=== PATIENT | female | born 1955 | race Caucasian/White ===

== ENCOUNTER 2017-01-31 13:18 | Inpatient (IN) | payer OTHER, MEDICAID ==
[2017-01-31] MEDS ORDERED: DUONEB 0.5 MG/3 MG NEB ONE (13:41)
[2017-01-31] MEDS ORDERED: SOLU-MEDROL 125 MG VIAL IVP ONE (13:41)
[2017-01-31] MEDS ORDERED: LEVAQUIN PREMIX IV 500 MG 500 MG/100 ML BAG IV ONE ×2 (13:44→14:24)
--- NOTE | 2017-01-31 13:49 | DR.GENAD ---
HPI - PCP Primary Care Physician: MARVIN STEPHENSON - Complaint/Symptoms Chief Complaint Doctors Comments: Patient states she has had a cough with wheezing for the past three weeks with SOB bt denies fever, chills, nausea or vomiting. States she has been coughing up thick yellow-white sputum. States she has been using the Combivent inhalers as needed. States she has home oxygen and usually use four liters but recently she has needed six liters to keep her oxygen up. She is a diabetic and states she is a patient of Dr. Young and she talke with his assistant to the vice president today and they told her she needed to come to the emergency for possible admission. She denies tobacco or alcohol usage. Chief Complaint:: PT STATES " I HAVE BEEN SOB, AND I DON'T HAVE AN 02 TANK TO GET TO THE DR. AND I HAVE BEEN FIGHTING PNUEMONIA, OR THE FLU". Self Treatment fo Chief Complaint: PT WEARS HOME 02 AT 6-7 LITERS - Nurses notes reviewed Nurses Notes Review: Yes - Source History Provided: Patient - Mode of Arrival Mode of Arrival: Stretcher - Timing Onset of Chief Complaint: 01/13/17 Came on: Suddenly - Duration Duration: Intermittent How lon Duration: Days - Location Location: SOB and problems breathin - Severity Severity: Moderate - Modifying Factors Worsens:: movement Improves:: nothing PMH - PMH Past Medical History: Yes Past Medical History: Asthma, COPD, Diabetes, Hyperthyroidism Past Surgical History: Yes Surgical History: Other - Family History History of Family Medical Conditions: No - Social History Does any household member use tobacco: Yes Do you use any recreational Drugs:: No Lives With: Family Lives Where: Home - infectious screening In the last 2 months have you had wt loss of >10#?: NO Have you had fever, night sweats or hemotysis?: No Have you traveled outside the country in the last 6 months?: No Isolation: Standard ROS - Review of Systems Constitutional: No Symptoms Reported, Weakness, Loss of Appetite Eyes: No Symptoms Reported. negative: See HPI, Eye Pain, Blurred Vision, Tearing, Discharge, Photophobia, Diplopia, Other ENTM: No Symptoms Reported, Nose Discharge, Nose Congestion Respiratoy: No Symptoms Reported, Productive Cough, Short of Breath, Wheezing Cardiovascular: No Symptoms Reported. negative: See HPI, Chest Pain, Edema, Palpitations, Syncope, Cyanosis, Skin Mottling, Other Gastrointestinal/Abdominal: No Symptoms Reported. negative: See HPI, Abdominal Pain, Constipation, Diarrhea, Nausea, Vomiting, Food Intolerance, Other Genitourinary: No Symptoms Reported Neurological: No Symptoms Reported Musculoskeletal: No Symptoms Reported Integumentary: No Symptoms Reported Hematologic/Lymphatic: No Symptoms Reported Endocrine: No Symptoms Reported Psychiatric: No Symptoms Reported PE - Vital Signs Vitals: Temperature 97.0 F Pulse Rate 132 Respiratory Rate 20 Blood Pressure [Right Arm] 83/43 Blood Pressure 144/100 O2 Sat by Pulse Oximetry 88 - General Limitations: No Limitations General Appearance: Alert, In Distress (moderate) - Head Head Exam: Normal Inspection, Atraumatic, Normocephalic - Eyes Eye exam: Normal Appearance, PERRL, EOMI. negative: Scleral Icterus, Conjunctival Injection, Nystagmus, Miosis, Mydrasis, Periorbital Swelling, Periorbital Tenderness, Other - ENT ENT Exam: Normal Exam, Normal Oropharynx, Normal External Ear Exam, Mucous Membranes Moist, TM's Normal Bilaterally External Ear Exam: Normal External Inspection TM/Canal Exam: Bilateral Normal Nose Exam: Normal Nose Exam Mouth Exam: Normal Inspection Throat Exam: Normal Inspection. negative: Tonsillar Erythema, Tonsillomegaly, Tonsillar Exudate, R Peritonsillar Mass, L Peritonsillar Mass, Muffled Voice, Other - Neck Neck Exam: Normal Inspection, Full ROM, Trachea Midline - Chest Chest Inspection: Normal Inspection, Symmetric Chest Wall Rise - Respiratory Respiratory Exam: Normal Lung Sounds Bilat, Prolonged Expiratory Phase Respiratory Exam: Bilateral Wheezing, Bilateral Decreased Breath Sounds, Left Rales - Cardiovascular Cardiovascular Exam: Regular Rate, Normal Rhythm, Normal Heart Sounds, Systolic Murmur - Abdominal Exam Abdominal Exam: Normal Inspection, Normal Bowel Sounds, Soft. negative: Distention, Tenderness, Guarding, Rebound, Rigidity, Dimnished Bowel Sounds, Hyperactive Bowel Sounds, Hypoactive Bowel Sounds, Organomegaly, Trauma, Incision, Ascites, Mass, Bruit, Pulsatile Mass, Hernia, Other Abdominal Tenderness: negative: RUQ, RLQ, LUQ, LLQ, Epigastrium, Suprapubic, Diffuse, Mild, Moderate, Severe, Other - Extremities Extremities Exam: Normal Inspection, Full ROM, Normal Capillary Refill. negative: Tenderness, Edema, Joint Swelling, Calf Tenderness, Other - Back Back Exam: Normal Inspection, Full ROM, Tenderness. negative: (R) CVA Tenderness, (L) CVA Tenderness, Muscle Spasm, Paraspinal Tenderness, Vertebral Tenderness, Rashes, (R) Sciatic Notch Tenderness, (L) Sciatic Notch Tendern, (R ) Straight Leg Raise, (L) Straight Leg Raise, Other - Neurologic Neurological Exam: Alert, Oriented X3, CN II-XII Intact, Reflexes Normal. negative: Normal Gait (gait not tested) - Psychiatric Psychiatric Exam: Normal Affect, Normal Mood. negative: Depressed, Agitated, Anxious, Flat Affect, Manic, Homicidal Ideation, Suicidal Ideation, Other - Skin Skin Exam: Warm, Dry, Intact, Normal Color. negative: Rash, Cyanosis, Diaphoresis, Erythema, Pallor, Mottled, Other Course - Reevaluation 1st: Improved - Consultation Called: 16:23 Call Returned: 16:23 (Dr. Springer to admit) - Education/Counseling Education/Counseling: Patient, Family Educated On: Treatment, Diagnosis, Prognosis, Needs for Follow Up ROR - Labs Reviewed Laboratory Results Reviewed?: Yes (all labs and x-ray results reviewed and discussed with patient) Result Diagrams: 01/31/17 13:55 01/31/17 13:55 Laboratory: WBC 8.0 X10^3/uL (3.6-10.0) 01/31/17 13:55 RBC 4.13 X10^6/uL (3.5-5.4) 01/31/17 13:55 Hgb 12.0 g/dL (12.0-16.0) 01/31/17 13:55 Hct 36.8 % (36.0-47.0) 01/31/17 13:55 MCV 88.9 fL (80.0-100.0) 01/31/17 13:55 MCH 29.0 pg (27.0-34.0) 01/31/17 13:55 MCHC 32.6 g/dL (33.0-35.0) L 01/31/17 13:55 RDW 13.0 % (11.6-16.5) 01/31/17 13:55 Plt Count 355 X10^3/uL (150.0-450.0) 01/31/17 13:55 MPV 7.0 fL (7.4-11.0) L 01/31/17 13:55 Neut % 83.2 % (42.0-75.0) H 01/31/17 13:55 Lymph % 8.0 % (21.0-51.0) L 01/31/17 13:55 [place] % 7.5 % (0.0-13.0) 01/31/17 13:55 Eos % 0.8 % (0.9-2.9) L 01/31/17 13:55 Baso % 0.5 % (0.2-1.0) 01/31/17 13:55 Neut # 6.6 x10^3/uL (2.2-4.8) H 01/31/17 13:55 Lymph # 0.6 X10^3/uL (1.3-2.9) L 01/31/17 13:55 [place] # 0.6 x10^3/uL (0.3-0.8) 01/31/17 13:55 Eos # 0.1 x10^3/uL (0.0-0.2) 01/31/17 13:55 Baso # 0.0 X10^3/uL (0.0-0.1) 01/31/17 13:55 Absolute Nucleated RBC 0.0 /100WBC 01/31/17 13:55 INR Target Range - 01/31/17 13:55 INR 1.00 (0.8-1.3) 01/31/17 13:55 PTT 22.8 SECONDS (22.9-36.5) L 01/31/17 13:55 PTT Comment - 01/31/17 13:55 Sample Site rrad 01/31/17 13:41 ABG pH 7.380 (7.35-7.45) 01/31/17 13:41 ABG pCO2 99.0 mmHg (35.0-45.0) H* 01/31/17 13:41 ABG pO2 150.0 mmHg (80.0-100.0) H 01/31/17 13:41 ABG HCO3 58.6 mmol/L (22-26) H* 01/31/17 13:41 ABG O2 Saturation 99.0 % (90-100) 01/31/17 13:41 ABG Base Excess 27.5 mmol/L (-2.0-2.0) H 01/31/17 13:41 [place] Test pos 01/31/17 13:41 A-a Gradient -24.0 mmHg 01/31/17 13:41 FiO2 35 01/31/17 13:41 Blood Gas Comments kirk well 01/31/17 13:41 Sodium 140 mmol/L (136-145) 01/31/17 13:55 Corrected Sodium 145 mmol/L (136-145) 01/31/17 13:55 Potassium 4.2 mmol/L (3.5-5.1) 01/31/17 13:55 Chloride 94 mmol/L (98-107) L 01/31/17 13:55 Carbon Dioxide > 45.0 mmol/L (21-32) H* 01/31/17 13:55 BUN 24 mg/dL (7-18) H 01/31/17 13:55 Creatinine 1.15 mg/dL (0.55-1.02) H 01/31/17 13:55 Est GFR (MDRD) Af Amer > 60 (>60) 01/31/17 13:55 Est GFR (MDRD) Non-Af 51 (>60) L 01/31/17 13:55 Glucose 300 mg/dL (65-99) H 01/31/17 13:55 Calcium 9.3 mg/dL (8.5-10.1) 01/31/17 13:55 Corrected Calcium 10.7 mg/dL (8.5-10.1) H 01/31/17 13:55 Magnesium 2.0 mg/dL (1.7-2.9) 01/31/17 13:55 Total Bilirubin 0.30 mg/dL (0.2-1.0) 01/31/17 13:55 AST 15 Units/L (15-37) 01/31/17 13:55 ALT 18 Units/L (12-78) 01/31/17 13:55 Alkaline Phosphatase 86 Units/L (46-116) 01/31/17 13:55 Creatine Kinase 41 Units/L (26-192) 01/31/17 13:55 CK-MB (CK-2) 1.2 ng/mL (0-4.0) 01/31/17 13:55 CK/CKMB % Calc 2.9 % (<4) 01/31/17 13:55 Troponin I 0.03 ng/mL (0-1.5) 01/31/17 13:55 Total Protein 7.5 g/dL (6.4-8.2) 01/31/17 13:55 Albumin 2.3 g/dL (3.4-5.0) L 01/31/17 13:55 Globulin 5.2 g/dL (2.5-4.5) H 01/31/17 13:55 Albumin/Globulin Ratio 0.4 Ratio (1.1-2.1) L 01/31/17 13:55 - XRAY XRAY Interpreted by: Radiologist (CXR: Heart normal size for evidence of bacterial pneumonia. Possible bronchitis) - Diagnosis Discharge Problem: Respiratory distress, Hypercapnemia, Bronchitis COPD (chronic obstructive pulmonary disease) Qualifiers: COPD type: COPD with acute exacerbation Qualified Code(s): J44.1 - Chronic obstructive pulmonary disease with (acute) exacerbation Diabetes mellitus Qualifiers: Diabetes mellitus type: type 1 - Discharge Plan Disposition: ADMITTED INPATIENT Condition: Stable - Follow ups/Referrals Follow ups/Referrals: Dinora Anderson [Primary Care Provider] - 3 days - Instructions
[2017-01-31] MEDS ORDERED: DUONEB 0.5 MG/3 MG ONE ×2 (13:52→13:56)
[2017-01-31] MEDS ORDERED: SOLU-MEDROL 125 MG VIAL ONE (13:53)
[2017-01-31] MEDS: NS 1000 ML 1,000 ML IV SCH (13:57)
[2017-01-31 14:07] LABS: BASOPHILS % (AUTO) 0.5 % (0.2-1.0); EOSINOPHILS # (AUTO) 0.1 x10^3/uL (0.0-0.2); EOSINOPHILS % (AUTO) 0.8 % (0.9-2.9); HEMATOCRIT 36.8 % (36.0-47.0); LYMPHOCYTES # (AUTO) 0.6 X10^3/uL (1.3-2.9); MEAN CORPUSCULAR HGB CONC 32.6 g/dL (33.0-35.0); MEAN CORPUSCULAR VOLUME 88.9 fL (80.0-100.0); MONOCYTES # (AUTO) 0.6 x10^3/uL (0.3-0.8); MONOCYTES % (AUTO) 7.5 % (0.0-13.0); NEUTROPHILS # (AUTO) 6.6 x10^3/uL (2.2-4.8); NEUTROPHILS % (AUTO) 83.2 % (42.0-75.0); PLATELET COUNT 355 X10^3/uL (150.0-450.0); RED BLOOD COUNT 4.13 X10^6/uL (3.5-5.4)
[2017-01-31 14:27] LABS: BLOOD UREA NITROGEN 24 mg/dL (7-18); CALCIUM 9.3 mg/dL (8.5-10.1); CHLORIDE 94 mmol/L (98-107); COR NA(FOR HYPERGLY) 145 mmol/L (136-145); CREATININE 1.15 mg/dL (0.55-1.02); GLUCOSE 300 mg/dL (65-99); SODIUM 140 mmol/L (136-145); TROPONIN I 0.03 ng/mL (0-1.5); eGFR BLACK RACES > 60 (>60); eGFR NON BLACK RACES 51 (>60)
[2017-01-31 14:31] LABS: ALANINE AMINOTRANSFERASE 18 Units/L (12-78); ALBUMIN 2.3 g/dL (3.4-5.0); ALKALINE PHOSPHATASE 86 Units/L (46-116); ASPARTATE AMINO TRANSFERASE 15 Units/L (15-37); CKMB % 2.9 % (<4); COR CA(FOR HYPOALB) 10.7 mg/dL (8.5-10.1); CREATINE KINASE 41 Units/L (26-192); CREATINE KINASE MB 1.2 ng/mL (0-4.0); TOTAL PROTEIN 7.5 g/dL (6.4-8.2)
[2017-01-31 14:43] LABS: CARBON DIOXIDE > 45.0 mmol/L (21-32)
[2017-01-31 15:13] LABS: ABG ALLEN TEST pos; FRACTIONATED INSPIRED OXYGEN 35
--- NOTE | 2017-01-31 15:13 | RAD ---
HISTORY: Shortness of breath Study: AP portable chest obtained 2:33 p.m. Comparison: Findings: The trachea is midline . There is no widening or shift of mediastinum. The cardiac silhouette appear s within normal limits. The costophrenic angles are sharp and both diaphragms are adequately maintai han. The lungs are adequately aerated. Osseous structures are within normal limits for the patient's age There is no evidence of active inflammatory disease.. Prominent central pulmonary arteries are noted bilaterally which may be secondary to pulmonary hypertension. Peribronchial cuffing centrally and both lower lobes consistent with bronchitis. IMPRESSION: 1. Heart normal size no evidence of bacterial pneumonia.. Possible bronchitis. Reported By:
[2017-01-31] MEDS: DUONEB 0.5 MG/3 MG NEB SCH (21:33)
[2017-01-31] MEDS: HUMULIN R SC PRN (21:58)
[2017-01-31] MEDS: ROBITUSSIN DM PO PRN (22:00)
[2017-01-31] MEDS ORDERED: STERILE WATER IRRIGATION IR ONE (22:05)
[2017-01-31] MEDS: UNIPHYL TAB 400 MG PO SCH (23:53)
[2017-01-31] MEDS: NEURONTIN CAP 100 MG PO SCH (23:53)
[2017-01-31] MEDS: AMBIEN PO SCH (23:53)
[2017-01-31] MEDS: TOPROL XL PO SCH (23:53)
[2017-01-31] MEDS: XANAX PO SCH (23:53)
[2017-01-31] MEDS: LIPITOR TAB 10 MG PO SCH (23:53)
[2017-01-31] MEDS: PERCOCET TAB 5/325 MG PO PRN (23:54)
[2017-02-01] MEDS ORDERED: NYSTATIN POWDER ONE (00:51)
[2017-02-01] MEDS: DUONEB 0.5 MG/3 MG NEB SCH ×7 (01:00→21:33)
[2017-02-01 01:57] VITALS: BMI 29.0
[2017-02-01] MEDS: NS 1000 ML 1,000 ML IV SCH ×2 (04:54→17:44)
[2017-02-01 05:07] LABS: ABG BASE EXCESS 27.6 mmol/L (-2.0-2.0)
[2017-02-01 05:09] LABS: ABG HCO3 58.2 mmol/L (22-26)
[2017-02-01 05:10] LABS: ABG ALLEN TEST POSITIVE
[2017-02-01] MEDS: HUMULIN R SC PRN ×5 (06:00→21:18)
[2017-02-01 06:12] LABS: BLOOD UREA NITROGEN 29 mg/dL (7-18); CALCIUM 9.3 mg/dL (8.5-10.1); CHLORIDE 96 mmol/L (98-107); COR NA(FOR HYPERGLY) 143 mmol/L (136-145); CREATININE 1.16 mg/dL (0.55-1.02); GLUCOSE 234 mg/dL (65-99); SODIUM 140 mmol/L (136-145); eGFR BLACK RACES > 60 (>60); eGFR NON BLACK RACES 50 (>60)
[2017-02-01 06:16] LABS: BASOPHILS % (AUTO) 0.3 % (0.2-1.0); HEMATOCRIT 35.6 % (36.0-47.0); HEMOGLOBIN 11.6 g/dL (12.0-16.0); LYMPHOCYTES # (AUTO) 0.5 X10^3/uL (1.3-2.9); MEAN CORPUSCULAR HEMOGLOBIN 28.9 pg (27.0-34.0); MEAN CORPUSCULAR HGB CONC 32.6 g/dL (33.0-35.0); MEAN CORPUSCULAR VOLUME 88.8 fL (80.0-100.0); MEAN PLATELET VOLUME 7.1 fL (7.4-11.0); MONOCYTES # (AUTO) 0.2 x10^3/uL (0.3-0.8); MONOCYTES % (AUTO) 5.2 % (0.0-13.0); NEUTROPHILS % (AUTO) 84.5 % (42.0-75.0); PLATELET COUNT 341 X10^3/uL (150.0-450.0); RED BLOOD COUNT 4.01 X10^6/uL (3.5-5.4); RED CELL DISTRIBUTION WIDTH 13.2 % (11.6-16.5); WHITE BLOOD COUNT 4.7 X10^3/uL (3.6-10.0)
[2017-02-01] MEDS: PERCOCET TAB 5/325 MG PO PRN ×3 (06:26→23:00)
[2017-02-01 06:33] LABS: CARBON DIOXIDE > 45.0 mmol/L (21-32)
[2017-02-01 08:46] LABS: BILIRUBIN,URINE NEGATIVE (NEGATIVE); BLOOD/HEMOGLOBIN,URINE 3+ (NEGATIVE); GLUCOSE, URINE 2+ (NEGATIVE); KETONES,URINE NEGATIVE (NEGATIVE); LEUKOCYTE ESTERASE ,URINE 2+ (NEGATIVE); NITRITES,URINE POSITIVE (NEGATIVE); PROTEIN,URINE 4+ (NEGATIVE); UROBILINOGEN,URINE NORMAL (NORMAL)
[2017-02-01 08:47] LABS: APPEARANCE,URINE CLOUDY (CLEAR); COLOR,URINE YELLOW (YELLOW)
[2017-02-01 08:48] LABS: AMORPHOUS SEDIMENT,UR TRACE /HPF (NEGATIVE); BACTERIA,URINE 3+ /HPF (NEGATIVE); RBC,URINE 0-3 /HPF (NEGATIVE); SQUAMOUS EPITHELIAL CELL,UR MODERATE /HPF (NEGATIVE)
[2017-02-01 08:49] LABS: HYALINE CASTS, URINE RARE /LPF (NEGATIVE)
[2017-02-01] MEDS: SINGULAIR TAB 10 MG PO SCH (09:00)
[2017-02-01] MEDS: PREVACID PO SCH (09:00)
[2017-02-01] MEDS: TOPROL XL PO SCH ×2 (09:00→20:56)
[2017-02-01] MEDS: ASPIRIN EC 81 MG PO SCH (09:00)
[2017-02-01] MEDS: LEVAQUIN PREMIX IV 500 MG 500 MG/100 ML BAG IV SCH (09:01)
[2017-02-01] MEDS: XANAX PO SCH ×2 (09:15→09:19)
[2017-02-01] MEDS: SOLU-MEDROL 40 MG VIAL IVP SCH ×3 (09:15→17:43)
[2017-02-01] MEDS: NYSTATIN POWDER TOP SCH ×2 (09:16→20:58)
[2017-02-01] MEDS: PATIENT'S HOME MEDICATION PO SCH ×2 (09:24→13:47)
[2017-02-01] MEDS: CALAN SR 240 MG PO SCH (09:24)
[2017-02-01] MEDS: LANTUS SC SCH (09:31)
[2017-02-01] MEDS: ATIVAN TAB 0.5 MG PO PRN (15:22)
[2017-02-01] MEDS: FORTAZ or TAZICEF INJ IV SCH ×2 (15:26→21:07)
[2017-02-01] MEDS: UNIPHYL TAB 400 MG PO SCH (20:54)
[2017-02-01] MEDS: ROBITUSSIN DM PO PRN (20:54)
[2017-02-01] MEDS: LIPITOR TAB 10 MG PO SCH (20:55)
[2017-02-01] MEDS: AMBIEN PO SCH (20:55)
[2017-02-01] MEDS: NEURONTIN CAP 100 MG PO SCH (20:57)
[2017-02-01] MEDS ORDERED: NS 50 ML IV 50 ML IV ONE (21:12)
[2017-02-02] MEDS: SOLU-MEDROL 40 MG VIAL IVP SCH (00:14)
[2017-02-02] MEDS ORDERED: FORTAZ or TAZICEF INJ ONE (01:16)
[2017-02-02] MEDS: DUONEB 0.5 MG/3 MG NEB SCH ×5 (01:18→20:41)
[2017-02-02] MEDS: ATIVAN TAB 0.5 MG PO PRN ×4 (01:28→22:29)
[2017-02-02] MEDS: NS 1000 ML 1,000 ML IV SCH ×3 (02:30→21:09)
[2017-02-02 05:10] LABS: BASOPHILS % (AUTO) 0.4 % (0.2-1.0); HEMATOCRIT 36.7 % (36.0-47.0); HEMOGLOBIN 11.9 g/dL (12.0-16.0); LYMPHOCYTES # (AUTO) 0.5 X10^3/uL (1.3-2.9); LYMPHOCYTES % (AUTO) 6.5 % (21.0-51.0); MEAN CORPUSCULAR HEMOGLOBIN 28.5 pg (27.0-34.0); MEAN CORPUSCULAR HGB CONC 32.5 g/dL (33.0-35.0); MEAN CORPUSCULAR VOLUME 87.7 fL (80.0-100.0); MEAN PLATELET VOLUME 7.3 fL (7.4-11.0); MONOCYTES # (AUTO) 0.5 x10^3/uL (0.3-0.8); MONOCYTES % (AUTO) 6.2 % (0.0-13.0); NEUTROPHILS # (AUTO) 6.8 x10^3/uL (2.2-4.8); NEUTROPHILS % (AUTO) 86.9 % (42.0-75.0); PLATELET COUNT 425 X10^3/uL (150.0-450.0); RED BLOOD COUNT 4.18 X10^6/uL (3.5-5.4); RED CELL DISTRIBUTION WIDTH 13.2 % (11.6-16.5); WHITE BLOOD COUNT 7.8 X10^3/uL (3.6-10.0)
[2017-02-02 05:32] LABS: ALBUMIN 2.4 g/dL (3.4-5.0); CALCIUM 9.1 mg/dL (8.5-10.1); COR CA(FOR HYPOALB) 10.4 mg/dL (8.5-10.1); CREATININE 1.25 mg/dL (0.55-1.02); TOTAL PROTEIN 7.5 g/dL (6.4-8.2)
[2017-02-02 05:36] LABS: CARBON DIOXIDE 44.6 mmol/L (21-32)
[2017-02-02] MEDS: FORTAZ or TAZICEF INJ 2 GM in NS 50 ML IV + SPIKE MINIBAG* 50 ML IV SCH ×2 (05:40→13:49)
[2017-02-02] MEDS ORDERED: SOLU-MEDROL 40 MG VIAL IVP SCH (06:27)
--- NOTE | 2017-02-02 07:24 | RAD ---
HISTORY: Respiratory distress Study: Chest one view Comparison: January 31, 2017 Findings: The heart is within normal limits in size. The whitley are normal. The lungs are free of acute alveolar infiltrates. No pleural effusions are identified. There is mild peribronchial thickening consistent with bronchitis. The bony thorax is unremarkable. IMPRESSION: Peribronchial thickening consistent with bronchitis Reported By:
[2017-02-02] MEDS: PERCOCET TAB 5/325 MG PO PRN ×3 (07:30→21:28)
[2017-02-02] MEDS: LEVAQUIN PREMIX IV 500 MG 500 MG/100 ML BAG IV SCH (09:16)
[2017-02-02] MEDS: CALAN SR 240 MG PO SCH (09:16)
[2017-02-02] MEDS: ASPIRIN EC 81 MG PO SCH (09:16)
[2017-02-02] MEDS: TOPROL XL PO SCH ×2 (09:16→21:05)
[2017-02-02] MEDS: PREVACID PO SCH (09:16)
[2017-02-02] MEDS: SINGULAIR TAB 10 MG PO SCH (09:17)
[2017-02-02] MEDS: NYSTATIN POWDER TOP SCH ×2 (09:17→21:08)
[2017-02-02] MEDS: PATIENT'S HOME MEDICATION PO SCH ×2 (09:18→14:44)
[2017-02-02] MEDS: LANTUS SC SCH (09:24)
[2017-02-02] MEDS ORDERED: HUMULIN R SC PRN (09:30)
[2017-02-02] MEDS: LOVENOX INJ 30 MG SYR SC SCH ×2 (10:37→21:07)
[2017-02-02] MEDS: HUMULIN R SC PRN ×3 (11:54→21:29)
[2017-02-02 12:00] LABS: ABG BASE EXCESS 22.4 mmol/L (-2.0-2.0)
[2017-02-02 12:01] LABS: ABG ALLEN TEST POS; ABG HCO3 51.1 mmol/L (22-26); FRACTIONATED INSPIRED OXYGEN 35
[2017-02-02 12:06] LABS: ABG BASE EXCESS 27.5 mmol/L (-2.0-2.0)
[2017-02-02 12:09] LABS: ABG HCO3 58.6 mmol/L (22-26)
--- NOTE | 2017-02-02 13:11 | DR.H&P ---
H&P - History & Physical for Day of: H&P Date: 01/31/17 - Chief Complaint Chief Complaint: SHORTNESS OF BREATH - Allergies Allergies/Adverse Reactions: Allergies Allergy/AdvReac Type Severity Reaction Status Date / Time Ceftriaxone [From Rocephin] Allergy Intermediate Verified 08/17/13 10:12 Dexamethasone [From Decadron] Allergy Intermediate Verified 08/17/13 10:12 Penicillins Allergy Intermediate Verified 08/17/13 09:44 Sulfa Drugs Allergy Intermediate Verified 08/17/13 10:12 Sulfamethoxazole Allergy Intermediate Verified 08/17/13 10:12 w/Trimethoprim [From Bactrim] - History of Present Illness History of Present Illness: THIS IS A 61 YEAR OLD FEMALE, WHO IS FOLLOWED BY [facility]. PATIENT PRESENTS TO THE EMERGENCY ROOM WITH COMPLAINTS OF INCREASING SHORTNESS OF BREATH. PATIENT REPORTS SHE HAS HAD A COUGH WITH WHEEZING FOR THE PAST THREE WEEKS WITH SHORTNESS OF BREATH. SHE DENIES FEVER, CHILL, NAUSEA, OR VOMITING. SHE REPORTS COUGH IS PRODUCTIVE. SHE IS NOTED WITH A PRODUCTIVE COUGH WITH THICK, YELLOW SPUTUM. PATIENT REPORTS A HISTORY OF COPD AND HAS HOME OXYGEN AND STATES SHE USUALLY IS ON 4 LPM BUT RECENTLY HAS HAD TO INCREASE TO 6LPM TO KEEP HER OXYGEN UP. SHE ALSO STATES SHE DOESN'T HAVE A PORTABLE OXYGEN TANK TO GET TO THE DOCTOR'S OFFICE. SHE REPORTS USING COMBIVENT INHALERS AT HOME DIRECTED. SHORTNESS OF BREATH WORSENS WITH MOVEMENT AND SHE IS NOTED WITH RESPIRATORY DISTRESS ON ARRIVAL. PATIENT WAS PLACED ON VENTI-MASK AND O2 SATURATION WAS 88%. LABS OBTAINED. CBC WNL. CMP WNL EXCEPT: CHL 94, CARBON DIOXIDE >45.0, BUN/CREAT 24/1.15, GFR 51, GLUCOSE 300 , ALBUMIN 2.3. ABG ABNORMALS: PCO2 99.0, PO2 150.0, HCO3 58.6, FIO2 35. URINALYSIS ABNORMALS: CLOUDY APPEARANCE, PROTEIN 4+, GLUCOSE 2+, OCCULT BLOOD 3+ , LEUKOCYTE ESTERASE 2+, WBC 10-20, BACTERIA 3+; CULTURE PENDING. SPUTUM AND BLOOD CULTURES OBTAINED AND ARE PENDING. CHEST XRAY REPORTS PERIBRONCHIAL CUFFING CENTRALLY AND BOTH LOWER LOBES. EKG: ATRIAL FIBRILLATION, RATE 132. WE WILL ADMIT PATIENT FOR FURTHER TREATMENT AND EVALUATION. WE WILL START IV LEVAQUIN, SOLUMEDROL, DUONEBS, SUPPLEMENTAL OXYGEN, AND ROBITUSSIN. WE WILL CONTINUE TO MONITOR AND FOLLOW UP IN AM WITH LABS. - Past Medical History Past Medical History: Asthma, COPD, Diabetes, Hyperthyroidism Additional Medical History: Sleep Apnea, Hypercapnea, Gastrointestinal Bleed, Constipation, Back Pain, Diabetic Neuropathy, Previous Blood Transfusion - Past Surgical History Surgical History: Other Additional Surgical History: Tubaligation - Family History Family Medical History: denies: Diabetes Mellitus, Cancer, [place], Coronary Artery Disease, Heart Failure, Sudden Cardiac , Hypertension - Social History Does patient currently use any type of tobacco product: No Have you used tobacco products in the last 12 months: No Type of Tobacco Use: None Does any household member use tobacco: Yes Alcohol Use: None Drug Use: None - Medications Home Medications: Alprazolam [XANAX 0.25 MG *] 0.25 mg PO BID 08/17/13 Gabapentin [NEURONTIN CAP 100 MG *] 100 mg PO HS 08/17/13 Insulin Glargine (Lantus) [LANTUS INSULIN 10 ML VIAL *] 80 units SC DAILY Lansoprazole [PREVACID 30 MG *] 30 mg PO DAILY 08/17/13 Theophylline [Theophylline ER 100 mg] 400 mg PO HS 08/17/13 Verapamil HCl [Verapamil HCl ER] 240 mg PO DAILY 08/17/13 Aspirin [Aspirin Adult Low Dose] 1 tab PO DAILY 01/31/17 Atorvastatin Calcium [LIPITOR Tab 10 mg *] 1 tab PO HS 01/31/17 Chlorpromazine HCl 1 tab PO BID 01/31/17 Dextromethorphan-Guaifenesin [ROBITUSSIN DM SYRUP *] 10 ml PO PRN PRN Lactulose Syrup [CHRONULAC SYRUP *] 10 mg PO DAILY PRN 01/31/17 Metoprolol Succinate Ext Rel [TOPROL XL 25 MG *] 1 tab PO BID 01/31/17 Montelukast Sodium [SINGULAIR TAB 10 MG *] 1 tab PO DAILY 01/31/17 Oxycodone W/ Acetaminophen [Endocet 10-325 mg] 1 tab PO Q6H PRN 01/31/17 Zolpidem Tartrate [AMBIEN 10 MG *] 1 tab PO HS 01/31/17 - Review of Systems Constitutional: Weakness, Malaise Eyes: No Symptoms Reported. denies: Pain, Vision Change, Conjunctivae Inflammation, Eyelid Inflammation, Redness ENT: No Symptoms Reported. denies: Ear Pain, Ear Discharge, Nose Pain, Nose Discharge, Nose Congestion, Mouth Pain, Mouth Swelling, Throat Pain, Throat Swelling Respiratory: Cough, Shortness of Breath, SOB with Excertion, Sputum, Wheezing. denies: Hemoptysis, Pleuritic Pain Cardiovascular: No Symptoms Reported. denies: Chest Pain, Palpitations, Orthopnea, Paroxysmal Noc. Dyspnea, Edema, Light Headedness Gastrointestinal: No Symptoms Reported. denies: Nausea, Vomiting, Abdominal Pain, Diarrhea, Constipation, Melena, Hematochezia Genitourinary: Frequency. denies: Dysuria, Incontinence, Hematuria, Retention Musculoskeletal: No Symptoms Reported. denies: Shoulder Pain, Back Pain, Hand Pain, Leg Pain, Foot Pain, Neck Pain Skin: No Symptoms Reported. denies: Rash, Lesions, Jaundice, Bruising, Wound, Ecchymosis Neurological: No Symptoms Reported. denies: Weakness, Numbness, Incoordination , Change in Speech, Confusion, Seizures - Physical Exam Vital Signs: Temperature 98.1 F Pulse Rate [Left Brachial] 74 Pulse Rate [Right Brachial] 103 Pulse Rate 102 Respiratory Rate 18 Blood Pressure [Left Arm] 135/71 Blood Pressure [Right Arm] 167/91 O2 Sat by Pulse Oximetry 96 Oriented: Normal, Time, Person, Place Eyes: Normal. negative: Blurred Vision, Diplopia, Discharge, Pain, Redness, Photophobia Ear: Normal. negative: Swelling, Ecchymosis, Hemotypanum, Abrasion, Laceration Nose: Discharge. negative: Injected, Blood Throat: Red, Dry. negative: Tonsillar Hypertrophy, Exudate Respiratory: Rhonchi Throughout, Wheezes Throughout Cardiovascular: Irregular (Irreg, irreg). negative: Murmur, Edema : Hematuria, Frequency, Discharge. negative: Bleeding, Auscultation: Bowel Sounds: Normal. negative: Bruit Palpation: Normal. negative: Spleen Enlarged, Liver Enlarged, Mass Pulsatile Tenderness: Normal. negative: Rebound, Guarding, Rigidity Skin: Normal. negative: Diaphoresis, Wound, Bruising, Ecchymosis Musculoskeletal: Instability Psychiatric: Normal Mood Description: Anxious Affect: Anxious Speech Pattern: Clear, Appropriate - Assessment/Plan (1) COPD (chronic obstructive pulmonary disease) Qualifiers: COPD type: COPD with acute exacerbation Chronic bronchitis type: C Emphysema type: E Qualified Code(s): J44.1 - Chronic obstructive pulmonary disease with (acute) exacerbation Status: Acute Plan: ADMIT PATIENT, START IV LEVAQUIN, IV SOLUMEDROL, DUONEBS, SUPPLEMENTAL OXYGEN, ROBITUSSIN, MONITOR LABS AND CHEST XRAY. (2) Respiratory distress Status: Acute Plan: ABOVE. (3) Hypercapnemia Status: Acute Plan: ABOVE. (4) Bronchitis Status: Acute Plan: ABOVE. (5) Diabetes mellitus Qualifiers: Diabetes mellitus type: type 1 Diabetes mellitus complication status: D Diabetes mellitus complication detail: D Diabetic retinopathy severity: D Proliferative retinopathy type: P Diabetes mellitus macular edema: D Diabetes mellitus senior care insulin use: D Laterality: L Chronic kidney disease stage: C Status: Acute
--- NOTE | 2017-02-02 13:40 | PCM.PROG ---
Progress Note - Progress Note for Day of Date: 02/02/17 - Subjective Subjective: PATIENT IS SHORT OF BREATH UPON ROUNDS. SHE CONTINUES ON BIPAP. WE OBTAINED AND ABG THIS MORNING AND IT IS SHOWING IMPROVEMENT WITH BIPAP. ABG ABNORMALS: PCO2 77.0, HCO3 51.1, FIO2 35.0. DAUGHTER AT BEDSIDE. PATIENT VOICES CONTINUED ANXIETY WITH TREMBLING. WE DISCUSS SIDE EFFECTS OF SOLUMEDROL AND DUONEBS FOR TREATMENT OF COPD EXACERBATION, SHE VOICES UNDERSTANDING. PATIENT IS IMMOBILE AT THIS TIME EXCEPT FOR BATHROOM USE DUE TO SEVERE SHORNTESS OF BREATH. ON AUSCULTATION, LUNGS ARE NOTED WITH BILATERAL WHEEZING AND RHONCHI. COUGH IS MOIST, NON-PRODUCTIVE. CBC WNLE EXCEPT: H/H 11.6/35.6. CMP WNL EXCEPT: CHL 95, CARBON DIOXIDE 44.6, BUN/CREAT 33/1.25, GFR 46, GLUCOSE 188, ALBUMIN 2.4. AWAITING BLOOD, URINE, SPUTUM CULTURES. CHEST XRAY CONTINUES TO REORTS PERIBRONCHIAL THICKENING. WE WILL START LOVENOX BID, INCREASE SOLUMEDROL TO 80MG Q8H, INCREASE DUONEBS TO 2 NEBS QID, INCREASE ATIVAN TO QID, INCREASE PERCOCET TO QID. WE WILL CONTINUE TO MONITOR AND FOLLOW UP IN AM WITH LABS, CHEST XRAY, AND ABG. - Past Medical Family Social History Past Med/Fam/Surg Hx: No changes since H&P Allergies: Allergies Ceftriaxone [From Rocephin] Allergy (Intermediate, Verified 08/17/13 10:12) Dexamethasone [From Decadron] Allergy (Intermediate, Verified 08/17/13 10:12) Penicillins Allergy (Intermediate, Verified 08/17/13 09:44) Sulfa Drugs Allergy (Intermediate, Verified 08/17/13 10:12) Sulfamethoxazole w/Trimethoprim [From Bactrim] Allergy (Intermediate, Verified 08/17/13 10:12) - Review of Systems ROS: No change since H&P - Vital Signs and I&O's Vital Signs: Temperature 98.4 F Pulse Rate [Left Brachial] 107 Pulse Rate [Right Brachial] 103 Pulse Rate 102 Respiratory Rate 26 Blood Pressure [Left Arm] 147/71 Blood Pressure [Right Arm] 167/91 O2 Sat by Pulse Oximetry 96 Intake and Output: Intake & Output 04/08/02/01/17 02/02/17 02/03/17 11:59 11:59 11:59 11:59 Intake Total 1830 1590 Balance 1830 1590 - Physical Exam Oriented: Normal, Time, Person, Place Eyes: Normal. negative: Blurred Vision, Diplopia, Discharge, Pain, Redness, Photophobia Ear: Normal. negative: Swelling, Ecchymosis, Hemotypanum, Abrasion, Laceration Nose: Discharge. negative: Injected, Blood Throat: Red, Dry. negative: Tonsillar Hypertrophy, Exudate Respiratory: Generalized, Wheezes, Rhonchi Cardiovascular: Irregular (Irreg, irreg). negative: Murmur, Edema : Hematuria, Frequency, Discharge. negative: Bleeding, Auscultation: Bowel Sounds: Normal. negative: Bruit Palpation: Normal. negative: Spleen Enlarged, Liver Enlarged, Mass Pulsatile Tenderness: Normal. negative: Rebound, Guarding, Rigidity Skin: Normal. negative: Diaphoresis, Wound, Bruising, Ecchymosis Musculoskeletal: Instability Psychiatric: Normal Mood Description: Calm, Appropriate Affect: Normal Speech Pattern: Clear, Appropriate - Laboratory and Diagnostics Result Diagrams: 02/02/17 04:40 02/02/17 04:40 Labs: 02/01/17 05:35 Urine,Clean Catch Urine Culture - Preliminary Laboratory WBC 7.8 X10^3/uL (3.6-10.0) 02/02/17 04:40 RBC 4.18 X10^6/uL (3.5-5.4) 02/02/17 04:40 Hgb 11.9 g/dL (12.0-16.0) L 02/02/17 04:40 Hct 36.7 % (36.0-47.0) 02/02/17 04:40 MCV 87.7 fL (80.0-100.0) 02/02/17 04:40 MCH 28.5 pg (27.0-34.0) 02/02/17 04:40 MCHC 32.5 g/dL (33.0-35.0) L 02/02/17 04:40 RDW 13.2 % (11.6-16.5) 02/02/17 04:40 Plt Count 425 X10^3/uL (150.0-450.0) 02/02/17 04:40 MPV 7.3 fL (7.4-11.0) L 02/02/17 04:40 Neut % 86.9 % (42.0-75.0) H 02/02/17 04:40 Lymph % 6.5 % (21.0-51.0) L 02/02/17 04:40 [place] % 6.2 % (0.0-13.0) 02/02/17 04:40 Eos % 0.0 % (0.9-2.9) L 02/02/17 04:40 Baso % 0.4 % (0.2-1.0) 02/02/17 04:40 Neut # 6.8 x10^3/uL (2.2-4.8) H 02/02/17 04:40 Lymph # 0.5 X10^3/uL (1.3-2.9) L 02/02/17 04:40 [place] # 0.5 x10^3/uL (0.3-0.8) 02/02/17 04:40 Eos # 0.0 x10^3/uL (0.0-0.2) 02/02/17 04:40 Baso # 0.0 X10^3/uL (0.0-0.1) 02/02/17 04:40 Absolute Nucleated RBC 0.1 /100WBC 02/02/17 04:40 INR Target Range - 01/31/17 13:55 INR 1.00 (0.8-1.3) 01/31/17 13:55 PTT 22.8 SECONDS (22.9-36.5) L 01/31/17 13:55 PTT Comment - 01/31/17 13:55 Sample Site Left radial 02/02/17 09:52 ABG pH 7.430 (7.35-7.45) 02/02/17 09:52 ABG pCO2 77.0 mmHg (35.0-45.0) H* 02/02/17 09:52 ABG pO2 87.0 mmHg (80.0-100.0) 02/02/17 09:52 ABG HCO3 51.1 mmol/L (22-26) H* 02/02/17 09:52 ABG O2 Saturation 97.0 % (90-100) 02/02/17 09:52 ABG Base Excess 22.4 mmol/L (-2.0-2.0) H 02/02/17 09:52 [place] Test Pos 02/02/17 09:52 A-a Gradient 66.0 mmHg 02/02/17 09:52 FiO2 35 02/02/17 09:52 Blood Gas Comments Julio well hm 02/02/17 09:52 Sodium 139 mmol/L (136-145) 02/02/17 04:40 Corrected Sodium 141 mmol/L (136-145) 02/02/17 04:40 Potassium 4.8 mmol/L (3.5-5.1) 02/02/17 04:40 Chloride 95 mmol/L (98-107) L 02/02/17 04:40 Carbon Dioxide 44.6 mmol/L (21-32) H* 02/02/17 04:40 BUN 33 mg/dL (7-18) H 02/02/17 04:40 Creatinine 1.25 mg/dL (0.55-1.02) H 02/02/17 04:40 Est GFR (MDRD) Af Amer 56 (>60) L 02/02/17 04:40 Est GFR (MDRD) Non-Af 46 (>60) L 02/02/17 04:40 Glucose 188 mg/dL (65-99) H 02/02/17 04:40 Calcium 9.1 mg/dL (8.5-10.1) 02/02/17 04:40 Corrected Calcium 10.4 mg/dL (8.5-10.1) H 02/02/17 04:40 Magnesium 2.0 mg/dL (1.7-2.9) 01/31/17 13:55 Total Bilirubin 0.30 mg/dL (0.2-1.0) 02/02/17 04:40 AST 28 Units/L (15-37) 02/02/17 04:40 ALT 25 Units/L (12-78) 02/02/17 04:40 Alkaline Phosphatase 71 Units/L (46-116) 02/02/17 04:40 Creatine Kinase 41 Units/L (26-192) 01/31/17 13:55 CK-MB (CK-2) 1.2 ng/mL (0-4.0) 01/31/17 13:55 CK/CKMB % Calc 2.9 % (<4) 01/31/17 13:55 Troponin I 0.03 ng/mL (0-1.5) 01/31/17 13:55 Total Protein 7.5 g/dL (6.4-8.2) 02/02/17 04:40 Albumin 2.4 g/dL (3.4-5.0) L 02/02/17 04:40 Globulin 5.1 g/dL (2.5-4.5) H 02/02/17 04:40 Albumin/Globulin Ratio 0.5 Ratio (1.1-2.1) L 02/02/17 04:40 Specimen Type Clean catch urine 02/01/17 05:35 Urine Color Yellow (YELLOW) 02/01/17 05:35 Urine Appearance Cloudy (CLEAR) 02/01/17 05:35 Urine pH 6.0 (5.0 - 8.0) 02/01/17 05:35 Ur Specific [place] 1.010 (1.000-1.030) 02/01/17 05:35 Urine Protein 4+ (NEGATIVE) 02/01/17 05:35 Urine Glucose (UA) 2+ (NEGATIVE) 02/01/17 05:35 Urine Ketones Negative (NEGATIVE) 02/01/17 05:35 Urine Occult Blood 3+ (NEGATIVE) 02/01/17 05:35 Urine Nitrite Positive (NEGATIVE) 02/01/17 05:35 Urine Bilirubin Negative (NEGATIVE) 02/01/17 05:35 Urine Urobilinogen Normal (NORMAL) 02/01/17 05:35 Ur Leukocyte Esterase 2+ (NEGATIVE) 02/01/17 05:35 Urine RBC 0-3 /HPF (NEGATIVE) 02/01/17 05:35 Urine WBC 10-20 /HPF (NEGATIVE) 02/01/17 05:35 Ur Squamous Epith Cells Moderate /HPF (NEGATIVE) 02/01/17 05:35 Amorphous Sediment Trace /HPF (NEGATIVE) 02/01/17 05:35 Urine Bacteria 3+ /HPF (NEGATIVE) 02/01/17 05:35 Hyaline Casts Rare /LPF (NEGATIVE) 02/01/17 05:35 Ur Culture Indicated? Yes/culture set up 02/01/17 05:35 - Plan (1) COPD (chronic obstructive pulmonary disease) Status: Acute Qualifiers: COPD type: COPD with acute exacerbation Chronic bronchitis type: C Emphysema type: E Qualified Code(s): J44.1 - Chronic obstructive pulmonary disease with (acute) exacerbation Plan: INCREASE SOLUMEDROL TO 80MG IV Q8H, INCREASE DUONEBS TO 2NEBS QID, CONTINUE BIPAP, IV LEVAQUIN, SUPPLEMENTAL OXYGEN, ROBITUSSIN, MONITOR LABS AND CHEST XRAY. (2) Respiratory distress Status: Acute Plan: ABOVE. (3) Hypercapnemia Status: Acute Plan: ABOVE. (4) Bronchitis Status: Acute Plan: ABOVE. (5) Anxiety Status: Acute Plan: INCREASE ATIVAN TO QID, MONITOR. (6) Generalized pain Status: Acute Plan: INCREASE PERCOCET TO QID, MONITOR. (7) Diabetes mellitus Status: Acute Qualifiers: Diabetes mellitus type: type 2 Diabetes mellitus complication status: with hyperglycemia Diabetes mellitus complication detail: D Diabetic retinopathy severity: D Proliferative retinopathy type: P Diabetes mellitus macular edema: D Diabetes mellitus terminal operator insulin use: with correction use Laterality: L Chronic kidney disease stage: C Qualified Code(s): E11.65 - Type 2 diabetes mellitus with hyperglycemia; Z79.4 - intermediate teacher (current) use of insulin
[2017-02-02] MEDS: SOLU-MEDROL 125 MG VIAL IVP SCH ×2 (13:49→21:07)
[2017-02-02] MEDS: FORTAZ or TAZICEF INJ 2 GM in NS 50 ML IV 50 ML IV SCH ×3 (14:34→22:30)
[2017-02-02] MEDS: LIPITOR TAB 10 MG PO SCH (21:05)
[2017-02-02] MEDS: UNIPHYL TAB 400 MG PO SCH (21:05)
[2017-02-02] MEDS: NEURONTIN CAP 100 MG PO SCH (21:05)
[2017-02-02] MEDS: AMBIEN PO SCH (21:09)
[2017-02-02] MEDS: SNACK - Diabetic Appropriate PO SCH (21:10)
[2017-02-02] MEDS: ROBITUSSIN DM PO PRN (21:28)
[2017-02-03] MEDS: PHENERGAN INJ 25 MG IV PRN (02:09)
[2017-02-03] MEDS: PERCOCET TAB 5/325 MG PO PRN ×4 (05:23→21:56)
[2017-02-03] MEDS: SOLU-MEDROL 125 MG VIAL IVP SCH ×3 (05:24→21:58)
[2017-02-03 05:31] LABS: BASOPHILS % (AUTO) 0.3 % (0.2-1.0); HEMATOCRIT 32.6 % (36.0-47.0); HEMOGLOBIN 10.7 g/dL (12.0-16.0); LYMPHOCYTES # (AUTO) 0.3 X10^3/uL (1.3-2.9); LYMPHOCYTES % (AUTO) 6.3 % (21.0-51.0); MEAN CORPUSCULAR HGB CONC 32.7 g/dL (33.0-35.0); MEAN CORPUSCULAR VOLUME 88.9 fL (80.0-100.0); MEAN PLATELET VOLUME 7.1 fL (7.4-11.0); MONOCYTES # (AUTO) 0.3 x10^3/uL (0.3-0.8); MONOCYTES % (AUTO) 5.8 % (0.0-13.0); NEUTROPHILS # (AUTO) 4.4 x10^3/uL (2.2-4.8); NEUTROPHILS % (AUTO) 87.6 % (42.0-75.0); PLATELET COUNT 310 X10^3/uL (150.0-450.0); RED BLOOD COUNT 3.67 X10^6/uL (3.5-5.4); RED CELL DISTRIBUTION WIDTH 13.2 % (11.6-16.5)
[2017-02-03 05:43] LABS: ALANINE AMINOTRANSFERASE 27 Units/L (12-78); ALBUMIN 2.1 g/dL (3.4-5.0); ALKALINE PHOSPHATASE 57 Units/L (46-116); ASPARTATE AMINO TRANSFERASE 28 Units/L (15-37); BLOOD UREA NITROGEN 32 mg/dL (7-18); CALCIUM 8.5 mg/dL (8.5-10.1); CHLORIDE 100 mmol/L (98-107); COR NA(FOR HYPERGLY) 145 mmol/L (136-145); CREATININE 1.15 mg/dL (0.55-1.02); GLUCOSE 245 mg/dL (65-99); SODIUM 142 mmol/L (136-145); TOTAL PROTEIN 6.2 g/dL (6.4-8.2); eGFR BLACK RACES > 60 (>60); eGFR NON BLACK RACES 51 (>60)
[2017-02-03] MEDS: HUMULIN R SC PRN ×4 (05:43→22:24)
[2017-02-03] MEDS: ROBITUSSIN DM PO PRN ×3 (05:44→21:57)
[2017-02-03 05:51] LABS: CARBON DIOXIDE 42.7 mmol/L (21-32)
[2017-02-03 05:54] LABS: ABG ALLEN TEST POS; ABG HCO3 51.4 mmol/L (22-26)
[2017-02-03] MEDS: FORTAZ or TAZICEF INJ 2 GM in NS 50 ML IV 50 ML IV SCH ×3 (06:02→22:05)
[2017-02-03] MEDS: ATIVAN TAB 0.5 MG PO PRN ×4 (06:02→21:55)
[2017-02-03] MEDS: LANTUS SC SCH (08:39)
[2017-02-03] MEDS: LOVENOX INJ 30 MG SYR SC SCH ×2 (08:41→21:57)
[2017-02-03] MEDS: TOPROL XL PO SCH ×2 (08:42→21:55)
[2017-02-03] MEDS: LEVAQUIN PREMIX IV 500 MG 500 MG/100 ML BAG IV SCH ×2 (08:42→09:15)
[2017-02-03] MEDS: ALBUMIN HUMAN 25%- 100ML 100 ML IV SCH (08:42)
[2017-02-03] MEDS: PREVACID PO SCH (08:43)
[2017-02-03] MEDS: CALAN SR 240 MG PO SCH (08:43)
[2017-02-03] MEDS: SINGULAIR TAB 10 MG PO SCH (08:43)
[2017-02-03] MEDS: ASPIRIN EC 81 MG PO SCH (08:43)
[2017-02-03] MEDS: NYSTATIN POWDER TOP SCH ×2 (08:47→22:02)
[2017-02-03] MEDS: PATIENT'S HOME MEDICATION PO SCH ×2 (08:47→14:13)
--- NOTE | 2017-02-03 09:02 | RAD ---
HISTORY: respiratory distress Study: Portable AP chest Comparison: 02/02/2017 Findings: The heart is normal. The pulmonary vessels are normal. The lungs are hypoinflated . The lung apices are not visualized due to the positioning . There is a moderate rounded opacity projecting along the right lung base which may represent overlying breast attenuation artifact. No effusion is seen. IMPRESSION: Limited study due to the positioning with the lung apices not visualized and a rounded opacity proje cting along the right lung base laterally which is suspicious for breast attenuation artifact otherw ise, unremarkable. Recommend a followup PA and lateral chest. Reported By:
[2017-02-03] MEDS: ZANAFLEX PO SCH (09:38)
[2017-02-03] MEDS: MAGIC MOUTHWASH MT SCH ×4 (09:38→21:59)
[2017-02-03] MEDS: DUONEB 0.5 MG/3 MG NEB SCH ×4 (09:42→20:05)
--- NOTE | 2017-02-03 13:59 | PCM.PROG ---
Progress Note - Progress Note for Day of Date: 02/03/17 - Subjective Subjective: PATIENT CONTINUES WITH SEVERE SHORTNESS OF BREATH WITH EXERTION. SHE STATES WHEN SHE SITS UP SHE IS SHORT OF BREATH. SHE IS UNABLE TO LIE FLAT IN BED DUE TO SHORTNESS OF BREATH. SHE CONTINUES ON BIPAP. DAUGHTER AT BEDSIDE. WE OBTAINED AND ABG AGAIN THIS MORNING AND IT CONTINUES TO SHOW IMPROVEMENT WITH BIPAP. PATIENT IS REPORTING LEG CRAMPS. PATIENT CONTINUES TO BE IMMOBILE AT THIS TIME EXCEPT FOR BATHROOM USE. SHE STATES SHE HAD SEEN A FUR FINISHER TAILOR YEARS AGO AND HE HAD STATED SHE HAD 20% LUNG FUNCTION DUE TO SEVERE COPD. ON AUSCULTATION, LUNGS CONTINUE WITH BILATERAL WHEEZING AND RHONCHI. COUGH IS MOIST, PRODUCTIVE. CBC WNLE EXCEPT: H/H 10.7/32.6. CMP WNL EXCEPT: CARBON DIOXIDE 42.7, BUN/CREAT 32/1.15, GFR 51, GLUCOSE 245, TOT PROTEIN 6.2, ALBUMIN 2.1. FINAL URINE CULTURE REPORTS ECOLI, WHICH IS SENSITIVE TO FORTAZ. FINAL SPUTUM CULTURE REPORTS STRETOCOCCUS PNEUMONIAE, WHICH IS SENSITIVE TO LEVAQUIN. PRELIMINARY BLOOD CULTURES ARE NEGATIVE. WE WILL START ALBUMIN IV, OBTAIN AN ECHO, START MAGIC MOUTHWASH, HEPLOCK IV FLUIDS , CONTINUE IV ANTIBIOTICS AND DUONEBS, CONTINUE TO MONITOR, AND FOLLOW UP IN AM WITH LABS, CHEST XRAY, AND ABG. - Past Medical Family Social History Past Med/Fam/Surg Hx: No changes since H&P Allergies: Allergies Ceftriaxone [From Rocephin] Allergy (Intermediate, Verified 08/17/13 10:12) Dexamethasone [From Decadron] Allergy (Intermediate, Verified 08/17/13 10:12) Penicillins Allergy (Intermediate, Verified 08/17/13 09:44) Sulfa Drugs Allergy (Intermediate, Verified 08/17/13 10:12) Sulfamethoxazole w/Trimethoprim [From Bactrim] Allergy (Intermediate, Verified 08/17/13 10:12) - Review of Systems ROS: No change since H&P - Vital Signs and I&O's Vital Signs: Temperature 98.4 F Pulse Rate [Left Brachial] 84 Pulse Rate [Right Brachial] 90 Pulse Rate 106 Respiratory Rate 24 Blood Pressure [Left Arm] 123/66 O2 Sat by Pulse Oximetry 96 Intake and Output: Intake & Output 04/0902/02/17 02/03/17 02/04/17 11:59 11:59 11:59 11:59 Intake Total 1320 Balance 1320 - Physical Exam Oriented: Normal, Time, Person, Place Eyes: Normal. negative: Blurred Vision, Diplopia, Discharge, Pain, Redness, Photophobia Ear: Normal. negative: Swelling, Ecchymosis, Hemotypanum, Abrasion, Laceration Nose: Discharge. negative: Injected, Blood Throat: Red, Dry. negative: Tonsillar Hypertrophy, Exudate Respiratory: Generalized, Wheezes, Rhonchi Cardiovascular: Irregular (Irreg, irreg). negative: Murmur, Edema : Hematuria, Frequency, Discharge. negative: Bleeding, Auscultation: Bowel Sounds: Normal. negative: Bruit Palpation: Normal. negative: Spleen Enlarged, Liver Enlarged, Mass Pulsatile Tenderness: Normal. negative: Rebound, Guarding, Rigidity Skin: Normal. negative: Diaphoresis, Wound, Bruising, Ecchymosis Musculoskeletal: Instability Psychiatric: Normal Mood Description: Calm, Appropriate Affect: Normal Speech Pattern: Clear, Appropriate - Laboratory and Diagnostics Result Diagrams: 02/03/17 04:25 02/03/17 04:25 Labs: Laboratory WBC 5.0 X10^3/uL (3.6-10.0) 02/03/17 04:25 RBC 3.67 X10^6/uL (3.5-5.4) 02/03/17 04:25 Hgb 10.7 g/dL (12.0-16.0) L 02/03/17 04:25 Hct 32.6 % (36.0-47.0) L 02/03/17 04:25 MCV 88.9 fL (80.0-100.0) 02/03/17 04:25 MCH 29.0 pg (27.0-34.0) 02/03/17 04:25 MCHC 32.7 g/dL (33.0-35.0) L 02/03/17 04:25 RDW 13.2 % (11.6-16.5) 02/03/17 04:25 Plt Count 310 X10^3/uL (150.0-450.0) 02/03/17 04:25 MPV 7.1 fL (7.4-11.0) L 02/03/17 04:25 Neut % 87.6 % (42.0-75.0) H 02/03/17 04:25 Lymph % 6.3 % (21.0-51.0) L 02/03/17 04:25 [place] % 5.8 % (0.0-13.0) 02/03/17 04:25 Eos % 0.0 % (0.9-2.9) L 02/03/17 04:25 Baso % 0.3 % (0.2-1.0) 02/03/17 04:25 Neut # 4.4 x10^3/uL (2.2-4.8) 02/03/17 04:25 Lymph # 0.3 X10^3/uL (1.3-2.9) L 02/03/17 04:25 [place] # 0.3 x10^3/uL (0.3-0.8) 02/03/17 04:25 Eos # 0.0 x10^3/uL (0.0-0.2) 02/03/17 04:25 Baso # 0.0 X10^3/uL (0.0-0.1) 02/03/17 04:25 Absolute Nucleated RBC 0.2 /100WBC 02/03/17 04:25 INR Target Range - 01/31/17 13:55 INR 1.00 (0.8-1.3) 01/31/17 13:55 PTT 22.8 SECONDS (22.9-36.5) L 01/31/17 13:55 PTT Comment - 01/31/17 13:55 Sample Site [place] 02/03/17 05:47 ABG pH 7.450 (7.35-7.45) 02/03/17 05:47 ABG pCO2 74.0 mmHg (35.0-45.0) H* 02/03/17 05:47 ABG pO2 96.0 mmHg (80.0-100.0) 02/03/17 05:47 ABG HCO3 51.4 mmol/L (22-26) H* 02/03/17 05:47 ABG O2 Saturation 98.0 % (90-100) 02/03/17 05:47 ABG Base Excess 23.0 mmol/L (-2.0-2.0) H 02/03/17 05:47 [place] Test Pos 02/03/17 05:47 A-a Gradient 61.0 mmHg 02/03/17 05:47 FiO2 35.000 02/03/17 05:47 Blood Gas Comments Julio abg well 02/03/17 05:47 Sodium 142 mmol/L (136-145) 02/03/17 04:25 Corrected Sodium 145 mmol/L (136-145) 02/03/17 04:25 Potassium 4.5 mmol/L (3.5-5.1) 02/03/17 04:25 Chloride 100 mmol/L (98-107) 02/03/17 04:25 Carbon Dioxide 42.7 mmol/L (21-32) H* 02/03/17 04:25 BUN 32 mg/dL (7-18) H 02/03/17 04:25 Creatinine 1.15 mg/dL (0.55-1.02) H 02/03/17 04:25 Est GFR (MDRD) Af Amer > 60 (>60) 02/03/17 04:25 Est GFR (MDRD) Non-Af 51 (>60) L 02/03/17 04:25 Glucose 245 mg/dL (65-99) H 02/03/17 04:25 Calcium 8.5 mg/dL (8.5-10.1) 02/03/17 04:25 Corrected Calcium 10.0 mg/dL (8.5-10.1) 02/03/17 04:25 Magnesium 2.0 mg/dL (1.7-2.9) 01/31/17 13:55 Total Bilirubin 0.30 mg/dL (0.2-1.0) 02/03/17 04:25 AST 28 Units/L (15-37) 02/03/17 04:25 ALT 27 Units/L (12-78) 02/03/17 04:25 Alkaline Phosphatase 57 Units/L (46-116) 02/03/17 04:25 Creatine Kinase 41 Units/L (26-192) 01/31/17 13:55 CK-MB (CK-2) 1.2 ng/mL (0-4.0) 01/31/17 13:55 CK/CKMB % Calc 2.9 % (<4) 01/31/17 13:55 Troponin I 0.03 ng/mL (0-1.5) 01/31/17 13:55 Total Protein 6.2 g/dL (6.4-8.2) L 02/03/17 04:25 Albumin 2.1 g/dL (3.4-5.0) L 02/03/17 04:25 Globulin 4.1 g/dL (2.5-4.5) 02/03/17 04:25 Albumin/Globulin Ratio 0.5 Ratio (1.1-2.1) L 02/03/17 04:25 Specimen Type Clean catch urine 02/01/17 05:35 Urine Color Yellow (YELLOW) 02/01/17 05:35 Urine Appearance Cloudy (CLEAR) 02/01/17 05:35 Urine pH 6.0 (5.0 - 8.0) 02/01/17 05:35 Ur Specific [place] 1.010 (1.000-1.030) 02/01/17 05:35 Urine Protein 4+ (NEGATIVE) 02/01/17 05:35 Urine Glucose (UA) 2+ (NEGATIVE) 02/01/17 05:35 Urine Ketones Negative (NEGATIVE) 02/01/17 05:35 Urine Occult Blood 3+ (NEGATIVE) 02/01/17 05:35 Urine Nitrite Positive (NEGATIVE) 02/01/17 05:35 Urine Bilirubin Negative (NEGATIVE) 02/01/17 05:35 Urine Urobilinogen Normal (NORMAL) 02/01/17 05:35 Ur Leukocyte Esterase 2+ (NEGATIVE) 02/01/17 05:35 Urine RBC 0-3 /HPF (NEGATIVE) 02/01/17 05:35 Urine WBC 10-20 /HPF (NEGATIVE) 02/01/17 05:35 Ur Squamous Epith Cells Moderate /HPF (NEGATIVE) 02/01/17 05:35 Amorphous Sediment Trace /HPF (NEGATIVE) 02/01/17 05:35 Urine Bacteria 3+ /HPF (NEGATIVE) 02/01/17 05:35 Hyaline Casts Rare /LPF (NEGATIVE) 02/01/17 05:35 Ur Culture Indicated? Yes/culture set up 02/01/17 05:35 - Plan (1) COPD (chronic obstructive pulmonary disease) Status: Acute Qualifiers: COPD type: COPD with acute exacerbation Chronic bronchitis type: C Emphysema type: E Qualified Code(s): J44.1 - Chronic obstructive pulmonary disease with (acute) exacerbation Plan: CONTINUE SOLUMEDROL, DUONEBS, BIPAP, IV LEVAQUIN, FORTAZ, SUPPLEMENTAL OXYGEN, ROBITUSSIN, MONITOR LABS AND CHEST XRAY. (2) Hypoalbuminemia Status: Acute Plan: START ALBUMIN IV, MONITOR LABS. (3) Streptococcus pneumoniae infection Status: Acute Plan: CONTINUE IV LEVAQUIN, MONITOR CHEST XRAY. (4) E-coli UTI Status: Acute Plan: CONTINUE FORTAZ, MONITOR. (5) Respiratory distress Status: Acute Plan: ABOVE. (6) Hypercapnemia Status: Acute Plan: ABOVE. (7) Bronchitis Status: Acute Plan: ABOVE. (8) Anxiety Status: Acute Plan: CONTINUE ATIVAN, MONITOR. (9) Generalized pain Status: Acute Plan: CONTINUE PERCOCET, MONITOR. (10) Diabetes mellitus Status: Acute Qualifiers: Diabetes mellitus type: type 2 Diabetes mellitus complication status: with hyperglycemia Diabetes mellitus complication detail: D Diabetic retinopathy severity: D Proliferative retinopathy type: P Diabetes mellitus macular edema: D Diabetes mellitus long term care phlebotomist insulin use: with long term care phlebotomist use Laterality: L Chronic kidney disease stage: C Qualified Code(s): E11.65 - Type 2 diabetes mellitus with hyperglycemia; Z79.4 - [facility] (current) use of insulin
[2017-02-03] MEDS: LIPITOR TAB 10 MG PO SCH (21:56)
[2017-02-03] MEDS: NEURONTIN CAP 100 MG PO SCH (21:56)
[2017-02-03] MEDS: UNIPHYL TAB 400 MG PO SCH (21:57)
[2017-02-03] MEDS: AMBIEN PO SCH (21:57)
[2017-02-03] MEDS: SNACK - Diabetic Appropriate PO SCH (21:59)
[2017-02-04] MEDS: ZANAFLEX PO SCH ×4 (01:52→21:43)
[2017-02-04 05:20] LABS: BASOPHILS % (AUTO) 0.1 % (0.2-1.0); HEMATOCRIT 31.6 % (36.0-47.0); HEMOGLOBIN 10.5 g/dL (12.0-16.0); LYMPHOCYTES # (AUTO) 0.4 X10^3/uL (1.3-2.9); LYMPHOCYTES % (AUTO) 8.5 % (21.0-51.0); MEAN CORPUSCULAR HEMOGLOBIN 29.1 pg (27.0-34.0); MEAN CORPUSCULAR HGB CONC 33.1 g/dL (33.0-35.0); MEAN CORPUSCULAR VOLUME 87.9 fL (80.0-100.0); MEAN PLATELET VOLUME 7.2 fL (7.4-11.0); MONOCYTES # (AUTO) 0.4 x10^3/uL (0.3-0.8); MONOCYTES % (AUTO) 8.8 % (0.0-13.0); NEUTROPHILS % (AUTO) 82.6 % (42.0-75.0); PLATELET COUNT 283 X10^3/uL (150.0-450.0); RED CELL DISTRIBUTION WIDTH 13.2 % (11.6-16.5); WHITE BLOOD COUNT 4.9 X10^3/uL (3.6-10.0)
[2017-02-04] MEDS: PHENERGAN INJ 25 MG IV PRN ×2 (05:28→21:44)
[2017-02-04] MEDS: SOLU-MEDROL 125 MG VIAL IVP SCH ×3 (05:28→21:38)
[2017-02-04] MEDS: PERCOCET TAB 5/325 MG PO PRN ×3 (05:29→19:59)
[2017-02-04 05:36] LABS: ALANINE AMINOTRANSFERASE 28 Units/L (12-78); ALBUMIN 2.5 g/dL (3.4-5.0); ALKALINE PHOSPHATASE 50 Units/L (46-116); ASPARTATE AMINO TRANSFERASE 30 Units/L (15-37); BLOOD UREA NITROGEN 27 mg/dL (7-18); CALCIUM 8.5 mg/dL (8.5-10.1); CHLORIDE 97 mmol/L (98-107); COR CA(FOR HYPOALB) 9.7 mg/dL (8.5-10.1); COR NA(FOR HYPERGLY) 142 mmol/L (136-145); CREATININE 1.09 mg/dL (0.55-1.02); GLUCOSE 182 mg/dL (65-99); SODIUM 140 mmol/L (136-145); TOTAL PROTEIN 6.2 g/dL (6.4-8.2); eGFR BLACK RACES > 60 (>60); eGFR NON BLACK RACES 54 (>60)
[2017-02-04 05:38] LABS: CARBON DIOXIDE 43.2 mmol/L (21-32)
[2017-02-04] MEDS: FORTAZ or TAZICEF INJ 2 GM in NS 50 ML IV 50 ML IV SCH ×3 (06:15→22:00)
--- NOTE | 2017-02-04 06:53 | RAD ---
HISTORY: Respiratory distress Study: Chest two-view Comparison: February 03, 2017 Findings: The heart is within normal limits in size. The [place] are normal. The lungs are hyperinflated but free of acute alveolar infiltrates. No pleural effusions are identified. The bony thorax is unremarkable . IMPRESSION: Lungs hyperinflated but clear Reported By:
[2017-02-04] MEDS: ALBUMIN HUMAN 25%- 100ML 100 ML IV SCH (08:51)
[2017-02-04] MEDS: LANTUS SC SCH (08:53)
[2017-02-04] MEDS: LEVAQUIN PREMIX IV 500 MG 500 MG/100 ML BAG IV SCH (08:53)
[2017-02-04] MEDS: ASPIRIN EC 81 MG PO SCH (09:00)
[2017-02-04] MEDS: CALAN SR 240 MG PO SCH (09:00)
[2017-02-04] MEDS: PREVACID PO SCH (09:00)
[2017-02-04] MEDS: TOPROL XL PO SCH ×2 (09:00→21:39)
[2017-02-04] MEDS: SINGULAIR TAB 10 MG PO SCH (09:00)
[2017-02-04] MEDS: NYSTATIN POWDER TOP SCH ×2 (09:01→21:46)
[2017-02-04] MEDS: MAGIC MOUTHWASH MT SCH ×5 (09:06→21:47)
[2017-02-04] MEDS: PATIENT'S HOME MEDICATION PO SCH ×2 (09:06→13:33)
[2017-02-04] MEDS: LOVENOX INJ 30 MG SYR SC SCH ×2 (09:07→21:44)
[2017-02-04] MEDS: ATIVAN TAB 0.5 MG PO PRN ×2 (09:23→21:38)
[2017-02-04 09:33] LABS: ABG BASE EXCESS 23.7 mmol/L (-2.0-2.0)
[2017-02-04 09:34] LABS: ABG ALLEN TEST POS; ABG HCO3 51.7 mmol/L (22-26)
[2017-02-04] MEDS: DUONEB 0.5 MG/3 MG NEB SCH ×5 (09:49→20:25)
[2017-02-04] MEDS ORDERED: NS 500 ML IV 500 ML IV ONE (14:47)
[2017-02-04 14:48] LABS: BILIRUBIN,URINE NEGATIVE (NEGATIVE); BLOOD/HEMOGLOBIN,URINE 3+ (NEGATIVE); GLUCOSE, URINE NEGATIVE (NEGATIVE); KETONES,URINE NEGATIVE (NEGATIVE); LEUKOCYTE ESTERASE ,URINE NEGATIVE (NEGATIVE); NITRITES,URINE NEGATIVE (NEGATIVE); PROTEIN,URINE 3+ (NEGATIVE); UROBILINOGEN,URINE NORMAL (NORMAL)
[2017-02-04 15:17] LABS: APPEARANCE,URINE HAZY (CLEAR); BACTERIA,URINE TRACE /HPF (NEGATIVE); COLOR,URINE YELLOW (YELLOW); RBC,URINE 0-3 /HPF (NEGATIVE); SQUAMOUS EPITHELIAL CELL,UR FEW /HPF (NEGATIVE)
[2017-02-04 15:18] LABS: GRANULAR CASTS,URINE FEW /LPF (NEGATIVE); YEAST,URINE MODERATE /HPF (NEGATIVE)
[2017-02-04] MEDS: ROBITUSSIN DM PO PRN (19:59)
[2017-02-04] MEDS: AMBIEN PO SCH (21:38)
[2017-02-04] MEDS: UNIPHYL TAB 400 MG PO SCH (21:38)
[2017-02-04] MEDS: LIPITOR TAB 10 MG PO SCH (21:39)
[2017-02-04] MEDS: NEURONTIN CAP 100 MG PO SCH (21:39)
[2017-02-04] MEDS: SNACK - Diabetic Appropriate PO SCH (21:46)
[2017-02-05] MEDS: PERCOCET TAB 5/325 MG PO PRN ×5 (03:25→22:20)
[2017-02-05] MEDS: PHENERGAN INJ 25 MG IV PRN (03:57)
[2017-02-05 05:09] LABS: BASOPHILS % (AUTO) 0.1 % (0.2-1.0); HEMATOCRIT 33.5 % (36.0-47.0); HEMOGLOBIN 10.7 g/dL (12.0-16.0); LYMPHOCYTES # (AUTO) 0.4 X10^3/uL (1.3-2.9); LYMPHOCYTES % (AUTO) 6.4 % (21.0-51.0); MEAN CORPUSCULAR HEMOGLOBIN 28.3 pg (27.0-34.0); MEAN CORPUSCULAR HGB CONC 31.9 g/dL (33.0-35.0); MEAN CORPUSCULAR VOLUME 88.8 fL (80.0-100.0); MEAN PLATELET VOLUME 7.1 fL (7.4-11.0); MONOCYTES # (AUTO) 0.4 x10^3/uL (0.3-0.8); MONOCYTES % (AUTO) 5.7 % (0.0-13.0); NEUTROPHILS # (AUTO) 5.7 x10^3/uL (2.2-4.8); NEUTROPHILS % (AUTO) 87.8 % (42.0-75.0); PLATELET COUNT 300 X10^3/uL (150.0-450.0); RED BLOOD COUNT 3.77 X10^6/uL (3.5-5.4); RED CELL DISTRIBUTION WIDTH 13.3 % (11.6-16.5); WHITE BLOOD COUNT 6.6 X10^3/uL (3.6-10.0)
[2017-02-05 05:28] LABS: ABG BASE EXCESS 24.7 mmol/L (-2.0-2.0)
[2017-02-05 05:30] LABS: ABG ALLEN TEST POS; ABG HCO3 52.2 mmol/L (22-26)
[2017-02-05 05:57] LABS: ALANINE AMINOTRANSFERASE 30 Units/L (12-78); ALBUMIN 2.8 g/dL (3.4-5.0); ALKALINE PHOSPHATASE 43 Units/L (46-116); ASPARTATE AMINO TRANSFERASE 35 Units/L (15-37); BLOOD UREA NITROGEN 23 mg/dL (7-18); CALCIUM 8.7 mg/dL (8.5-10.1); CHLORIDE 100 mmol/L (98-107); COR CA(FOR HYPOALB) 9.7 mg/dL (8.5-10.1); COR NA(FOR HYPERGLY) 143 mmol/L (136-145); CREATININE 0.94 mg/dL (0.55-1.02); GLUCOSE 112 mg/dL (65-99); SODIUM 143 mmol/L (136-145); TOTAL PROTEIN 6.1 g/dL (6.4-8.2); eGFR BLACK RACES > 60 (>60); eGFR NON BLACK RACES > 60 (>60)
[2017-02-05 06:04] LABS: CARBON DIOXIDE 41.1 mmol/L (21-32)
[2017-02-05 06:15] LABS: PLATELET MORPHOLOGY COMMENT NORMAL (NORMAL)
[2017-02-05] MEDS: SOLU-MEDROL 125 MG VIAL IVP SCH ×3 (06:31→22:17)
[2017-02-05] MEDS: FORTAZ or TAZICEF INJ 2 GM in NS 50 ML IV 50 ML IV SCH ×3 (06:32→22:16)
--- NOTE | 2017-02-05 08:08 | RAD ---
HISTORY: Shortness of breath Study: Single view chest Comparison: 02/04/2017 Findings: Single portable view is limited by patient body habitus. The lungs are clear without consolidation, effusion or pneumothorax. The cardiac and mediastinal contours are within normal limits. There are chronic degenerative changes of the bony thorax. There is soft tissue attenuation at the lung bases. IMPRESSION: 1. Negative portable chest radiograph. Reported By:
[2017-02-05] MEDS: DUONEB 0.5 MG/3 MG NEB SCH ×4 (08:58→21:10)
[2017-02-05] MEDS: LOVENOX INJ 30 MG SYR SC SCH ×2 (10:23→22:19)
[2017-02-05] MEDS ORDERED: UNIPHYL TAB 400 MG PO SCH (10:23)
[2017-02-05] MEDS: TOPROL XL PO SCH ×2 (10:25→22:20)
[2017-02-05] MEDS: CALAN SR 240 MG PO SCH (10:25)
[2017-02-05] MEDS: ZANAFLEX PO SCH ×2 (10:25→22:21)
[2017-02-05] MEDS: LEVAQUIN PREMIX IV 500 MG 500 MG/100 ML BAG IV SCH (10:26)
[2017-02-05] MEDS: SINGULAIR TAB 10 MG PO SCH (10:26)
[2017-02-05] MEDS: PREVACID PO SCH (10:26)
[2017-02-05] MEDS: ASPIRIN EC 81 MG PO SCH (10:26)
[2017-02-05] MEDS: ALBUMIN HUMAN 25%- 100ML 100 ML IV SCH (10:27)
[2017-02-05] MEDS: NYSTATIN POWDER TOP SCH ×2 (10:28→22:21)
[2017-02-05] MEDS: MAGIC MOUTHWASH MT SCH ×4 (10:28→22:21)
[2017-02-05] MEDS: PATIENT'S HOME MEDICATION PO SCH ×2 (10:35→16:54)
[2017-02-05] MEDS: LANTUS SC SCH (10:42)
[2017-02-05] MEDS: ATIVAN TAB 0.5 MG PO SCH ×2 (13:46→22:20)
--- NOTE | 2017-02-05 14:21 | PCM.PROG ---
Progress Note - Progress Note for Day of Date: 02/04/17 - Subjective Subjective: PATIENT CONTINUES ON BIPAP THIS MORNING. SHE REPORTS SEVERE SHORTNESS OF BREATH AND FATIGUE WITH EXERTION. SHE CONTINUES TO BE UNABLE TO LIE FLAT IN BED DUE TO SHORTNESS OF BREATH. ECHO WAS ATTEMPTED YESTERDAY; HOWEVER, PATIENT WAS UNABLE TO LIE FLAT FOR TEST. DAUGHTER AT BEDSIDE. ABG ABNORMALS: PH 7.470, PCO2 71.0, HCO3 51.7, FIO2 35.0. PCO2 CONTINUES TO IMPROVE. ON AUSCULTATION, LUNGS CONTINUE WITH BILATERAL WHEEZING AND RHONCHI. COUGH IS MOIST, PRODUCTIVE. CBC WNLE EXCEPT: H/H 10.5/31.6. CMP WNL EXCEPT: CARBON DIOXIDE 43.2, BUN/CREAT 27/1.09, GFR 54, GLUCOSE 182, TOT PROTEIN 6.2, ALBUMIN 2.5. PATIENT CONTINUES ON IV FORTAZ FOR ECOLI UTI AND IV LEVAQUIN FOR POSITIVE SPUTUM CULTURE OF STRETOCOCCUS PNEUMONIAE. WE WILL CONTINUE DUONEBS, SUPPLEMENTAL OXGYEN, IV ANTIBIOTICS, AND FOLLOW UP IN AM WITH LABS, CHEST XRAY, AND ABG. - Past Medical Family Social History Past Med/Fam/Surg Hx: No changes since H&P Allergies: Allergies Ceftriaxone [From Rocephin] Allergy (Intermediate, Verified 08/17/13 10:12) Dexamethasone [From Decadron] Allergy (Intermediate, Verified 08/17/13 10:12) Penicillins Allergy (Intermediate, Verified 08/17/13 09:44) Sulfa Drugs Allergy (Intermediate, Verified 08/17/13 10:12) Sulfamethoxazole w/Trimethoprim [From Bactrim] Allergy (Intermediate, Verified 08/17/13 10:12) - Review of Systems ROS: No change since H&P - Vital Signs and I&O's Vital Signs: Temperature 98.5 F Pulse Rate [Left Brachial] 112 Pulse Rate [Right Brachial] 95 Pulse Rate 99 Respiratory Rate 20 Blood Pressure [Left Calf] 156/87 Blood Pressure [Right Calf] 153/77 Blood Pressure [Left Arm] 158/88 Blood Pressure [Right Arm] 156/70 O2 Sat by Pulse Oximetry 90 Intake and Output: Intake & Output 02/03/17 02/04/17 02/05/17 02/06/17 11:59 11:59 11:59 11:59 Intake Total 1320 1826 1250 Output Total 1400 Balance 1320 1826 -150 - Physical Exam Oriented: Normal, Time, Person, Place Eyes: Normal. negative: Blurred Vision, Diplopia, Discharge, Pain, Redness, Photophobia Ear: Normal. negative: Swelling, Ecchymosis, Hemotypanum, Abrasion, Laceration Nose: Discharge. negative: Injected, Blood Throat: Red, Dry. negative: Tonsillar Hypertrophy, Exudate Respiratory: Generalized, Wheezes, Rhonchi Cardiovascular: Irregular (Irreg, irreg). negative: Murmur, Edema : Hematuria, Frequency, Discharge. negative: Bleeding, Auscultation: Bowel Sounds: Normal. negative: Bruit Palpation: Normal. negative: Spleen Enlarged, Liver Enlarged, Mass Pulsatile Tenderness: Normal. negative: Rebound, Guarding, Rigidity Skin: Normal. negative: Diaphoresis, Wound, Bruising, Ecchymosis Musculoskeletal: Instability Psychiatric: Normal Mood Description: Calm, Appropriate Affect: Normal Speech Pattern: Clear, Appropriate - Laboratory and Diagnostics Result Diagrams: 02/05/17 04:15 02/05/17 04:15 Labs: Laboratory WBC 6.6 X10^3/uL (3.6-10.0) 02/05/17 04:15 RBC 3.77 X10^6/uL (3.5-5.4) 02/05/17 04:15 Hgb 10.7 g/dL (12.0-16.0) L 02/05/17 04:15 Hct 33.5 % (36.0-47.0) L 02/05/17 04:15 MCV 88.8 fL (80.0-100.0) 02/05/17 04:15 MCH 28.3 pg (27.0-34.0) 02/05/17 04:15 MCHC 31.9 g/dL (33.0-35.0) L 02/05/17 04:15 RDW 13.3 % (11.6-16.5) 02/05/17 04:15 Plt Count 300 X10^3/uL (150.0-450.0) 02/05/17 04:15 Plt Count Comment Adequate (ADEQUATE) 02/05/17 04:15 MPV 7.1 fL (7.4-11.0) L 02/05/17 04:15 Neut % 87.8 % (42.0-75.0) H 02/05/17 04:15 Lymph % 6.4 % (21.0-51.0) L 02/05/17 04:15 [place] % 5.7 % (0.0-13.0) 02/05/17 04:15 Eos % 0.0 % (0.9-2.9) L 02/05/17 04:15 Baso % 0.1 % (0.2-1.0) L 02/05/17 04:15 Neut # 5.7 x10^3/uL (2.2-4.8) H 02/05/17 04:15 Lymph # 0.4 X10^3/uL (1.3-2.9) L 02/05/17 04:15 [place] # 0.4 x10^3/uL (0.3-0.8) 02/05/17 04:15 Eos # 0.0 x10^3/uL (0.0-0.2) 02/05/17 04:15 Baso # 0.0 X10^3/uL (0.0-0.1) 02/05/17 04:15 Absolute Nucleated RBC 0.1 /100WBC 02/05/17 04:15 Total Counted 100 02/05/17 04:15 Neutrophils % (Manual) 88 % (39-76) H 02/05/17 04:15 Lymphocytes % (Manual) 9 % (13-43) L 02/05/17 04:15 Monocytes % (Manual) 3 % (4-9) L 02/05/17 04:15 Plt Morphology Comment Normal (NORMAL) 02/05/17 04:15 RBC Morphology Normal (NORMAL) 02/05/17 04:15 INR Target Range - 01/31/17 13:55 INR 1.00 (0.8-1.3) 01/31/17 13:55 PTT 22.8 SECONDS (22.9-36.5) L 01/31/17 13:55 PTT Comment - 01/31/17 13:55 Sample Site Lr 02/05/17 05:23 ABG pH 7.500 (7.35-7.45) H 02/05/17 05:23 ABG pCO2 67.0 mmHg (35.0-45.0) H* 02/05/17 05:23 ABG pO2 75.0 mmHg (80.0-100.0) L 02/05/17 05:23 ABG HCO3 52.2 mmol/L (22-26) H* 02/05/17 05:23 ABG O2 Saturation 96.0 % (90-100) 02/05/17 05:23 ABG Base Excess 24.7 mmol/L (-2.0-2.0) H 02/05/17 05:23 [place] Test Pos 02/05/17 05:23 A-a Gradient 98.0 mmHg 02/05/17 05:23 FiO2 36.000 02/05/17 05:23 Blood Gas Comments Julio well ae 02/05/17 05:23 Sodium 143 mmol/L (136-145) 02/05/17 04:15 Corrected Sodium 143 mmol/L (136-145) 02/05/17 04:15 Potassium 4.0 mmol/L (3.5-5.1) 02/05/17 04:15 Chloride 100 mmol/L (98-107) 02/05/17 04:15 Carbon Dioxide 41.1 mmol/L (21-32) H* 02/05/17 04:15 BUN 23 mg/dL (7-18) H 02/05/17 04:15 Creatinine 0.94 mg/dL (0.55-1.02) 02/05/17 04:15 Est GFR (MDRD) Af Amer > 60 (>60) 02/05/17 04:15 Est GFR (MDRD) Non-Af > 60 (>60) 02/05/17 04:15 Glucose 112 mg/dL (65-99) H 02/05/17 04:15 Calcium 8.7 mg/dL (8.5-10.1) 02/05/17 04:15 Corrected Calcium 9.7 mg/dL (8.5-10.1) 02/05/17 04:15 Magnesium 2.0 mg/dL (1.7-2.9) 01/31/17 13:55 Total Bilirubin 0.40 mg/dL (0.2-1.0) 02/05/17 04:15 AST 35 Units/L (15-37) 02/05/17 04:15 ALT 30 Units/L (12-78) 02/05/17 04:15 Alkaline Phosphatase 43 Units/L (46-116) L 02/05/17 04:15 Creatine Kinase 41 Units/L (26-192) 01/31/17 13:55 CK-MB (CK-2) 1.2 ng/mL (0-4.0) 01/31/17 13:55 CK/CKMB % Calc 2.9 % (<4) 01/31/17 13:55 Troponin I 0.03 ng/mL (0-1.5) 01/31/17 13:55 Total Protein 6.1 g/dL (6.4-8.2) L 02/05/17 04:15 Albumin 2.8 g/dL (3.4-5.0) L 02/05/17 04:15 Globulin 3.3 g/dL (2.5-4.5) 02/05/17 04:15 Albumin/Globulin Ratio 0.8 Ratio (1.1-2.1) L 02/05/17 04:15 Specimen Type Clean catch urine 02/04/17 14:35 Urine Color Yellow (YELLOW) 02/04/17 14:35 Urine Appearance Hazy (CLEAR) 02/04/17 14:35 Urine pH 7.0 (5.0 - 8.0) 02/04/17 14:35 Ur Specific [place] 1.010 (1.000-1.030) 02/04/17 14:35 Urine Protein 3+ (NEGATIVE) 02/04/17 14:35 Urine Glucose (UA) Negative (NEGATIVE) 02/04/17 14:35 Urine Ketones Negative (NEGATIVE) 02/04/17 14:35 Urine Occult Blood 3+ (NEGATIVE) 02/04/17 14:35 Urine Nitrite Negative (NEGATIVE) 02/04/17 14:35 Urine Bilirubin Negative (NEGATIVE) 02/04/17 14:35 Urine Urobilinogen Normal (NORMAL) 02/04/17 14:35 Ur Leukocyte Esterase Negative (NEGATIVE) 02/04/17 14:35 Urine RBC 0-3 /HPF (NEGATIVE) 02/04/17 14:35 Urine WBC 0-3 /HPF (NEGATIVE) 02/04/17 14:35 Ur Squamous Epith Cells Few /HPF (NEGATIVE) 02/04/17 14:35 Amorphous Sediment Trace /HPF (NEGATIVE) 02/01/17 05:35 Urine Bacteria Trace /HPF (NEGATIVE) 02/04/17 14:35 Hyaline Casts Rare /LPF (NEGATIVE) 02/01/17 05:35 Granular Casts Few /LPF (NEGATIVE) 02/04/17 14:35 Urine Yeast Moderate /HPF (NEGATIVE) 02/04/17 14:35 Ur Culture Indicated? No/not indicated 02/04/17 14:35 - Plan (1) COPD (chronic obstructive pulmonary disease) Status: Acute Qualifiers: COPD type: COPD with acute exacerbation Chronic bronchitis type: C Emphysema type: E Qualified Code(s): J44.1 - Chronic obstructive pulmonary disease with (acute) exacerbation Plan: CONTINUE SOLUMEDROL, DUONEBS, BIPAP, IV LEVAQUIN, FORTAZ, SUPPLEMENTAL OXYGEN, ROBITUSSIN, MONITOR LABS AND CHEST XRAY. (2) Hypoalbuminemia Status: Acute Plan: CONTINUE ALBUMIN IV, MONITOR LABS. (3) Streptococcus pneumoniae infection Status: Acute Plan: CONTINUE IV LEVAQUIN, MONITOR CHEST XRAY. (4) E-coli UTI Status: Acute Plan: CONTINUE FORTAZ, MONITOR. (5) Respiratory distress Status: Acute Plan: ABOVE. (6) Hypercapnemia Status: Acute Plan: ABOVE. (7) Anxiety Status: Chronic Plan: CONTINUE ATIVAN, MONITOR. (8) Generalized pain Status: Chronic Plan: CONTINUE PERCOCET, MONITOR. (9) Diabetes mellitus Status: Chronic Qualifiers: Diabetes mellitus type: type 2 Diabetes mellitus complication status: with hyperglycemia Diabetes mellitus complication detail: D Diabetic retinopathy severity: D Proliferative retinopathy type: P Diabetes mellitus macular edema: D Diabetes mellitus detention insulin use: with feed project engineer use Laterality: L Chronic kidney disease stage: C Qualified Code(s): E11.65 - Type 2 diabetes mellitus with hyperglycemia; Z79.4 - MCFP (current) use of insulin
--- NOTE | 2017-02-05 14:31 | PCM.PROG ---
Progress Note - Progress Note for Day of Date: 02/05/17 - Subjective Subjective: PATIENT IS ON NASAL CANNULA THIS MORNING AT 4 LITERS. SHE IS NOTED WITH LABORED RESPIRATIONS WITH ACCESSORY MUSCLE USE. PATIENT REPORTS SHE IS HAVING DIFFICULTY BREATHING WITH NASAL CANNULA. REPSIRATORY IS PAGED TO PLACE PATIENT BACK ON BIPAP. PATIENT IS NOTED WITH SOME ANXIETY. AN ABG WAS OBTAINED THIS MORNING WHILE ON NASAL CANNULA AND IT ABNORMALS ARE: PH 7.500, PCO2 67.0, PO2 75.0, HCO3 52.2, FIO2 36.0. SHE CONTINUES TO BE UNABLE TO LIE FLAT IN BED DUE TO SHORTNESS OF BREATH. DAUGHTER AT BEDSIDE. ON AUSCULTATION, LUNGS CONTINUE WITH WHEEZING NOTED THROUGHOUT. COUGH CONTINUES TO BE MOIST, PRODUCTIVE. CBC WNL EXCEPT: H/H 10.7/33.5. CMP WNL EXCEPT: CARBON DIOXIDE 41.1 , BUN 23, GLUCOSE 112, TOT PROTEIN 6.1, ALBUMIN 2.8. CHEST XRAY IS NORMAL. PATIENT CONTINUES ON IV FORTAZ FOR ECOLI UTI AND IV LEVAQUIN FOR POSITIVE SPUTUM CULTURE OF STRETOCOCCUS PNEUMONIAE. WE WILL CHANGE THEODUR TO DAILY, AND SCHEDULE ATIVAN ATC TID. WE WILL CONTINUE DUONEBS, SUPPLEMENTAL OXGYEN, IV ANTIBIOTICS, AND FOLLOW UP IN AM WITH LABS, CHEST XRAY, AND ABG. - Past Medical Family Social History Past Med/Fam/Surg Hx: No changes since H&P Allergies: Allergies Ceftriaxone [From Rocephin] Allergy (Intermediate, Verified 08/17/13 10:12) Dexamethasone [From Decadron] Allergy (Intermediate, Verified 08/17/13 10:12) Penicillins Allergy (Intermediate, Verified 08/17/13 09:44) Sulfa Drugs Allergy (Intermediate, Verified 08/17/13 10:12) Sulfamethoxazole w/Trimethoprim [From Bactrim] Allergy (Intermediate, Verified 08/17/13 10:12) - Review of Systems ROS: No change since H&P - Vital Signs and I&O's Vital Signs: Temperature 98.5 F Pulse Rate [Left Brachial] 112 Pulse Rate [Right Brachial] 95 Pulse Rate 99 Respiratory Rate 20 Blood Pressure [Left Calf] 156/87 Blood Pressure [Right Calf] 153/77 Blood Pressure [Left Arm] 158/88 Blood Pressure [Right Arm] 156/70 O2 Sat by Pulse Oximetry 90 Intake and Output: Intake & Output 02/03/17 02/04/17 02/05/17 02/06/17 11:59 11:59 11:59 11:59 Intake Total 1320 1826 1250 Output Total 1400 Balance 1320 1826 -150 - Physical Exam Oriented: Normal, Time, Person, Place Eyes: Normal. negative: Blurred Vision, Diplopia, Discharge, Pain, Redness, Photophobia Ear: Normal. negative: Swelling, Ecchymosis, Hemotypanum, Abrasion, Laceration Nose: Discharge. negative: Injected, Blood Throat: Red, Dry. negative: Tonsillar Hypertrophy, Exudate Respiratory: Generalized, Wheezes Cardiovascular: Irregular (Irreg, irreg). negative: Murmur, Edema : Frequency, Discharge. negative: Bleeding, Auscultation: Bowel Sounds: Normal. negative: Bruit Palpation: Normal. negative: Spleen Enlarged, Liver Enlarged, Mass Pulsatile Tenderness: Normal. negative: Rebound, Guarding, Rigidity Skin: Normal. negative: Diaphoresis, Wound, Bruising, Ecchymosis Musculoskeletal: Instability Psychiatric: Anxiety Mood Description: Anxious, Appropriate Affect: Normal Speech Pattern: Clear, Appropriate - Laboratory and Diagnostics Result Diagrams: 02/05/17 04:15 02/05/17 04:15 Labs: Laboratory WBC 6.6 X10^3/uL (3.6-10.0) 02/05/17 04:15 RBC 3.77 X10^6/uL (3.5-5.4) 02/05/17 04:15 Hgb 10.7 g/dL (12.0-16.0) L 02/05/17 04:15 Hct 33.5 % (36.0-47.0) L 02/05/17 04:15 MCV 88.8 fL (80.0-100.0) 02/05/17 04:15 MCH 28.3 pg (27.0-34.0) 02/05/17 04:15 MCHC 31.9 g/dL (33.0-35.0) L 02/05/17 04:15 RDW 13.3 % (11.6-16.5) 02/05/17 04:15 Plt Count 300 X10^3/uL (150.0-450.0) 02/05/17 04:15 Plt Count Comment Adequate (ADEQUATE) 02/05/17 04:15 MPV 7.1 fL (7.4-11.0) L 02/05/17 04:15 Neut % 87.8 % (42.0-75.0) H 02/05/17 04:15 Lymph % 6.4 % (21.0-51.0) L 02/05/17 04:15 [place] % 5.7 % (0.0-13.0) 02/05/17 04:15 Eos % 0.0 % (0.9-2.9) L 02/05/17 04:15 Baso % 0.1 % (0.2-1.0) L 02/05/17 04:15 Neut # 5.7 x10^3/uL (2.2-4.8) H 02/05/17 04:15 Lymph # 0.4 X10^3/uL (1.3-2.9) L 02/05/17 04:15 [place] # 0.4 x10^3/uL (0.3-0.8) 02/05/17 04:15 Eos # 0.0 x10^3/uL (0.0-0.2) 02/05/17 04:15 Baso # 0.0 X10^3/uL (0.0-0.1) 02/05/17 04:15 Absolute Nucleated RBC 0.1 /100WBC 02/05/17 04:15 Total Counted 100 02/05/17 04:15 Neutrophils % (Manual) 88 % (39-76) H 02/05/17 04:15 Lymphocytes % (Manual) 9 % (13-43) L 02/05/17 04:15 Monocytes % (Manual) 3 % (4-9) L 02/05/17 04:15 Plt Morphology Comment Normal (NORMAL) 02/05/17 04:15 RBC Morphology Normal (NORMAL) 02/05/17 04:15 INR Target Range - 01/31/17 13:55 INR 1.00 (0.8-1.3) 01/31/17 13:55 PTT 22.8 SECONDS (22.9-36.5) L 01/31/17 13:55 PTT Comment - 01/31/17 13:55 Sample Site Lr 02/05/17 05:23 ABG pH 7.500 (7.35-7.45) H 02/05/17 05:23 ABG pCO2 67.0 mmHg (35.0-45.0) H* 02/05/17 05:23 ABG pO2 75.0 mmHg (80.0-100.0) L 02/05/17 05:23 ABG HCO3 52.2 mmol/L (22-26) H* 02/05/17 05:23 ABG O2 Saturation 96.0 % (90-100) 02/05/17 05:23 ABG Base Excess 24.7 mmol/L (-2.0-2.0) H 02/05/17 05:23 [place] Test Pos 02/05/17 05:23 A-a Gradient 98.0 mmHg 02/05/17 05:23 FiO2 36.000 02/05/17 05:23 Blood Gas Comments Julio well ae 02/05/17 05:23 Sodium 143 mmol/L (136-145) 02/05/17 04:15 Corrected Sodium 143 mmol/L (136-145) 02/05/17 04:15 Potassium 4.0 mmol/L (3.5-5.1) 02/05/17 04:15 Chloride 100 mmol/L (98-107) 02/05/17 04:15 Carbon Dioxide 41.1 mmol/L (21-32) H* 02/05/17 04:15 BUN 23 mg/dL (7-18) H 02/05/17 04:15 Creatinine 0.94 mg/dL (0.55-1.02) 02/05/17 04:15 Est GFR (MDRD) Af Amer > 60 (>60) 02/05/17 04:15 Est GFR (MDRD) Non-Af > 60 (>60) 02/05/17 04:15 Glucose 112 mg/dL (65-99) H 02/05/17 04:15 Calcium 8.7 mg/dL (8.5-10.1) 02/05/17 04:15 Corrected Calcium 9.7 mg/dL (8.5-10.1) 02/05/17 04:15 Magnesium 2.0 mg/dL (1.7-2.9) 01/31/17 13:55 Total Bilirubin 0.40 mg/dL (0.2-1.0) 02/05/17 04:15 AST 35 Units/L (15-37) 02/05/17 04:15 ALT 30 Units/L (12-78) 02/05/17 04:15 Alkaline Phosphatase 43 Units/L (46-116) L 02/05/17 04:15 Creatine Kinase 41 Units/L (26-192) 01/31/17 13:55 CK-MB (CK-2) 1.2 ng/mL (0-4.0) 01/31/17 13:55 CK/CKMB % Calc 2.9 % (<4) 01/31/17 13:55 Troponin I 0.03 ng/mL (0-1.5) 01/31/17 13:55 Total Protein 6.1 g/dL (6.4-8.2) L 02/05/17 04:15 Albumin 2.8 g/dL (3.4-5.0) L 02/05/17 04:15 Globulin 3.3 g/dL (2.5-4.5) 02/05/17 04:15 Albumin/Globulin Ratio 0.8 Ratio (1.1-2.1) L 02/05/17 04:15 Specimen Type Clean catch urine 02/04/17 14:35 Urine Color Yellow (YELLOW) 02/04/17 14:35 Urine Appearance Hazy (CLEAR) 02/04/17 14:35 Urine pH 7.0 (5.0 - 8.0) 02/04/17 14:35 Ur Specific [place] 1.010 (1.000-1.030) 02/04/17 14:35 Urine Protein 3+ (NEGATIVE) 02/04/17 14:35 Urine Glucose (UA) Negative (NEGATIVE) 02/04/17 14:35 Urine Ketones Negative (NEGATIVE) 02/04/17 14:35 Urine Occult Blood 3+ (NEGATIVE) 02/04/17 14:35 Urine Nitrite Negative (NEGATIVE) 02/04/17 14:35 Urine Bilirubin Negative (NEGATIVE) 02/04/17 14:35 Urine Urobilinogen Normal (NORMAL) 02/04/17 14:35 Ur Leukocyte Esterase Negative (NEGATIVE) 02/04/17 14:35 Urine RBC 0-3 /HPF (NEGATIVE) 02/04/17 14:35 Urine WBC 0-3 /HPF (NEGATIVE) 02/04/17 14:35 Ur Squamous Epith Cells Few /HPF (NEGATIVE) 02/04/17 14:35 Amorphous Sediment Trace /HPF (NEGATIVE) 02/01/17 05:35 Urine Bacteria Trace /HPF (NEGATIVE) 02/04/17 14:35 Hyaline Casts Rare /LPF (NEGATIVE) 02/01/17 05:35 Granular Casts Few /LPF (NEGATIVE) 02/04/17 14:35 Urine Yeast Moderate /HPF (NEGATIVE) 02/04/17 14:35 Ur Culture Indicated? No/not indicated 02/04/17 14:35 - Plan (1) COPD (chronic obstructive pulmonary disease) Status: Acute Qualifiers: COPD type: COPD with acute exacerbation Chronic bronchitis type: C Emphysema type: E Qualified Code(s): J44.1 - Chronic obstructive pulmonary disease with (acute) exacerbation Plan: CONTINUE SOLUMEDROL, DUONEBS, BIPAP, IV LEVAQUIN, FORTAZ, SUPPLEMENTAL OXYGEN, ROBITUSSIN, MONITOR LABS AND CHEST XRAY. (2) Hypoalbuminemia Status: Acute Plan: CONTINUE ALBUMIN IV, MONITOR LABS. (3) Streptococcus pneumoniae infection Status: Acute Plan: CONTINUE IV LEVAQUIN, MONITOR CHEST XRAY. (4) E-coli UTI Status: Acute Plan: CONTINUE FORTAZ, MONITOR. (5) Respiratory distress Status: Acute Plan: ABOVE. (6) Hypercapnemia Status: Acute Plan: ABOVE. (7) Anxiety Status: Chronic Plan: CHANGE ATIVAN TO SCHEDULED ATC TID, MONITOR. (8) Generalized pain Status: Chronic Plan: CONTINUE PERCOCET, MONITOR. (9) Diabetes mellitus Status: Chronic Qualifiers: Diabetes mellitus type: type 2 Diabetes mellitus complication status: with hyperglycemia Diabetes mellitus complication detail: D Diabetic retinopathy severity: D Proliferative retinopathy type: P Diabetes mellitus macular edema: D Diabetes mellitus termite control representative insulin use: with mcc use Laterality: L Chronic kidney disease stage: C Qualified Code(s): E11.65 - Type 2 diabetes mellitus with hyperglycemia; Z79.4 - vermin exterminator (current) use of insulin
[2017-02-05] MEDS: HUMULIN R SC PRN (18:11)
[2017-02-05] MEDS: SNACK - Diabetic Appropriate PO SCH (22:16)
[2017-02-05] MEDS: ROBITUSSIN DM PO PRN (22:19)
[2017-02-05] MEDS: NEURONTIN CAP 100 MG PO SCH (22:20)
[2017-02-05] MEDS: LIPITOR TAB 10 MG PO SCH (22:20)
[2017-02-05] MEDS: AMBIEN PO SCH (22:21)
[2017-02-06] MEDS: ATIVAN TAB 0.5 MG PO SCH ×2 (05:25→13:48)
[2017-02-06] MEDS: SOLU-MEDROL 125 MG VIAL IVP SCH ×2 (05:25→13:47)
[2017-02-06] MEDS: PERCOCET TAB 5/325 MG PO PRN ×3 (05:25→13:48)
[2017-02-06] MEDS: PHENERGAN INJ 25 MG IV PRN (05:26)
[2017-02-06 06:02] LABS: ABG BASE EXCESS 23.3 mmol/L (-2.0-2.0)
[2017-02-06 06:07] LABS: ABG ALLEN TEST POS; ABG HCO3 53.3 mmol/L (22-26)
[2017-02-06 06:18] LABS: BASOPHILS % (AUTO) 0.2 % (0.2-1.0); HEMOGLOBIN 10.1 g/dL (12.0-16.0); LYMPHOCYTES # (AUTO) 0.4 X10^3/uL (1.3-2.9); LYMPHOCYTES % (AUTO) 5.3 % (21.0-51.0); MEAN CORPUSCULAR HEMOGLOBIN 28.8 pg (27.0-34.0); MEAN CORPUSCULAR HGB CONC 32.7 g/dL (33.0-35.0); MEAN CORPUSCULAR VOLUME 88.1 fL (80.0-100.0); MEAN PLATELET VOLUME 7.6 fL (7.4-11.0); MONOCYTES # (AUTO) 0.3 x10^3/uL (0.3-0.8); MONOCYTES % (AUTO) 4.2 % (0.0-13.0); NEUTROPHILS % (AUTO) 90.3 % (42.0-75.0); PLATELET COUNT 258 X10^3/uL (150.0-450.0); RED BLOOD COUNT 3.52 X10^6/uL (3.5-5.4); RED CELL DISTRIBUTION WIDTH 13.4 % (11.6-16.5); WHITE BLOOD COUNT 6.7 X10^3/uL (3.6-10.0)
[2017-02-06] MEDS: FORTAZ or TAZICEF INJ 2 GM in NS 50 ML IV 50 ML IV SCH (06:25)
[2017-02-06 06:50] LABS: ALANINE AMINOTRANSFERASE 30 Units/L (12-78); ALKALINE PHOSPHATASE 42 Units/L (46-116); ASPARTATE AMINO TRANSFERASE 28 Units/L (15-37); BLOOD UREA NITROGEN 25 mg/dL (7-18); CALCIUM 8.8 mg/dL (8.5-10.1); CHLORIDE 99 mmol/L (98-107); COR CA(FOR HYPOALB) 9.6 mg/dL (8.5-10.1); COR NA(FOR HYPERGLY) 144 mmol/L (136-145); CREATININE 0.98 mg/dL (0.55-1.02); GLUCOSE 190 mg/dL (65-99); SODIUM 142 mmol/L (136-145); TOTAL PROTEIN 5.8 g/dL (6.4-8.2); eGFR BLACK RACES > 60 (>60); eGFR NON BLACK RACES > 60 (>60)
[2017-02-06 07:00] LABS: CARBON DIOXIDE 41.3 mmol/L (21-32)
[2017-02-06 07:11] LABS: BAND NEUTROPHILS % 2 % (0-10)
[2017-02-06 07:12] LABS: METAMYELOCYTES % 2; PLATELET MORPHOLOGY COMMENT NORMAL (NORMAL)
--- NOTE | 2017-02-06 08:32 | RAD ---
Examination: Chest x-ray. Clinical history: Respiratory distress. Technique: A single portable AP view of the chest was obtained. Comparison: 02/05/2017. Findings: The lung bases were omitted from the image. The cardiac silhouette appears enlarged. The cardiac silhouette size may be accentuated by the AP pr ojection. The thoracic aorta is calcified. No pneumothorax is noted. There are hazy confluent opacities present in the mid and lower lung zones bilaterally. Findings are not significantly changed when compared with the prior examination and could be due to superimposit ion of soft tissue, pulmonary edema or pneumonia, with possible associated bilateral pleural effusio ns. The bones are diffusely osteopenic. Degenerative changes are noted in the spine and at the shoulders bilaterally. No acute osseous abnormality is noted. Impression: 1. Limited examination. The lung bases were omitted from the image and the patient body habitus make s evaluation technically difficult. 2. The cardiac silhouette appears enlarged. The cardiac silhouette size may be accentuated by the AP projection. 3. There are hazy confluent opacities present in the mid and lower lung zones bilaterally. Findings are not significantly changed when compared with the prior examination and could be due to superimpo sition of soft tissue, pulmonary edema or pneumonia, with possible associated bilateral pleural effu sions. Reported By:
[2017-02-06] MEDS: DUONEB 0.5 MG/3 MG NEB SCH ×2 (08:55→12:15)
[2017-02-06] MEDS: ALBUMIN HUMAN 25%- 100ML 100 ML IV SCH (09:41)
[2017-02-06] MEDS: TOPROL XL PO SCH (09:42)
[2017-02-06] MEDS: CALAN SR 240 MG PO SCH (09:42)
[2017-02-06] MEDS: ASPIRIN EC 81 MG PO SCH (09:42)
[2017-02-06] MEDS: LEVAQUIN PREMIX IV 500 MG 500 MG/100 ML BAG IV SCH (09:42)
[2017-02-06] MEDS: ZANAFLEX PO SCH (09:43)
[2017-02-06] MEDS: PREVACID PO SCH (09:43)
[2017-02-06] MEDS: SINGULAIR TAB 10 MG PO SCH (09:43)
[2017-02-06] MEDS: LOVENOX INJ 30 MG SYR SC SCH (09:44)
[2017-02-06] MEDS: LANTUS SC SCH (09:45)
[2017-02-06] MEDS: MAGIC MOUTHWASH MT SCH ×2 (10:00→14:41)
[2017-02-06] MEDS: PATIENT'S HOME MEDICATION PO SCH ×2 (10:00→14:40)
[2017-02-06] MEDS: ROBITUSSIN DM PO PRN (10:02)
[2017-02-06] MEDS: NYSTATIN POWDER TOP SCH (11:50)
[2017-02-06] MEDS: HUMULIN R SC PRN (13:48)
[2017-02-06 14:45] VITALS: BP 139/65
== END 2017-02-06 15:30 | disposition home health service (06) | DRG 190 ==
LOC: ER 13:18 → MED/SURG 17:07 → OBSVTOIN 02-02 08:00
PROVIDERS: ADMIT Internal Medicine; ATTEND Internal Medicine
DX: J44.0 Chronic obstructive pulmonary disease with (acute) lower respiratory infection (principal); J20.8 Acute bronchitis due to other specified organisms; B95.3 Streptococcus pneumoniae as the cause of diseases classified elsewhere; J44.1 Chronic obstructive pulmonary disease with (acute) exacerbation; E66.2 Morbid (severe) obesity with alveolar hypoventilation; J96.92 Respiratory failure, unspecified with hypercapnia; E11.22 Type 2 diabetes mellitus with diabetic chronic kidney disease; E11.319 Type 2 diabetes mellitus with unspecified diabetic retinopathy without macular edema; N18.9 Chronic kidney disease, unspecified; E88.09 Other disorders of plasma-protein metabolism, not elsewhere classified; N39.0 Urinary tract infection, site not specified; B96.20 Unspecified Escherichia coli [E. coli] as the cause of diseases classified elsewhere; F41.9 Anxiety disorder, unspecified; R52 Pain, unspecified; I48.91 Unspecified atrial fibrillation
CPT/HCPCS: 36415; 36600; 71010; 71020; 80048; 80053; 81001; 82550; 82553; 82803; 83735; 84484; 85025; 85610; 85730; 87040; 87070; 87077; 87086; 87088; 87186; 87205; 93005; 94640; 94660; 94760; 96365; 96367; 96374; 96375; 99284; A4216; A4217; A4222; A4618; P9047; G0378; J0713; J1650; J1815; J1956; J2550; J2920; J2930; J7620

== ENCOUNTER 2018-01-22 15:44 | Emergency (ER) | payer OTHER, MEDICAID ==
[2018-01-22 16:02] VITALS: BP 138/82; BMI 32.4
--- NOTE | 2018-01-22 18:07 | DR.HEADACH ---
HPI - Time Seen Time seen: 17:50 - Primary Care Physician Primary Care Physician: MARVIN - HPI Comment HPI Comment: HISTORY AT BELOW. - Complaint/Symptoms Chief Complaint Doctors Comments: PATIENT HAVE SHINGLES INVOLVING RIGHT SCALP AND EYE MUSCLES. HERE FOR INCRESING HEADACHE. Chief Complaint:: PATIENT WAS DX WITH SHINGLES 3 WEEKS AGO AND THE LAST 3 DAYS SHE HAS BEEN HAVING SEVER HEAD PAIN ON THE RIGHT SIDE THAT IS GETTING WORSE ABOUT 5 TIMES A DAY. Pertinent History: Headache, Rash (DUE TO SHINGLES.) - Reviewed Nurses Notes Reviewed: Yes - Source History Provided: Patient - Mode of Arrival Mode of Arrival: Wheelchair - Timing Onset of Chief Complaint: 01/19/18 - Duration Since Onset: Constant Duration: Days - Location Headache Location: Generalized - Quality Quality: Throbbing - Severity Headache Severity: Moderate - Context Headache Onset Circumstances: Recent Stress (SHINGLES) History of: None Prior Work Up: None - Modifying Factors Improves With: Nothing Worsens: Nothing - Associated Signs and Symptoms Associated Symptoms: None Aura: denies: Visual, Sensory, Motor, Mood PMH - PMH Past Medical History: Yes Past Medical History: Asthma, COPD, Diabetes, Hyperthyroidism Past Surgical History: No Surgical History: Other - Family History History of Family Medical Conditions: No - Social History Does patient currently use any type of tobacco product: No Have you used tobacco products in the last 12 months: No Type of Tobacco Use: None Does any household member use tobacco: No Alcohol Use: None Do you use any recreational Drugs:: No Lives With: Family Lives Where: Home - infectious screening In the last 2 months have you had wt loss of >10#?: NO Have you had fever, night sweats or hemotysis?: No Have you traveled outside the country in the last 6 months?: No Isolation: Standard ROS - Review of Systems Constitutional: No Symptoms Reported. negative: Chills, Fever Eyes: Tearing. negative: Eye Pain, Discharge ENTM: negative: Ear Pain, Nose Discharge, Nose Congestion, Throat Pain Respiratoy: Short of Breath (ON EXERTION). negative: Productive Cough, Wheezing , Hemoptysis Cardiovascular: No Symptoms Reported Gastrointestinal/Abdominal: No Symptoms Reported Genitourinary: No Symptoms Reported Neurological: Other (PAIN FROM SHINGLES RIGHT EYE MUSLES AND SCALP.) Musculoskeletal: Other (RIGHT SCALP PAIN) Integumentary: Rash (RIGHT CALP AND EYE) Hematologic/Lymphatic: No Symptoms Reported Endocrine: No Symptoms Reported All Other Systems: Reviewed and Negative PE - Vital Signs Vitals: Temperature 97.3 F Pulse Rate 94 Respiratory Rate 18 Blood Pressure [Left Calf] 185/88 Blood Pressure [Right Calf] 126/81 Blood Pressure [Left Arm] 139/65 Blood Pressure [Right Arm] 156/70 Blood Pressure 138/82 O2 Sat by Pulse Oximetry 97 - General Limitations: No Limitations General Appearance: Alert - Head Head Exam: Normal Inspection - Eyes Eye exam: PERRL, EOMI, Other (SINGLES RASH RT SCALP AND EYE.) Eyelids: Erythema: Bilateral, Other: Bilateral (SHINGLES RASH.) Pupils: Regular, Round: Bilateral, Reactive: Bilateral Sclera/Conjunctival: Normal Inspection: Bilateral - ENT ENT Exam: Normal External Ear Exam External Ear Exam: Normal External Inspection TM/Canal Exam: Bilateral Normal Mouth Exam: Normal Inspection Teeth Exam: Normal Inspection Throat Exam: Normal Inspection - Neck Neck Exam: Normal Inspection - Chest Chest Inspection: Symmetric Chest Wall Rise - Respiratory Respiratory Exam: Normal Lung Sounds Bilat Respiratory Exam: Bilateral Crackles, Lower Crackles - Cardiovascular Cardiovascular Exam: Regular Rate, Normal Rhythm, Normal Heart Sounds - Abdominal Exam Abdominal Exam: Normal Bowel Sounds, Soft. negative: Tenderness - Extremities Extremities Exam: Normal Inspection - Back Back Exam: Normal Inspection - Neurologic Neurological Exam: Alert, Oriented X3 - Psychiatric Psychiatric Exam: Normal Affect, Normal Mood - Skin Skin Exam: Normal Color MDM - Additional Information Obtained Additional Information Obtained From: Family - Differential Diagnosis Differential Diagnosis: Considerations may include:: Migraine, Muscular contraction, CVA, Intracerebral Hemorrhage, Subarachnoid Hemorhage, Subdural Hemorrhage, Sinusitis, Trigeminal neuralgia, Other (POST SHINGLES [id number]) Course - Treatment Treatment: SEE ORDERS. - Education/Counseling Education/Counseling: Patient, Family, Education Educated On: Diagnosis, Needs for Follow Up ROR - Labs Reviewed Laboratory Results Reviewed?: Yes Laboratory: POC Glucose (mg/dL) 398 mg/dL (65-99) H 01/22/18 19:17 - XRAY XRAY Interpreted by: Radiologist XRAY Findings: REPORT DISCUSS WITH PATIENT AND HER DAUGHTER. - Diagnosis Discharge Problem: Headache Qualifiers: Headache type: other headache syndrome Qualified Code(s): G44.89 - Other headache syndrome Shingles Qualifiers: Herpes zoster complications: with other complications Qualified Code(s): B02.8 - Zoster with other complications - Discharge Plan Disposition: 01 HOME, SELF-CARE Condition: Stable - Follow ups/Referrals Follow ups/Referrals: Miguel Young [Primary Care Provider] - 3 days - Instructions Instructions: Shingles, Neuropathic Pain Additional Instructions: RETURN TO ED IF WORSE. CONTINUE WITH MEDS AT HOME FOR PAIN.
[2018-01-22] MEDS ORDERED: TORADOL 60 MG VIAL IM ONE (18:33)
--- NOTE | 2018-01-22 18:47 | CT ---
CT HEAD WITHOUT CONTRAST CLINICAL HISTORY: 62-year-old female with head pain from shingles. COMPARISON: None. TECHNIQUE: Multiple, non-contrasted axial CT images were obtained from the skull base to the cranial vertex. Coronal and sagittal reformats were performed. FINDINGS: There are no abnormal intra- or extra-axial fluid collections, midline shift, or mass effec t. Nichols-white differentiation is normal. Partially empty sella. Global cortical involutional changes are present that are advanced for the patient's stated age. The ventricular system is mildly enlarged but commensurate with the degree of sulcal prominence. Periventricular and supraventricular white ma tter hypodensity is present that is nonspecific in appearance, but most likely to represent microvasc ular ischemic changes. Atherosclerotic vascular calcification is present within the carotid siphons a nd distal vertebral arteries. The imaged paranasal sinuses, mastoid air cells, and tympanic spaces are clear. IMPRESSION: 1. No definite evidence of an acute intracranial process. If clinical concern persists, consider MRI/ MRA brain. 2. Moderate microvascular white matter ischemic changes, with associated volume loss. Reported By:
[2018-01-22] MEDS ORDERED: TORADOL 60 MG VIAL ONE (18:52)
== END 2018-01-22 19:24 | disposition home or self-care (01) ==
LOC: ER 16:13
DX: G44.89 Other headache syndrome (principal); B02.8 Zoster with other complications
CPT/HCPCS: 70450; 96372; 99282; 99283; J1885

== ENCOUNTER 2020-05-07 11:51 | Observation (INO) ==
[2020-05-07 12:09] VITALS: BMI 35.2
--- NOTE | 2020-05-07 12:12 | DR.EXTPAIN ---
HPI Time seen Time Seen by Provider: 05/07/20 11:59 HPI Comment HPI Comment: Patient is bed confined but can transfer to bedside commode. Yesterday fell while transferring back to bed. Denied pain yesterday but today complains of left knee and left hip pain. COVID-19 Coronavirus risk:travel/contact w/high risk person: No Has patient experienced Coronavirus symptoms: No Nurses notes reviewed Nurses Notes Review: Yes Source History Provided: Patient and Family Member Mode of arrival Mode of Arrival: EMS Timing Onset of Chief Complaint: 05/06/20 Associated signs and symptoms Associated Signs and Symptoms: Abrasion (left knee contusion) PMH PMH Past Medical History: Asthma, COPD, Diabetes and Hyperthyroidism Past Surgical History: No Surgical History: Other Social History Do you use any recreational Drugs:: No ROS Review of Systems Constitutional: No Symptoms Reported Eyes: No Symptoms Reported ENTM: No Symptoms Reported Respiratoy: No Symptoms Reported Cardiovascular: No Symptoms Reported Gastrointestinal/Abdominal: No Symptoms Reported Genitourinary: No Symptoms Reported Neurological: No Symptoms Reported Musculoskeletal: Left, Hip (pain) and Knee (hematoma and pain) Integumentary: Bruises (left knee) Hematologic/Lymphatic: No Symptoms Reported Endocrine: No Symptoms Reported Psychiatric: Depression All Other Systems: Reviewed and Negative PE Vital Signs Vitals: Temperature 98.6 F Pulse Rate 92 Respiratory Rate 16 Blood Pressure [Left Calf] 185/88 Blood Pressure [Right Calf] 126/81 Blood Pressure [Left Arm] 139/65 Blood Pressure [Right Arm] 156/70 Blood Pressure 130/88 O2 Sat by Pulse Oximetry 100 General Limitations: No Limitations General Appearance: Alert and In No Apparent Distress Head Head Exam: Normal Inspection and Atraumatic Eyes Eye exam: Normal Appearance and EOMI ENT ENT Exam: Normal Exam and Normal Oropharynx Neck Neck Exam: Normal Inspection, Full ROM and Trachea Midline Chest Chest Inspection: Normal Inspection Respiratory Respiratory Exam: Normal Lung Sounds Bilat; negative Accessory Muscle Use Respiratory Exam: Bilateral: Clear to Auscultation Cardiovascular Cardiovascular Exam: Regular Rate Abdominal Exam Abdominal Exam: Normal Inspection Extremities Extremities Exam: Normal Inspection and Full ROM Upper Extremities Shoulder Exam: Normal Inspection and Full ROM Arm Exam: Normal Inspection Elbow Exam: Normal Inspection Forearm Exam: Normal Inspection Hand Exam: Normal Inspection Lower Extremities Hip/Pelvis Exam: Other (pelvic rock no pain) Knee Exam: Swelling, Abrasion and Ecchymosis (left knee); negative Normal Inspection Lower Leg Exam: Normal Inspection and Full ROM Ankle Exam: Normal Inspection and Full ROM Foot/Toe Exam: Normal Inspection and Full ROM Neurovascular/Tendon Exam: Normal Capillary Refill Gait Exam: Observed and Normal Back Back Exam: Normal Inspection and Full ROM Neurological Neurological Exam: Alert, Oriented X3 and CN II-XII Intact Psychiatric Psychiatric Exam: Normal Affect and Normal Mood Skin Skin Exam: Normal Color COURSE Treatment Treatment: ABG reveals COPD with Hypoxia ROR Labs Reviewed Result Diagrams: 05/07/20 13:50 05/07/20 13:50 Laboratory: WBC 7.2 X10^3/uL (3.6-10.0) 05/07/20 13:50 RBC 3.15 X10^6/uL (3.5-5.4) L 05/07/20 13:50 Hgb 9.7 g/dL (12.0-16.0) L 05/07/20 13:50 Hct 30.5 % (36.0-47.0) L 05/07/20 13:50 MCV 96.9 fL (80.0-100.0) 05/07/20 13:50 MCH 30.8 pg (27.0-34.0) 05/07/20 13:50 MCHC 31.8 g/dL (33.0-35.0) L 05/07/20 13:50 RDW 13.0 % (11.6-16.5) 05/07/20 13:50 Plt Count 212 X10^3/uL (150.0-450.0) 05/07/20 13:50 MPV 6.5 fL (7.4-11.0) L 05/07/20 13:50 Neut % (Auto) 75.0 % (42.0-75.0) 05/07/20 13:50 Lymph % (Auto) 10.2 % (21.0-51.0) L 05/07/20 13:50 [place] % (Auto) 8.0 % (0.0-13.0) 05/07/20 13:50 Eos % (Auto) 6.1 % (0.9-2.9) H 05/07/20 13:50 Baso % (Auto) 0.7 % (0.2-1.0) 05/07/20 13:50 Neut # (Auto) 5.4 x10^3/uL (2.2-4.8) H 05/07/20 13:50 Lymph # (Auto) 0.7 X10^3/uL (1.3-2.9) L 05/07/20 13:50 [place] # (Auto) 0.6 x10^3/uL (0.3-0.8) 05/07/20 13:50 Eos # (Auto) 0.4 x10^3/uL (0.0-0.2) H 05/07/20 13:50 Baso # (Auto) 0.0 X10^3/uL (0.0-0.1) 05/07/20 13:50 Absolute Nucleated RBC 0.0 /100WBC 05/07/20 13:50 Sample Site Left brachial 05/07/20 14:08 ABG pH 7.290 (7.35-7.45) L 05/07/20 14:08 ABG pCO2 109.0 mmHg (35.0-45.0) H* 05/07/20 14:08 ABG pO2 238.0 mmHg (80.0-100.0) H 05/07/20 14:08 ABG HCO3 52.4 mmol/L (22-26) H* 05/07/20 14:08 ABG O2 Saturation 100.0 % (90-100) 05/07/20 14:08 ABG Base Excess 20.5 mmol/L (-2.0-2.0) H 05/07/20 14:08 [place] Test Na 05/07/20 14:08 A-a Gradient -89.0 mmHg 05/07/20 14:08 FiO2 40.0 05/07/20 14:08 Blood Gas Comments Julio well aw 05/07/20 14:08 Sodium 136 mmol/L (136-145) 05/07/20 13:50 Corrected Sodium 137 mmol/L (136-145) 05/07/20 13:50 Potassium 5.3 mmol/L (3.5-5.1) H 05/07/20 13:50 Chloride 95 mmol/L (98-107) L 05/07/20 13:50 Carbon Dioxide 44.4 mmol/L (21-32) H* 05/07/20 13:50 BUN 25 mg/dL (7-18) H 05/07/20 13:50 Creatinine 1.37 mg/dL (0.55-1.02) H 05/07/20 13:50 Est GFR (MDRD) Af Amer 50 (>60) L 05/07/20 13:50 Est GFR (MDRD) Non-Af 41 (>60) L 05/07/20 13:50 Glucose 149 mg/dL (65-99) H 05/07/20 13:50 Calcium 9.0 mg/dL (8.5-10.1) 05/07/20 13:50 Corrected Calcium 10.0 mg/dL (8.5-10.1) 05/07/20 13:50 Total Bilirubin 0.20 mg/dL (0.2-1.0) 05/07/20 13:50 AST 20 Units/L (15-37) 05/07/20 13:50 ALT 17 Units/L (12-78) 05/07/20 13:50 Alkaline Phosphatase 94 Units/L (46-116) 05/07/20 13:50 Total Protein 6.6 g/dL (6.4-8.2) 05/07/20 13:50 Albumin 2.7 g/dL (3.4-5.0) L 05/07/20 13:50 Globulin 3.9 g/dL (2.5-4.5) 05/07/20 13:50 Albumin/Globulin Ratio 0.7 Ratio (1.1-2.1) L 05/07/20 13:50 XRAY XRAY Interpreted by: Radiologist X-ray Results: Right Hip CT scan femoral Neck fracture Opioid Opioid Risk Tool Total: 0 Total Score Risk Category: Low Risk Copyright: Gilson RICHARDSON predicting aberrant behaviors
--- NOTE | 2020-05-07 13:01 | CT ---
HISTORYFALL, RIGHT HIP/KNEE PAINSTUDYCT PELVIS without IV contrastCOMPARISONNoneTECHNIQUEMultiple axial images of the pelvis were obtained without the administration of IV contrast. Dose reduction techniques including Automated Exposure Control (AEC) and adjustment of mA and kV were utilized.FINDINGSBones are osteopenic. There is a right femoral neck fracture that has minimal angulation. Bones appear osteopenic. Mild arthritic changes are seen in the hips. No widening of the symphysis pubis or SI joints. No other fractures are seen.Normal appendix. Bladder wall appears shaggy which can be seen with cystitis. Appearance could be artifactual from underdistention, though. Sigmoid colonic diverticula are seen without evidence of diverticulitis. Few phleboliths are seen in the pelvis. Likely mild edema in the right gluteus leandro muscle.IMPRESSIONMinimally angulated fracture of the right femoral neck.Electronically signed by: Nito Rivas (May 07, 2020 12:59:38)
--- NOTE | 2020-05-07 13:05 | RAD ---
HISTORYFALL, RIGHT HIP/KNEE PAINSTUDYFour views of the right femurCOMPARISONNoneFINDINGSThere is no obvious fracture or periosteal reaction or lytic or blastic lesion. There is no significant knee joint effusion. There is chondrocalcinosis laterally in the right knee. No significant osteophyte formation is demonstrated.IMPRESSIONNo acute diseaseElectronically signed by: BEVERLEY GILLESPIE (May 07, 2020 13:04:32)
[2020-05-07 14:02] LABS: BASOPHILS % (AUTO) 0.7 % (0.2-1.0); EOSINOPHILS # (AUTO) 0.4 x10^3/uL (0.0-0.2); EOSINOPHILS % (AUTO) 6.1 % (0.9-2.9); HEMATOCRIT 30.5 % (36.0-47.0); HEMOGLOBIN 9.7 g/dL (12.0-16.0); LYMPHOCYTES # (AUTO) 0.7 X10^3/uL (1.3-2.9); LYMPHOCYTES % (AUTO) 10.2 % (21.0-51.0); MEAN CORPUSCULAR HEMOGLOBIN 30.8 pg (27.0-34.0); MEAN CORPUSCULAR HGB CONC 31.8 g/dL (33.0-35.0); MEAN CORPUSCULAR VOLUME 96.9 fL (80.0-100.0); MEAN PLATELET VOLUME 6.5 fL (7.4-11.0); MONOCYTES # (AUTO) 0.6 x10^3/uL (0.3-0.8); NEUTROPHILS # (AUTO) 5.4 x10^3/uL (2.2-4.8); PLATELET COUNT 212 X10^3/uL (150.0-450.0); RED BLOOD COUNT 3.15 X10^6/uL (3.5-5.4); WHITE BLOOD COUNT 7.2 X10^3/uL (3.6-10.0)
[2020-05-07 14:09] LABS: CREATININE 1.37 mg/dL (0.55-1.02)
[2020-05-07 14:14] LABS: ALBUMIN 2.7 g/dL (3.4-5.0); TOTAL PROTEIN 6.6 g/dL (6.4-8.2)
[2020-05-07 14:17] LABS: CARBON DIOXIDE 44.4 mmol/L (21-32)
[2020-05-07 14:17] LABS: ABG BASE EXCESS 20.5 mmol/L (-2.0-2.0)
[2020-05-07 14:18] LABS: ABG HCO3 52.4 mmol/L (22-26)
[2020-05-07] MEDS ORDERED: ZOFRAN INJ 4 MG VIAL IVP PRN (16:28)
[2020-05-07 17:50] LABS: BILIRUBIN,URINE NEGATIVE (NEGATIVE); BLOOD/HEMOGLOBIN,URINE 4+ (NEGATIVE); GLUCOSE, URINE NEGATIVE (NEGATIVE); KETONES,URINE 1+ (NEGATIVE); LEUKOCYTE ESTERASE ,URINE 3+ (NEGATIVE); NITRITES,URINE POSITIVE (NEGATIVE); PROTEIN,URINE 3+ (NEGATIVE); UROBILINOGEN,URINE NORMAL (NORMAL)
[2020-05-07 17:52] LABS: APPEARANCE,URINE TURBID (CLEAR); COLOR,URINE YELLOW (YELLOW)
[2020-05-07 17:57] LABS: BACTERIA,URINE 3+ /HPF (NEGATIVE); SQUAMOUS EPITHELIAL CELL,UR NEGATIVE /HPF (NEGATIVE)
[2020-05-07] MEDS ORDERED: FLEXERIL TAB 10 MG PO PRN (19:59)
[2020-05-07] MEDS ORDERED: XANAX PO PRN (19:59)
[2020-05-07] MEDS ORDERED: OXYCODONE ACETAMINOPHEN PO PRN (19:59)
[2020-05-07] MEDS ORDERED: SNACK - Diabetic Appropriate PO SCH (20:00)
[2020-05-07] MEDS: PROVENTIL NEB TX 0.083% 2.5MG/ 3ML NEB PRN (20:20)
[2020-05-07] MEDS ORDERED: LOVENOX INJ 40 MG SYR SC SCH (21:00)
[2020-05-07] MEDS ORDERED: UNIPHYL TAB 400 MG 24-HR PO SCH (21:00)
[2020-05-07] MEDS ORDERED: LIPITOR TAB 10 MG PO SCH (21:00)
[2020-05-07] MEDS ORDERED: AMBIEN PO SCH (21:00)
[2020-05-07] MEDS: TOPROL XL PO SCH (22:02)
[2020-05-07] MEDS: HumuLIN R SUBCUT PRN (22:03)
[2020-05-07] MEDS: NEURONTIN CAP 100 MG PO SCH (22:03)
[2020-05-07] MEDS: PERCOCET TAB 5/325 MG PO PRN (22:04)
[2020-05-08] MEDS: PERCOCET TAB 5/325 MG PO PRN (03:57)
[2020-05-08] MEDS: NEURONTIN CAP 100 MG PO SCH (05:30)
[2020-05-08 06:04] LABS: BLOOD UREA NITROGEN 26 mg/dL (7-18); CALCIUM 8.9 mg/dL (8.5-10.1); CHLORIDE 97 mmol/L (98-107); CREATININE 1.22 mg/dL (0.55-1.02); SODIUM 136 mmol/L (136-145); eGFR NON BLACK RACES 47 (>60)
[2020-05-08 06:08] LABS: CARBON DIOXIDE 43.5 mmol/L (21-32)
[2020-05-08 06:11] LABS: BASOPHILS # (AUTO) 0.1 X10^3/uL (0.0-0.1); BASOPHILS % (AUTO) 1.4 % (0.2-1.0); EOSINOPHILS # (AUTO) 0.5 x10^3/uL (0.0-0.2); EOSINOPHILS % (AUTO) 6.8 % (0.9-2.9); HEMATOCRIT 27.4 % (36.0-47.0); LYMPHOCYTES # (AUTO) 0.8 X10^3/uL (1.3-2.9); LYMPHOCYTES % (AUTO) 11.4 % (21.0-51.0); MEAN CORPUSCULAR HEMOGLOBIN 31.3 pg (27.0-34.0); MEAN CORPUSCULAR HGB CONC 32.9 g/dL (33.0-35.0); MEAN CORPUSCULAR VOLUME 95.2 fL (80.0-100.0); MEAN PLATELET VOLUME 6.4 fL (7.4-11.0); MONOCYTES # (AUTO) 0.5 x10^3/uL (0.3-0.8); MONOCYTES % (AUTO) 7.8 % (0.0-13.0); NEUTROPHILS # (AUTO) 4.8 x10^3/uL (2.2-4.8); NEUTROPHILS % (AUTO) 72.6 % (42.0-75.0); PLATELET COUNT 212 X10^3/uL (150.0-450.0); RED BLOOD COUNT 2.88 X10^6/uL (3.5-5.4); RED CELL DISTRIBUTION WIDTH 13.1 % (11.6-16.5); WHITE BLOOD COUNT 6.6 X10^3/uL (3.6-10.0)
[2020-05-08 08:52] LABS: ABG BASE EXCESS 24.6 mmol/L (-2.0-2.0)
[2020-05-08 08:54] LABS: ABG ALLEN TEST POS; ABG HCO3 55.8 mmol/L (22-26)
[2020-05-08] MEDS ORDERED: SINGULAIR TAB 10 MG PO SCH (09:00)
[2020-05-08] MEDS ORDERED: NexIUM PO SCH (09:00)
[2020-05-08] MEDS ORDERED: PATIENT'S HOME MEDICATION (Aspirin 81 MG) PO SCH (09:00)
[2020-05-08] MEDS ORDERED: PREDNISONE TAB 5 MG PO SCH (09:00)
[2020-05-08] MEDS: TOPROL XL PO SCH (09:04)
[2020-05-08] MEDS: ASPIRIN EC 81 MG PO SCH ×2 (09:04→09:05)
[2020-05-08] MEDS: PROVENTIL NEB TX 0.083% 2.5MG/ 3ML NEB PRN (09:40)
[2020-05-08] MEDS ORDERED: CALAN SR 120 MG PO SCH (10:00)
--- NOTE | 2020-05-08 10:38 | DR.SSS ---
SHORT STAY SUMMARY Admission Date Date of Admission: 05/07/20 Discharge Date Discharge Date: 05/08/20 Admission Diagnoses Admission Diagnoses: Right hip pain Discharge Diagnoses Discharge Diagnoses: Right hip fracture Hypertension Chronic respiratory failure oxygen dependent Chronic hypercapnia Immobility Severe COPD Chronic opioid use Chief Complaint Chief Complaint: right hip pain History of Present Illness History of Present Illness: Ms. Fowler is a 64 y/o female with multiple co- morbidities including severe COPD continuous oxygen dependent 4-5L at home, chronic opioid use, HTN, diabetes, immobility presented with right hip pain. Patient states she had a fall at home on Thursday as she was transferring from bed to the bedside commode. Patient is not ambulatory and uses wheelchair and scooter to get around. She sits in the bed all day and only transfers to commode. She states she called EMS after the fall and they said to if pain worsens than she will need to be taken to the ED. Patient states her pain was worse the next day so she called her PCP and was advised to go to ED. In in the ED, pelvic CT showed right hip fracture with minimal angulation. Patient was admitted for pain control and further evaluation. Past Medical History Past Medical History: Asthma, COPD, Diabetes and Hyperthyroidism Additional Medical History: Sleep Apnea, Hypercapnea, Gastrointestinal Bleed, Constipation, Back Pain, Diabetic Neuropathy, Previous Blood Transfusion Past Surgical History Surgical History: Other Additional Surgical History: Tubaligation Allergies Allergies Allergy/AdvReac Type Severity Reaction Status Date / Time ceftriaxone [From Rocephin] Allergy Verified 01/22/18 15:54 dexamethasone [From Decadron] Allergy Verified 01/22/18 15:54 Penicillins Allergy Verified 01/22/18 15:54 Sulfa (Sulfonamide Allergy Verified 01/22/18 15:54 Antibiotics) [SULFA] Medications Home Medications: ceftriaxone [From Rocephin] Allergy (Verified 01/22/18 15:54) dexamethasone [From Decadron] Allergy (Verified 01/22/18 15:54) Penicillins Allergy (Verified 01/22/18 15:54) Sulfa (Sulfonamide Antibiotics) [SULFA] Allergy (Verified 01/22/18 15:54) CONTINUE taking the following medications cyclobenzaprine 10 mg PO BID PRN 05/07/20 [History] esomeprazole magnesium [Nexium] 40 mg PO DAILY 05/07/20 [History] insulin aspart U-100 [Novolog Flexpen U-100 Insulin] See Rx Instructions .ROUTE .COMPLEX 05/07/20 [History] insulin glargine [Basaglar KwikPen U-100 Insulin] 25 unit SUBCUT BID 05/07/20 [History] linaclotide [Linzess] 145 mcg PO DAILY 05/07/20 [History] meclizine 25 mg PO TID PRN 05/07/20 [History] olopatadine 1 drp OPHTHALMIC (EYE) DAILY PRN 05/07/20 [History] oxycodone-acetaminophen [Endocet] 1 tab PO Q4H PRN 05/07/20 [History] prednisone 5 mg PO DAILY 05/07/20 [History] theophylline 400 mg PO HS 05/07/20 [History] umeclidinium-vilanterol [Anoro Ellipta] 2 inh INHALATION DIRECTED 05/07/20 [History] verapamil 240 mg PO BID 05/07/20 [History] Family History Family Medical History: Diabetes Mellitus, [place] and Hypertension Social History Does patient currently use any type of tobacco product: No Have you used tobacco products in the last 12 months: No Type of Tobacco Use: Cigarettes How many years tobacco product used: 30 Does any household member use tobacco: No Alcohol Use: None Drug Use: None Review of Systems Constitutional: Weakness Eyes: No Symptoms Reported ENT: No Symptoms Reported Respiratory: Shortness of Breath and SOB with Excertion Cardiovascular: No Symptoms Reported Gastrointestinal: No Symptoms Reported Musculoskeletal: Shoulder Pain, Back Pain and Leg Pain Skin: Bruising Neurological: No Symptoms Reported Physical Exam Vital Signs: Last Vital Signs Temp 98.4 F 05/08/20 08:00 Pulse 84 05/08/20 08:00 Resp 20 05/08/20 08:00 BP 143/71 05/08/20 08:00 Pulse Ox 100 05/08/20 08:00 Oriented: Normal Eyes: Normal Nose: Normal Respiratory: Diminished Throughout Cardiovascular: Normal Palpation: Normal Tenderness: Normal Skin: Bruising and Ecchymosis Musculoskeletal: Right and Hip Psychiatric: Normal Mood Description: Calm Affect: Normal Speech Pattern: Clear and Appropriate Labs Labs: Laboratory Last Values WBC 6.6 X10^3/uL (3.6-10.0) 05/08/20 05:41 RBC 2.88 X10^6/uL (3.5-5.4) L 05/08/20 05:41 Hgb 9.0 g/dL (12.0-16.0) L 05/08/20 05:41 Hct 27.4 % (36.0-47.0) L 05/08/20 05:41 MCV 95.2 fL (80.0-100.0) 05/08/20 05:41 MCH 31.3 pg (27.0-34.0) 05/08/20 05:41 MCHC 32.9 g/dL (33.0-35.0) L 05/08/20 05:41 RDW 13.1 % (11.6-16.5) 05/08/20 05:41 Plt Count 212 X10^3/uL (150.0-450.0) 05/08/20 05:41 MPV 6.4 fL (7.4-11.0) L 05/08/20 05:41 Neut % (Auto) 72.6 % (42.0-75.0) 05/08/20 05:41 Lymph % (Auto) 11.4 % (21.0-51.0) L 05/08/20 05:41 [place] % (Auto) 7.8 % (0.0-13.0) 05/08/20 05:41 Eos % (Auto) 6.8 % (0.9-2.9) H 05/08/20 05:41 Baso % (Auto) 1.4 % (0.2-1.0) H 05/08/20 05:41 Neut # (Auto) 4.8 x10^3/uL (2.2-4.8) 05/08/20 05:41 Lymph # (Auto) 0.8 X10^3/uL (1.3-2.9) L 05/08/20 05:41 [place] # (Auto) 0.5 x10^3/uL (0.3-0.8) 05/08/20 05:41 Eos # (Auto) 0.5 x10^3/uL (0.0-0.2) H 05/08/20 05:41 Baso # (Auto) 0.1 X10^3/uL (0.0-0.1) 05/08/20 05:41 Absolute Nucleated RBC 0.0 /100WBC 05/08/20 05:41 Sample Site Rra 05/08/20 08:50 ABG pH 7.350 (7.35-7.45) 05/08/20 08:50 ABG pCO2 101.0 mmHg (35.0-45.0) H* 05/08/20 08:50 ABG pO2 97.0 mmHg (80.0-100.0) 05/08/20 08:50 ABG HCO3 55.8 mmol/L (22-26) H* 05/08/20 08:50 ABG O2 Saturation 97.0 % (90-100) 05/08/20 08:50 ABG Base Excess 24.6 mmol/L (-2.0-2.0) H 05/08/20 08:50 [place] Test Pos 05/08/20 08:50 A-a Gradient 33.0 mmHg 05/08/20 08:50 FiO2 36.0 05/08/20 08:50 Blood Gas Comments Pt kirk well 05/08/20 08:50 Sodium 136 mmol/L (136-145) 05/08/20 05:41 Corrected Sodium TNP 05/08/20 05:41 Potassium 4.7 mmol/L (3.5-5.1) 05/08/20 05:41 Chloride 97 mmol/L (98-107) L 05/08/20 05:41 Carbon Dioxide 43.5 mmol/L (21-32) H* 05/08/20 05:41 BUN 26 mg/dL (7-18) H 05/08/20 05:41 Creatinine 1.22 mg/dL (0.55-1.02) H 05/08/20 05:41 Est GFR (MDRD) Af Amer 57 (>60) L 05/08/20 05:41 Est GFR (MDRD) Non-Af 47 (>60) L 05/08/20 05:41 Glucose 102 mg/dL (65-99) H 05/08/20 05:41 POC Glucose (mg/dL) 96 mg/dL (65-99) 05/08/20 05:21 Calcium 8.9 mg/dL (8.5-10.1) 05/08/20 05:41 Corrected Calcium 10.0 mg/dL (8.5-10.1) 05/07/20 13:50 Total Bilirubin 0.20 mg/dL (0.2-1.0) 05/07/20 13:50 AST 20 Units/L (15-37) 05/07/20 13:50 ALT 17 Units/L (12-78) 05/07/20 13:50 Alkaline Phosphatase 94 Units/L (46-116) 05/07/20 13:50 Total Protein 6.6 g/dL (6.4-8.2) 05/07/20 13:50 Albumin 2.7 g/dL (3.4-5.0) L 05/07/20 13:50 Globulin 3.9 g/dL (2.5-4.5) 05/07/20 13:50 Albumin/Globulin Ratio 0.7 Ratio (1.1-2.1) L 05/07/20 13:50 Specimen Type Catherized urine 05/07/20 17:30 Urine Color Yellow (YELLOW) 05/07/20 17:30 Urine Appearance Turbid (CLEAR) 05/07/20 17:30 Urine pH 6.0 (5.0 - 8.0) 05/07/20 17:30 Ur Specific [place] 1.020 (1.000-1.030) 05/07/20 17:30 Urine Protein 3+ (NEGATIVE) 05/07/20 17:30 Urine Glucose (UA) Negative (NEGATIVE) 05/07/20 17:30 Urine Ketones 1+ (NEGATIVE) 05/07/20 17:30 Urine Occult Blood 4+ (NEGATIVE) 05/07/20 17:30 Urine Nitrite Positive (NEGATIVE) 05/07/20 17:30 Urine Bilirubin Negative (NEGATIVE) 05/07/20 17:30 Urine Urobilinogen Normal (NORMAL) 05/07/20 17:30 Ur Leukocyte Esterase 3+ (NEGATIVE) 05/07/20 17:30 Urine RBC 10-20 /HPF (0-3) A 05/07/20 17:30 Urine WBC Tntc /HPF (0-5) A 05/07/20 17:30 Ur Squamous Epith Cells Negative /HPF (NEGATIVE) 05/07/20 17:30 Urine Bacteria 3+ /HPF (NEGATIVE) 05/07/20 17:30 Ur Culture Indicated? Yes/culture set up 05/07/20 17:30 Assessment/Plan (1) Hip fracture, right: (2) Chronic respiratory failure: (3) Immobility: (4) COPD (chronic obstructive pulmonary disease): (5) Diabetes mellitus: (6) Anxiety: (7) Generalized pain: Hospital Course Hospital Course: Patient was admitted with right hip fracture. Her home medications were resumed including pain medications. Patient's ABG on admission did show elevated CO2 so she was placed on BiPAP overnight. She is currently on her home oxygen [address] Teague with orthopedics was contacted and he recommended PT ruiz to see if patient is able to perform the transfer she was doing at home and if not patient can be transferred to [facility] for a surgical intervention. Patient would need surgery by tomorrow as it's almost been 48 hrs since the initial fall. Patient has chronic respiratory failure due to underlying severe COPD. She is chronically bed bound. This was discussed with the patient and she would like to proceed with non-surgical treatment with pain control and would like to go home with home health services. Patient does understand the risks and benefits associated with surgery as well as non- surgical management. Due to patient's current state including immobility and only able to do transfer from bed to commode, she would benefit from having a hospital bed at home. Patient has multiple joint pain due to osteoarthritis and is bed bound. Patient requires positioning of the body in ways not feasible with an ordinary bed and to alleviate pain. Patient would benefit from a semi-electric hospital bed for a fixed height and she does require frequent changes in body position. Discharge Medications Discharge Medications: Home Medication List cyclobenzaprine 10 mg PO BID PRN 05/07/20 [History] esomeprazole magnesium [Nexium] 40 mg PO DAILY 05/07/20 [History] insulin aspart U-100 [Novolog Flexpen U-100 Insulin] See Rx Instructions .ROUTE .COMPLEX 05/07/20 [History] insulin glargine [Basaglar KwikPen U-100 Insulin] 25 unit SUBCUT BID 05/07/20 [History] linaclotide [Linzess] 145 mcg PO DAILY 05/07/20 [History] meclizine 25 mg PO TID PRN 05/07/20 [History] olopatadine 1 drp OPHTHALMIC (EYE) DAILY PRN 05/07/20 [History] oxycodone-acetaminophen [Endocet] 1 tab PO Q4H PRN 05/07/20 [History] prednisone 5 mg PO DAILY 05/07/20 [History] theophylline 400 mg PO HS 05/07/20 [History] umeclidinium-vilanterol [Anoro Ellipta] 2 inh INHALATION DIRECTED 05/07/20 [History] verapamil 240 mg PO BID 05/07/20 [History] Prescriptions: Discharge Disposition Discharge Disposition: Home with home health services
[2020-05-08] MEDS: HumuLIN R SUBCUT PRN (12:31)
[2020-05-08 12:34] VITALS: BP 159/76
== END 2020-05-08 14:58 | disposition home health service (06) ==
LOC: MED/SURG 11:51 → ER 11:51 → MED/SURG 15:17
PROVIDERS: ADMIT Internal Medicine; ATTEND Internal Medicine
DX: M25.552 Pain in left hip; R94.4 Abnormal results of kidney function studies; B96.29 Other Escherichia coli [E. coli] as the cause of diseases classified elsewhere; S72.091A Other fracture of head and neck of right femur, initial encounter for closed fracture; I10 Essential (primary) hypertension; F41.8 Other specified anxiety disorders; E11.65 Type 2 diabetes mellitus with hyperglycemia; W18.39XA Other fall on same level, initial encounter; J44.9 Chronic obstructive pulmonary disease, unspecified; Z79.4 Long term (current) use of insulin; Z74.01 Bed confinement status; M25.562 Pain in left knee; J96.10 Chronic respiratory failure, unspecified whether with hypoxia or hypercapnia; Z99.81 Dependence on supplemental oxygen
CPT/HCPCS: 36415; 36600; 51701; 72192; 73552; 80048; 80053; 81001; 82803; 85025; 87086; 87088; 87186; 94640; 94660; 94760; 96365; 99284; A4216; A4618; A7030; G0378; J1650; J1815; J2405; J7512; J7613

== ENCOUNTER 2021-03-11 14:21 | Inpatient (IN) ==
[2021-03-11] MEDS ORDERED: NS 1000 ML 1,000 ML IV ONE (14:34)
[2021-03-11] MEDS ORDERED: ZOFRAN INJ 4 MG VIAL IVP ONE (14:34)
--- NOTE | 2021-03-11 14:37 | DR.NAUSEAF ---
HPI Time Seen Time Seen by Provider: 03/11/21 14:34 Primary Care Physician Primary Care Physician: JONNIE HPI Comment HPI Comment: arrived via EMS. n/v since yesterday. hospice. cancer. Complaints Chief Complaint:: PT C/O WEAKNESS AND VOMITING UP BLOOD. PT STATES SHE HAS BEEN VOMITING SINCE THURSDAY, BUT THE BLOOD STARTED . Source History Provided: EMS Mode of Arrival Mode of Arrival: EMS Timing Onset of Chief Complaint: 03/08/21 PMH PMH Past Medical History: Yes Past Medical History: Asthma, COPD, Diabetes and Hyperthyroidism Past Medical History Comment: TERMINAL CA Past Surgical History: Yes Surgical History: Unknown Family History History of Family Medical Conditions: Yes Family Medical History: Diabetes Mellitus, PA and Hypertension Social History Does any household member use tobacco: No Alcohol Use: None Do you use any recreational Drugs:: No Lives With: Family Lives Where: Home Infectious screening In the last 2 months have you had wt loss of >10#?: NO Have you had fever, night sweats or hemotysis?: No Have you traveled outside the country in the last 6 months?: No Isolation: Standard ROS Review of Systems Constitutional: See HPI Eyes: No Symptoms Reported ENTM: No Symptoms Reported Respiratoy: See HPI Cardiovascular: See HPI Gastrointestinal/Abdominal: See HPI Genitourinary: See HPI Neurological: No Symptoms Reported Musculoskeletal: No Symptoms Reported Integumentary: No Symptoms Reported PE Vital Signs Vitals: Temperature 98.3 F Pulse Rate 168 Respiratory Rate 35 Blood Pressure [Left Calf] 110/68 Blood Pressure [Right Calf] 126/81 Blood Pressure [Left Arm] 159/76 Blood Pressure 128/79 O2 Sat by Pulse Oximetry 79 General General Appearance: Lethargic, In Distress and Cachectic Head Head Exam: Normal Inspection, Atraumatic and Normocephalic Eyes Eye exam: PERRL and EOMI ENT ENT Exam: Mucous Membranes Dry Neck Neck Exam: Normal Inspection and Full ROM Chest Chest Inspection: Normal Inspection Respiratory Respiratory Exam: Normal Lung Sounds Bilat Cardiovascular Cardiovascular Exam: Tachycardia; negative Bradycardia and Systolic Murmur Abdominal Exam Abdominal Exam: Normal Inspection and Normal Bowel Sounds Extremities Extremities Exam: Normal Inspection Skin Skin Exam: Other (large decub ulcer rt buttock) MDM Additional Information Obtained Additional Information Obtained From: Family Additional Findings:: hospice, DNR COURSE Consultation Consultation Comments: [facility] self [employer] attendant dr sahrma- agrees to accept- [facility] Labs Reviewed Laboratory Results Reviewed?: Yes (elev lactic, pos UA) Result Diagrams: 03/11/21 14:48 03/11/21 14:48 Laboratory: WBC 13.8 X10^3/uL (3.6-10.0) H 03/11/21 14:48 RBC 3.45 X10^6/uL (3.5-5.4) L 03/11/21 14:48 Hgb 10.7 g/dL (12.0-16.0) L 03/11/21 14:48 Hct 32.2 % (36.0-47.0) L 03/11/21 14:48 MCV 93.1 fL (80.0-100.0) 03/11/21 14:48 MCH 31.1 pg (27.0-34.0) 03/11/21 14:48 MCHC 33.3 g/dL (33.0-35.0) 03/11/21 14:48 RDW 13.0 % (11.6-16.5) 03/11/21 14:48 Plt Count 593 X10^3/uL (150.0-450.0) H 03/11/21 14:48 Plt Count Comment Increased (ADEQUATE) A 03/11/21 14:48 MPV 6.4 fL (7.4-11.0) L 03/11/21 14:48 Neut % (Auto) 91.5 % (42.0-75.0) H 03/11/21 14:48 Lymph % (Auto) 4.7 % (21.0-51.0) L 03/11/21 14:48 [place] % (Auto) 3.6 % (0.0-13.0) 03/11/21 14:48 Eos % (Auto) 0.0 % (0.9-2.9) L 03/11/21 14:48 Baso % (Auto) 0.2 % (0.2-1.0) 03/11/21 14:48 Neut # (Auto) 12.6 x10^3/uL (2.2-4.8) H 03/11/21 14:48 Lymph # (Auto) 0.6 X10^3/uL (1.3-2.9) L 03/11/21 14:48 [place] # (Auto) 0.5 x10^3/uL (0.3-0.8) 03/11/21 14:48 Eos # (Auto) 0.0 x10^3/uL (0.0-0.2) 03/11/21 14:48 Baso # (Auto) 0.0 X10^3/uL (0.0-0.1) 03/11/21 14:48 Absolute Nucleated RBC 0.0 /100WBC 03/11/21 14:48 Total Counted 100 03/11/21 14:48 Neutrophils % (Manual) 91 % (39-76) H 03/11/21 14:48 Band Neutrophils % 6 % (0-10) 03/11/21 14:48 Lymphocytes % (Manual) 2 % (13-43) L 03/11/21 14:48 Monocytes % (Manual) 1 % (4-9) L 03/11/21 14:48 Plt Morphology Comment Normal (NORMAL) 03/11/21 14:48 RBC Morphology Abnormal (NORMAL) A 03/11/21 14:48 Hypochromasia Slight A 03/11/21 14:48 Anisocytosis 1+ A 03/11/21 14:48 Sodium 138 mmol/L (136-145) 03/11/21 14:48 Corrected Sodium 141 mmol/L (136-145) 03/11/21 14:48 Potassium 3.7 mmol/L (3.5-5.1) 03/11/21 14:48 Chloride 94 mmol/L (98-107) L 03/11/21 14:48 Carbon Dioxide 42.6 mmol/L (21-32) H* 03/11/21 14:48 BUN 36 mg/dL (7-18) H 03/11/21 14:48 Creatinine 1.14 mg/dL (0.55-1.02) H 03/11/21 14:48 Est GFR (MDRD) Af Amer > 60 (>60) 03/11/21 14:48 Est GFR (MDRD) Non-Af 51 (>60) L 03/11/21 14:48 Glucose 218 mg/dL (65-99) H 03/11/21 14:48 Lactic Acid 2.2 mmol/L (0.4-2.0) H 03/11/21 14:48 Calcium 11.8 mg/dL (8.5-10.1) H 03/11/21 14:48 Corrected Calcium 13.1 mg/dL (8.5-10.1) H 03/11/21 14:48 Total Bilirubin 0.30 mg/dL (0.2-1.0) 03/11/21 14:48 AST 16 Units/L (15-37) 03/11/21 14:48 ALT 15 Units/L (12-78) 03/11/21 14:48 Alkaline Phosphatase 93 Units/L (46-116) 03/11/21 14:48 Total Protein 7.4 g/dL (6.4-8.2) 03/11/21 14:48 Albumin 2.4 g/dL (3.4-5.0) L 03/11/21 14:48 Globulin 5.0 g/dL (2.5-4.5) H 03/11/21 14:48 Albumin/Globulin Ratio 0.5 Ratio (1.1-2.1) L 03/11/21 14:48 Specimen Type Catherized urine 03/11/21 16:05 Urine Color Dark yellow (YELLOW) 03/11/21 16:05 Urine Appearance Cloudy (CLEAR) 03/11/21 16:05 Urine pH 8.0 (5.0 - 8.0) 03/11/21 16:05 Ur Specific [place] 1.015 (1.000-1.030) 03/11/21 16:05 Urine Protein 3+ (NEGATIVE) 03/11/21 16:05 Urine Glucose (UA) Negative (NEGATIVE) 03/11/21 16:05 Urine Ketones 1+ (NEGATIVE) 03/11/21 16:05 Urine Occult Blood 5+ (NEGATIVE) 03/11/21 16:05 Urine Nitrite Positive (NEGATIVE) 03/11/21 16:05 Urine Bilirubin Negative (NEGATIVE) 03/11/21 16:05 Urine Urobilinogen Normal (NORMAL) 03/11/21 16:05 Ur Leukocyte Esterase 3+ (NEGATIVE) 03/11/21 16:05 Urine RBC 30-50 /HPF (0-3) A 03/11/21 16:05 Urine WBC 20-30 /HPF (0-5) A 03/11/21 16:05 Ur Squamous Epith Cells Rare /HPF (NEGATIVE) 03/11/21 16:05 Amorphous Sediment 4+ /HPF (NEGATIVE) 03/11/21 16:05 Urine Bacteria 4+ /HPF (NEGATIVE) 03/11/21 16:05 Ur Culture Indicated? Yes/culture set up 03/11/21 16:05 SARS CoV-2 RNA Rapid TINY Negative (NEGATIVE) 03/11/21 17:42 Opioid Opioid Risk Tool Age (Andrew box if 16-45): No History of Preadolescent Sexual Abuse: No Total: 0 Total Score Risk Category: Low Risk Copyright: Gilson RICHARDSON predicting aberrant behaviors Diagnosis Discharge Problem: Sepsis, Acute UTI
[2021-03-11] MEDS ORDERED: NS 1000 ML 1,000 ML ONE (14:38)
[2021-03-11] MEDS ORDERED: ZOFRAN INJ 4 MG VIAL ONE (14:38)
[2021-03-11 14:59] LABS: BASOPHILS % (AUTO) 0.2 % (0.2-1.0); HEMATOCRIT 32.2 % (36.0-47.0); HEMOGLOBIN 10.7 g/dL (12.0-16.0); LYMPHOCYTES # (AUTO) 0.6 X10^3/uL (1.3-2.9); LYMPHOCYTES % (AUTO) 4.7 % (21.0-51.0); MEAN CORPUSCULAR HEMOGLOBIN 31.1 pg (27.0-34.0); MEAN CORPUSCULAR HGB CONC 33.3 g/dL (33.0-35.0); MEAN CORPUSCULAR VOLUME 93.1 fL (80.0-100.0); MEAN PLATELET VOLUME 6.4 fL (7.4-11.0); MONOCYTES # (AUTO) 0.5 x10^3/uL (0.3-0.8); MONOCYTES % (AUTO) 3.6 % (0.0-13.0); NEUTROPHILS # (AUTO) 12.6 x10^3/uL (2.2-4.8); NEUTROPHILS % (AUTO) 91.5 % (42.0-75.0); PLATELET COUNT 593 X10^3/uL (150.0-450.0); RED BLOOD COUNT 3.45 X10^6/uL (3.5-5.4); WHITE BLOOD COUNT 13.8 X10^3/uL (3.6-10.0)
[2021-03-11 15:12] LABS: ALANINE AMINOTRANSFERASE 15 Units/L (12-78); ALBUMIN 2.4 g/dL (3.4-5.0); ALKALINE PHOSPHATASE 93 Units/L (46-116); ASPARTATE AMINO TRANSFERASE 16 Units/L (15-37); BLOOD UREA NITROGEN 36 mg/dL (7-18); CALCIUM 11.8 mg/dL (8.5-10.1); CHLORIDE 94 mmol/L (98-107); COR CA(FOR HYPOALB) 13.1 mg/dL (8.5-10.1); COR NA(FOR HYPERGLY) 141 mmol/L (136-145); CREATININE 1.14 mg/dL (0.55-1.02); SODIUM 138 mmol/L (136-145); TOTAL PROTEIN 7.4 g/dL (6.4-8.2); eGFR NON BLACK RACES 51 (>60)
[2021-03-11 15:14] LABS: ANISOCYTOSIS 1+; BAND NEUTROPHILS % 6 % (0-10); HYPOCHROMASIA SLIGHT; PLATELET MORPHOLOGY COMMENT NORMAL (NORMAL)
[2021-03-11 15:19] LABS: LACTIC ACID 2.2 mmol/L (0.4-2.0)
[2021-03-11 15:21] LABS: CARBON DIOXIDE 42.6 mmol/L (21-32)
--- NOTE | 2021-03-11 15:25 | RAD ---
HISTORYCOUGHSTUDYCHEST, 1 VIEWCOMPARISONPortable chest December 07, 2020FINDINGSThe trachea is midline. The cardiac silhouette is unremarkable . The lungs are hyperexpanded but clear without focal infiltrate or effusion. The bony thorax is unremarkable.IMPRESSIONThe lungs are hyperexpanded but clear and unchanged from prior film December 07, 2020.Electronically signed by: CHARANJIT AKBAR (March 11, 2021 15:23:53)
[2021-03-11 16:15] LABS: BILIRUBIN,URINE NEGATIVE (NEGATIVE); BLOOD/HEMOGLOBIN,URINE 5+ (NEGATIVE); GLUCOSE, URINE NEGATIVE (NEGATIVE); KETONES,URINE 1+ (NEGATIVE); LEUKOCYTE ESTERASE ,URINE 3+ (NEGATIVE); NITRITES,URINE POSITIVE (NEGATIVE); PROTEIN,URINE 3+ (NEGATIVE); UROBILINOGEN,URINE NORMAL (NORMAL)
[2021-03-11 16:18] LABS: APPEARANCE,URINE CLOUDY (CLEAR); COLOR,URINE DARK YELLOW (YELLOW)
[2021-03-11 16:35] LABS: AMORPHOUS SEDIMENT,UR 4+ /HPF (NEGATIVE); BACTERIA,URINE 4+ /HPF (NEGATIVE); RBC,URINE 30-50 /HPF (0-3); SQUAMOUS EPITHELIAL CELL,UR RARE /HPF (NEGATIVE)
[2021-03-11] MEDS ORDERED: ADENOCARD INJ 6 MG ONE (16:41)
[2021-03-11] MEDS ORDERED: ADENOCARD INJ 6 MG IVP ONE ×2 (16:51)
[2021-03-11] MEDS ORDERED: ROCEPHIN 1 GRAM IV PREMIX 1 G/50 ML IV.SOLN. IV ONE ×2 (17:14→17:19)
[2021-03-11] MEDS ORDERED: VANCOMYCIN IV *PREMIX 1 G/200 ML BAG 1 G/200 ML PIGGYBACK IV ONE ×2 (17:26→17:36)
[2021-03-11] MEDS ORDERED: HumuLIN R SC PRN (20:35)
[2021-03-11] MEDS ORDERED: XANAX PO PRN (20:36)
[2021-03-11] MEDS ORDERED: OXYCODONE ACETAMINOPHEN PO PRN (20:36)
[2021-03-11] MEDS ORDERED: AMBIEN PO SCH (21:00)
[2021-03-11] MEDS: NS 1000 ML 1,000 ML IV SCH (21:43)
[2021-03-11] MEDS: MERREM VIAL 500 MG in NS 100 ML IV + SPIKE MINIBAG* 100 ML IV SCH (21:44)
[2021-03-11] MEDS: TOPROL XL PO SCH (21:44)
[2021-03-11] MEDS: PROTONIX INJ 40 MG VIAL IVP SCH (21:44)
[2021-03-12 04:38] LABS: BASOPHILS # (AUTO) 0.1 X10^3/uL (0.0-0.1); BASOPHILS % (AUTO) 0.4 % (0.2-1.0); HEMATOCRIT 25.7 % (36.0-47.0); HEMOGLOBIN 8.5 g/dL (12.0-16.0); LYMPHOCYTES # (AUTO) 1.1 X10^3/uL (1.3-2.9); LYMPHOCYTES % (AUTO) 7.9 % (21.0-51.0); MEAN CORPUSCULAR HGB CONC 33.3 g/dL (33.0-35.0); MEAN CORPUSCULAR VOLUME 93.1 fL (80.0-100.0); MEAN PLATELET VOLUME 6.8 fL (7.4-11.0); MONOCYTES # (AUTO) 0.6 x10^3/uL (0.3-0.8); MONOCYTES % (AUTO) 4.6 % (0.0-13.0); NEUTROPHILS # (AUTO) 12.1 x10^3/uL (2.2-4.8); NEUTROPHILS % (AUTO) 87.1 % (42.0-75.0); PLATELET COUNT 458 X10^3/uL (150.0-450.0); RED BLOOD COUNT 2.76 X10^6/uL (3.5-5.4); RED CELL DISTRIBUTION WIDTH 13.1 % (11.6-16.5); WHITE BLOOD COUNT 13.9 X10^3/uL (3.6-10.0)
[2021-03-12 04:45] LABS: ALANINE AMINOTRANSFERASE 12 Units/L (12-78); ALKALINE PHOSPHATASE 69 Units/L (46-116); ASPARTATE AMINO TRANSFERASE 16 Units/L (15-37); BLOOD UREA NITROGEN 33 mg/dL (7-18); CARBON DIOXIDE 37.6 mmol/L (21-32); CHLORIDE 100 mmol/L (98-107); COR CA(FOR HYPOALB) 11.6 mg/dL (8.5-10.1); COR NA(FOR HYPERGLY) 141 mmol/L (136-145); CREATININE 0.89 mg/dL (0.55-1.02); SODIUM 140 mmol/L (136-145); TOTAL PROTEIN 6.3 g/dL (6.4-8.2); eGFR NON BLACK RACES > 60 (>60)
[2021-03-12] MEDS: MERREM VIAL 500 MG in NS 100 ML IV + SPIKE MINIBAG* 100 ML IV SCH ×3 (05:34→21:40)
[2021-03-12] MEDS ORDERED: PERCOCET TAB 5/325 MG PO PRN (07:26)
--- NOTE | 2021-03-12 08:25 | DR.H&P ---
H&P History & Physical for Day of: H&P Date: 03/12/21 Chief Complaint Chief Complaint: Nausea, Vomiting Dysuria Allergies Allergies Allergy/AdvReac Type Severity Reaction Status Date / Time ceftriaxone [From Rocephin] Allergy Verified 01/22/18 15:54 dexamethasone [From Decadron] Allergy Verified 01/22/18 15:54 Penicillins Allergy Verified 01/22/18 15:54 Sulfa (Sulfonamide Allergy Verified 01/22/18 15:54 Antibiotics) [SULFA] History of Present Illness History of Present Illness: Pt is a 65 year old female past medical history Failure to thrive, COPD, HTN, DMT2, Chronic right hip fracture, and chronic decubitus ulcer presenting after having frequent episodes of large amounts of dark emesis. She states symptoms started over the weekend and associated with nausea and some abdominal pain. She also has had some dysuria. At home she was under the care of [facility] for failure to thrive. Labs/imaging: Wbc 13.9, Hgb 8.5, Plt 458, Na 140, K 3.6, Creatinine 0.89, Glucose 137, UA consistent with infection, Urine culture pending, COVID-19 negative, CXR: The lungs are hyperexpanded but clear and unchanged from prior film December 07, 2020. In the ED, pt was noted to have SVT, and was given adenosine x 2 that helped control heart rate. She also received IVF bolus 1L NS, Rocephin and Vancomycin x 1. Pt was placed NPO, started on IVF NS@125ml/h, antibiotics Meropenem due to drug allergies and previous urine culture results of E.coli, IV Protonix 40mg BID. This morning pt has not had any emesis but is feeling nauseous. Previous emesis may be related to erosive gastritis or gastric/peptic ulcer. Will trend Hgb, can start on CLD, add pepcid and carafate, IV Zofran for nausea. Will consult Dr Steiner-general surgery for evaluation and recommendation. Restart home medications. Order KUB. Continue to closely monitor and follow up labs/imaging in the morning. Past Medical History Past Medical History: Asthma, COPD, Diabetes and Hyperthyroidism Additional Medical History: Sleep Apnea, Hypercapnea, Gastrointestinal Bleed, Constipation, Back Pain, Diabetic Neuropathy, Previous Blood Transfusion Past Surgical History Surgical History: Unknown Additional Surgical History: Tubaligation Family History Family Medical History: Diabetes Mellitus, VT and Hypertension Social History Does any household member use tobacco: No Alcohol Use: None Medications Home Medications: ceftriaxone [From Rocephin] Allergy (Verified 01/22/18 15:54) dexamethasone [From Decadron] Allergy (Verified 01/22/18 15:54) Penicillins Allergy (Verified 01/22/18 15:54) Sulfa (Sulfonamide Antibiotics) [SULFA] Allergy (Verified 01/22/18 15:54) Labs Result Diagrams: 03/12/21 04:20 03/12/21 04:20 Labs: Laboratory WBC 13.9 X10^3/uL (3.6-10.0) H 03/12/21 04:20 RBC 2.76 X10^6/uL (3.5-5.4) L 03/12/21 04:20 Hgb 8.5 g/dL (12.0-16.0) L D 03/12/21 04:20 Hct 25.7 % (36.0-47.0) L 03/12/21 04:20 MCV 93.1 fL (80.0-100.0) 03/12/21 04:20 MCH 31.0 pg (27.0-34.0) 03/12/21 04:20 MCHC 33.3 g/dL (33.0-35.0) 03/12/21 04:20 RDW 13.1 % (11.6-16.5) 03/12/21 04:20 Plt Count 458 X10^3/uL (150.0-450.0) H 03/12/21 04:20 Plt Count Comment Increased (ADEQUATE) A 03/11/21 14:48 MPV 6.8 fL (7.4-11.0) L 03/12/21 04:20 Neut % (Auto) 87.1 % (42.0-75.0) H 03/12/21 04:20 Lymph % (Auto) 7.9 % (21.0-51.0) L 03/12/21 04:20 [place] % (Auto) 4.6 % (0.0-13.0) 03/12/21 04:20 Eos % (Auto) 0.0 % (0.9-2.9) L 03/12/21 04:20 Baso % (Auto) 0.4 % (0.2-1.0) 03/12/21 04:20 Neut # (Auto) 12.1 x10^3/uL (2.2-4.8) H 03/12/21 04:20 Lymph # (Auto) 1.1 X10^3/uL (1.3-2.9) L 03/12/21 04:20 [place] # (Auto) 0.6 x10^3/uL (0.3-0.8) 03/12/21 04:20 Eos # (Auto) 0.0 x10^3/uL (0.0-0.2) 03/12/21 04:20 Baso # (Auto) 0.1 X10^3/uL (0.0-0.1) 03/12/21 04:20 Absolute Nucleated RBC 0.0 /100WBC 03/12/21 04:20 Total Counted 100 03/11/21 14:48 Neutrophils % (Manual) 91 % (39-76) H 03/11/21 14:48 Band Neutrophils % 6 % (0-10) 03/11/21 14:48 Lymphocytes % (Manual) 2 % (13-43) L 03/11/21 14:48 Monocytes % (Manual) 1 % (4-9) L 03/11/21 14:48 Plt Morphology Comment Normal (NORMAL) 03/11/21 14:48 RBC Morphology Abnormal (NORMAL) A 03/11/21 14:48 Hypochromasia Slight A 03/11/21 14:48 Anisocytosis 1+ A 03/11/21 14:48 Sodium 140 mmol/L (136-145) 03/12/21 04:20 Corrected Sodium 141 mmol/L (136-145) 03/12/21 04:20 Potassium 3.6 mmol/L (3.5-5.1) 03/12/21 04:20 Chloride 100 mmol/L (98-107) 03/12/21 04:20 Carbon Dioxide 37.6 mmol/L (21-32) H 03/12/21 04:20 BUN 33 mg/dL (7-18) H 03/12/21 04:20 Creatinine 0.89 mg/dL (0.55-1.02) 03/12/21 04:20 Est GFR (MDRD) Af Amer > 60 (>60) 03/12/21 04:20 Est GFR (MDRD) Non-Af > 60 (>60) 03/12/21 04:20 Glucose 137 mg/dL (65-99) H 03/12/21 04:20 POC Glucose (mg/dL) 131 mg/dL (65-99) H 03/11/21 21:42 Lactic Acid 0.9 mmol/L (0.4-2.0) 03/12/21 04:20 Calcium 10.0 mg/dL (8.5-10.1) 03/12/21 04:20 Corrected Calcium 11.6 mg/dL (8.5-10.1) H 03/12/21 04:20 Iron 20 ug/dL (50-175) L 03/11/21 14:48 Transferrin 183 mg/dL (202-364) L 03/11/21 14:48 Ferritin 119 ng/mL (8-252) 03/11/21 14:48 Total Bilirubin 0.20 mg/dL (0.2-1.0) 03/12/21 04:20 AST 16 Units/L (15-37) 03/12/21 04:20 ALT 12 Units/L (12-78) 03/12/21 04:20 Alkaline Phosphatase 69 Units/L (46-116) 03/12/21 04:20 Total Protein 6.3 g/dL (6.4-8.2) L 03/12/21 04:20 Albumin 2.0 g/dL (3.4-5.0) L 03/12/21 04:20 Globulin 4.3 g/dL (2.5-4.5) 03/12/21 04:20 Albumin/Globulin Ratio 0.5 Ratio (1.1-2.1) L 03/12/21 04:20 Vitamin B12 796 pg/mL (193-986) 03/11/21 14:48 Folate 15.9 ng/mL (>8.6) 03/11/21 14:48 Specimen Type Catherized urine 03/11/21 16:05 Urine Color Dark yellow (YELLOW) 03/11/21 16:05 Urine Appearance Cloudy (CLEAR) 03/11/21 16:05 Urine pH 8.0 (5.0 - 8.0) 03/11/21 16:05 Ur Specific [place] 1.015 (1.000-1.030) 03/11/21 16:05 Urine Protein 3+ (NEGATIVE) 03/11/21 16:05 Urine Glucose (UA) Negative (NEGATIVE) 03/11/21 16:05 Urine Ketones 1+ (NEGATIVE) 03/11/21 16:05 Urine Occult Blood 5+ (NEGATIVE) 03/11/21 16:05 Urine Nitrite Positive (NEGATIVE) 03/11/21 16:05 Urine Bilirubin Negative (NEGATIVE) 03/11/21 16:05 Urine Urobilinogen Normal (NORMAL) 03/11/21 16:05 Ur Leukocyte Esterase 3+ (NEGATIVE) 03/11/21 16:05 Urine RBC 30-50 /HPF (0-3) A 03/11/21 16:05 Urine WBC 20-30 /HPF (0-5) A 03/11/21 16:05 Ur Squamous Epith Cells Rare /HPF (NEGATIVE) 03/11/21 16:05 Amorphous Sediment 4+ /HPF (NEGATIVE) 03/11/21 16:05 Urine Bacteria 4+ /HPF (NEGATIVE) 03/11/21 16:05 Ur Culture Indicated? Yes/culture set up 03/11/21 16:05 SARS CoV-2 RNA Rapid TINY Negative (NEGATIVE) 03/11/21 17:42 Review of Systems Constitutional: Weakness; denies Fever and Chills Eyes: No Symptoms Reported ENT: No Symptoms Reported Respiratory: No Symptoms Reported Cardiovascular: No Symptoms Reported Gastrointestinal: Nausea, Vomiting and Abdominal Pain; denies Diarrhea and Constipation Genitourinary: No Symptoms Reported Musculoskeletal: No Symptoms Reported Skin: Other (decubitus ulcer ) Neurological: No Symptoms Reported Physical Exam Vital Signs: Temperature 99.3 F Pulse Rate 116 Respiratory Rate 20 Blood Pressure [Left Calf] 110/68 Blood Pressure [Right Calf] 126/81 Blood Pressure [Left Arm] 159/76 Blood Pressure 134/71 O2 Sat by Pulse Oximetry 100 Oriented: Normal Eyes: Normal Ear: Normal Nose: Normal Throat: Normal Respiratory: Diminished Throughout Cardiovascular: Tachycardia : Normal Auscultation: Bowel Sounds: Normal Palpation: Normal Tenderness: Normal Skin: Other (decubitus ulcer right buttocks) Musculoskeletal: Normal Psychiatric: Normal Mood Description: Calm and Appropriate Affect: Normal Speech Pattern: Clear and Appropriate Assessment/Plan (1) Acute UTI: Status: Acute Plan: Urine culture pending Antibiotics:Meropenem (2) Intractable nausea and vomiting: Status: Acute Review H&P Reviewed: Yes Patient was examined?: Yes
[2021-03-12] MEDS: NS 1000 ML 1,000 ML IV SCH ×2 (08:26→17:26)
[2021-03-12] MEDS ORDERED: ZOFRAN INJ 4 MG VIAL ONE (08:28)
[2021-03-12] MEDS ORDERED: ROXICODONE TAB 5 MG PO PRN (08:29)
[2021-03-12] MEDS: ZOFRAN INJ 4 MG VIAL IVP PRN ×2 (08:51→22:17)
[2021-03-12] MEDS: PROTONIX INJ 40 MG VIAL IVP SCH ×2 (08:51→21:40)
[2021-03-12] MEDS: TOPROL XL PO SCH (09:40)
[2021-03-12] MEDS: PEPCID 20 MG IV PREMIX* 20 MG/50 ML BAG IV SCH ×2 (10:23→21:40)
[2021-03-12] MEDS ORDERED: CARAFATE ORAL SUSP PO SCH (11:30)
--- NOTE | 2021-03-12 12:37 | RAD ---
HISTORYABDOMINAL PAINSTUDYKUB x-ray abdomen one viewCOMPARISONNoneFINDINGSModerate constipation in the right-side of the colon. Mild small bowel air is seen without dilation. Moderate lumbar scoliosis. Possible moderate compression fracture of L3. Vascular calcifications are seen. Right femoral neck appears irregular. There is a prior fracture of the right femoral neck. It may be unhealed or healed with deformity.IMPRESSIONDeformity of the right femoral neck is concerning for possible unhealed fracture but could possibly be healed fracture with deformity.Moderate constipation in the right-side of the colon.Electronically signed by: Nito Rivas (March 12, 2021 12:35:45)
[2021-03-12] MEDS ORDERED: APRESOLINE INJ 20 MG VIAL IVP PRN (13:46)
[2021-03-12] MEDS: MORPHINE SULFATE INJ 2 MG INJ IVP PRN ×3 (14:16→22:17)
[2021-03-12] MEDS: D50W ABBOJECT SYR IV PRN (21:15)
[2021-03-12] MEDS: VALIUM INJ IVP PRN (21:46)
[2021-03-13] MEDS: D50W ABBOJECT SYR IV PRN (01:08)
[2021-03-13] MEDS ORDERED: LOPRESSOR INJ 5 MG AMP ONE (01:19)
[2021-03-13] MEDS: LOPRESSOR INJ 5 MG AMP IVP SCH ×4 (01:32→21:06)
[2021-03-13] MEDS ORDERED: CALAN (PLAIN) 120 MG PO ONE (01:45)
[2021-03-13] MEDS ORDERED: CALAN SR 120 MG PO ONE (01:50)
[2021-03-13] MEDS: MORPHINE SULFATE INJ 2 MG INJ IVP PRN ×4 (02:11→23:19)
[2021-03-13] MEDS: NS 1000 ML 1,000 ML IV SCH ×2 (04:01→07:18)
[2021-03-13 04:27] LABS: BASOPHILS % (AUTO) 0.2 % (0.2-1.0); HEMATOCRIT 24.9 % (36.0-47.0); HEMOGLOBIN 8.3 g/dL (12.0-16.0); LYMPHOCYTES # (AUTO) 1.4 X10^3/uL (1.3-2.9); LYMPHOCYTES % (AUTO) 10.3 % (21.0-51.0); MEAN CORPUSCULAR HEMOGLOBIN 30.9 pg (27.0-34.0); MEAN CORPUSCULAR HGB CONC 33.4 g/dL (33.0-35.0); MEAN CORPUSCULAR VOLUME 92.6 fL (80.0-100.0); MEAN PLATELET VOLUME 6.4 fL (7.4-11.0); MONOCYTES # (AUTO) 0.7 x10^3/uL (0.3-0.8); NEUTROPHILS # (AUTO) 11.1 x10^3/uL (2.2-4.8); NEUTROPHILS % (AUTO) 84.5 % (42.0-75.0); PLATELET COUNT 485 X10^3/uL (150.0-450.0); RED BLOOD COUNT 2.69 X10^6/uL (3.5-5.4); RED CELL DISTRIBUTION WIDTH 12.9 % (11.6-16.5); WHITE BLOOD COUNT 13.2 X10^3/uL (3.6-10.0)
[2021-03-13 04:41] LABS: ALANINE AMINOTRANSFERASE 12 Units/L (12-78); ALBUMIN 2.1 g/dL (3.4-5.0); ALKALINE PHOSPHATASE 60 Units/L (46-116); ASPARTATE AMINO TRANSFERASE 19 Units/L (15-37); BLOOD UREA NITROGEN 20 mg/dL (7-18); CALCIUM 9.2 mg/dL (8.5-10.1); CARBON DIOXIDE 35.9 mmol/L (21-32); CHLORIDE 103 mmol/L (98-107); COR CA(FOR HYPOALB) 10.7 mg/dL (8.5-10.1); CREATININE 0.75 mg/dL (0.55-1.02); SODIUM 144 mmol/L (136-145); TOTAL PROTEIN 6.2 g/dL (6.4-8.2); eGFR NON BLACK RACES > 60 (>60)
[2021-03-13] MEDS ORDERED: MICRO K EXTEN CAP 10 MEQ PO PRN (04:43)
[2021-03-13] MEDS ORDERED: KLOR-CON PO PRN (04:43)
[2021-03-13] MEDS ORDERED: POTASSIUM CHL 40 MEQ/NS 0.45% 500 ML IV PRN (04:43)
[2021-03-13] MEDS ORDERED: POTASSIUM CHL 60 MEQ/NS 0.45% 500 ML IV PRN (04:43)
[2021-03-13] MEDS ORDERED: K-DUR TAB 20 MEQ PO PRN (04:43)
[2021-03-13] MEDS ORDERED: POTASSIUM CHLORIDE LIQ 20 MEQ UDC PO PRN (04:43)
[2021-03-13] MEDS: MERREM VIAL 500 MG in NS 100 ML IV + SPIKE MINIBAG* 100 ML IV SCH ×3 (05:10→21:10)
[2021-03-13] MEDS: MAGNESIUM SULFATE 1 GRAM/100 mL PREMIX 1 GM/100 ML BAG IV PRN ×2 (06:15→07:18)
[2021-03-13] MEDS: PEPCID 20 MG IV PREMIX* 20 MG/50 ML BAG IV SCH ×2 (09:41→20:00)
[2021-03-13] MEDS: PROTONIX INJ 40 MG VIAL IVP SCH ×2 (09:41→21:03)
--- NOTE | 2021-03-13 12:41 | CT ---
HISTORYELEVATED CEA, CONFUSIONSTUDYBRAIN W WO CONCOMPARISONCT brain from 12/07/2020.TECHNIQUEMultiple axial images of the head were performed from the skullbase to the vertex using standard departmental protocol. Sagittal and coronal reformatted images were performed. Dose reduction techniques including Automated Exposure Control (AEC) and adjustment of mA and kV were utilized. Exam performed with and without contrast.FINDINGSPatient is tilted within the scanner. The lateral ventricles and basilar cisterns are patent.No parenchymal mass or hematoma. Sanchez-white differentiation appears acutely preserved. Mild low attenuation change in the subcortical and deep supratentorial white matter. No pathologic enhancement identified post-contrast.No extra-axial collection.The globes are intact.The paranasal sinuses and mastoid air cells are clear.The calvarium is intact.IMPRESSIONNo acute intracranial abnormality. Mild chronic small vessel disease. No pathologic enhancement identified.Electronically signed by: Phi Boone (March 13, 2021 12:38:26)
--- NOTE | 2021-03-13 12:58 | CT ---
HISTORYAbdominal pain, weight loss, elevated CEASTUDYCT abdomen pelvis with contrastTechnique: Axial post-contrast images with coronal and sagittal reformats. Dose reduction procedures were used with mA/kv adjusted for body size.COMPARISONNoneFINDINGSExamination of the lung bases demonstrated multiple bilateral 2-5 mm pulmonary nodules. These could be granulomatous or neoplastic in origin. Pulmonary metastatic disease is not excluded. Bilateral small pleural effusions are identified. The liver, spleen, right adrenal gland, and pancreas appear within normal limits. There is nodular enlargement of the left adrenal gland which is indeterminate in origin. Evaluation with MRI may be indicated. No opaque stones are present within the gallbladder. Several small benign hepatic cysts are identified. The kidneys are unobstructed and without stones. Multiple right renal cysts are present. No ureteral calculi are identified. The appendix is normal. Calcific atherosclerotic changes present in a nondilated abdominal aorta and bilateral iliac vessels. No intraperitoneal or retroperitoneal lymphadenopathy of significance is identified. There are no findings suggestive of enteritis, colitis or diverticulitis. There is diverticulosis of the descending and sigmoid colon present. Examination of the pelvis demonstrated no evidence for pelvic masses, pelvic fluid, or pelvic lymphadenopathy. There is a Guerrero catheter draining the bladder which demonstrates a somewhat thickened wall which could be due to inflammation, in lies likely but not impossible due to neoplasm. Alternatively this finding could be spurious and due to incomplete distension. No lytic or blastic skeletal lesions of significance are identified. Osteopenia is present.IMPRESSIONMultiple bilateral 2-5 mm pulmonary nodules more prominent in the right than the left lobe. These could represent granulomas however the possibility of pulmonary metastatic disease is not excluded. Chest CT with contrast is recommended for further evaluationBilateral small pleural effusionsNodular enlargement of the left adrenal gland which is indeterminate in origin. MRI may be of further diagnostic value in distinguishing between adenomatous change and more significant neoplasm.Mildly thickened bladder wall which could be due to inflammation, less likely neoplasm or could be a spurious finding due to incomplete distension as the bladder is drained by a Guerrero catheter.Electronically signed by: NAOMIE DICKINSON (March 13, 2021 12:56:47)
[2021-03-13] MEDS: D5W 1000 ML IV 1,000 ML IV SCH ×3 (13:41→22:41)
--- NOTE | 2021-03-13 16:06 | DR.PROGNOT ---
Hospital Progress Notes - Progress Note for Day of: Progress Note Date: 03/13/21 - Chief Complaint Chief Complaint: tolerating small amount of mechanical soft diet with few episodes of coughing . no vomiting or active bleeding . having tachycardia and fluctuations of BP . CT showed lung nodules and samll effusion. K was low 2.4 . - Past Medical Family Social History Allergies: Allergies ceftriaxone [From Rocephin] Allergy (Verified 01/22/18 15:54) dexamethasone [From Decadron] Allergy (Verified 01/22/18 15:54) Penicillins Allergy (Verified 01/22/18 15:54) Sulfa (Sulfonamide Antibiotics) [SULFA] Allergy (Verified 01/22/18 15:54) - Review Of Systems ROS: No change since H&P - Vital Signs Vital Signs: Temperature 97.9 F Pulse Rate 91 Respiratory Rate 19 Blood Pressure [Left Calf] 110/68 Blood Pressure [Right Calf] 126/81 Blood Pressure [Left Arm] 159/76 Blood Pressure 153/120 O2 Sat by Pulse Oximetry 100 - Physical Exam Oriented: Normal Eyes: Normal Ear: Normal Nose: Normal Throat: Normal Cardiovascular: Tachycardia : Normal GI:Auscultation: Normal GI:Palpation: Normal GI: Tenderness: Normal Skin: Other (decubitus ulcer right buttocks) Musculoskeletal: Normal Psychiatric: Normal Mood Description: Calm, Appropriate Affect: Normal Speech Pattern: Clear, Appropriate - Laboratory and Diagnostics Result Diagrams: 03/13/21 04:10 03/13/21 04:10 Labs: 03/11/21 16:05 Urine,Catheterized Urine Culture - Final Escherichia Coli 03/11/21 21:00 Buttock Wound Culture - Final Escherichia Coli Laboratory WBC 13.2 X10^3/uL (3.6-10.0) H 03/13/21 04:10 RBC 2.69 X10^6/uL (3.5-5.4) L 03/13/21 04:10 Hgb 8.3 g/dL (12.0-16.0) L 03/13/21 04:10 Hct 24.9 % (36.0-47.0) L 03/13/21 04:10 MCV 92.6 fL (80.0-100.0) 03/13/21 04:10 MCH 30.9 pg (27.0-34.0) 03/13/21 04:10 MCHC 33.4 g/dL (33.0-35.0) 03/13/21 04:10 RDW 12.9 % (11.6-16.5) 03/13/21 04:10 Plt Count 485 X10^3/uL (150.0-450.0) H 03/13/21 04:10 Plt Count Comment Increased (ADEQUATE) A 03/11/21 14:48 MPV 6.4 fL (7.4-11.0) L 03/13/21 04:10 Neut % (Auto) 84.5 % (42.0-75.0) H 03/13/21 04:10 Lymph % (Auto) 10.3 % (21.0-51.0) L 03/13/21 04:10 [place] % (Auto) 5.0 % (0.0-13.0) 03/13/21 04:10 Eos % (Auto) 0.0 % (0.9-2.9) L 03/13/21 04:10 Baso % (Auto) 0.2 % (0.2-1.0) 03/13/21 04:10 Neut # (Auto) 11.1 x10^3/uL (2.2-4.8) H 03/13/21 04:10 Lymph # (Auto) 1.4 X10^3/uL (1.3-2.9) 03/13/21 04:10 [place] # (Auto) 0.7 x10^3/uL (0.3-0.8) 03/13/21 04:10 Eos # (Auto) 0.0 x10^3/uL (0.0-0.2) 03/13/21 04:10 Baso # (Auto) 0.0 X10^3/uL (0.0-0.1) 03/13/21 04:10 Absolute Nucleated RBC 0.0 /100WBC 03/13/21 04:10 Total Counted 100 03/11/21 14:48 Neutrophils % (Manual) 91 % (39-76) H 03/11/21 14:48 Band Neutrophils % 6 % (0-10) 03/11/21 14:48 Lymphocytes % (Manual) 2 % (13-43) L 03/11/21 14:48 Monocytes % (Manual) 1 % (4-9) L 03/11/21 14:48 Plt Morphology Comment Normal (NORMAL) 03/11/21 14:48 RBC Morphology Abnormal (NORMAL) A 03/11/21 14:48 Hypochromasia Slight A 03/11/21 14:48 Anisocytosis 1+ A 03/11/21 14:48 Sodium 144 mmol/L (136-145) 03/13/21 04:10 Corrected Sodium TNP 03/13/21 04:10 Potassium 2.4 mmol/L (3.5-5.1) L* 03/13/21 04:10 Chloride 103 mmol/L (98-107) 03/13/21 04:10 Carbon Dioxide 35.9 mmol/L (21-32) H 03/13/21 04:10 BUN 20 mg/dL (7-18) H 03/13/21 04:10 Creatinine 0.75 mg/dL (0.55-1.02) 03/13/21 04:10 Est GFR (MDRD) Af Amer > 60 (>60) 03/13/21 04:10 Est GFR (MDRD) Non-Af > 60 (>60) 03/13/21 04:10 Glucose 94 mg/dL (65-99) 03/13/21 04:10 POC Glucose (mg/dL) 92 mg/dL (65-99) 03/13/21 15:32 Lactic Acid 0.9 mmol/L (0.4-2.0) 03/12/21 04:20 Calcium 9.2 mg/dL (8.5-10.1) 03/13/21 04:10 Corrected Calcium 10.7 mg/dL (8.5-10.1) H 03/13/21 04:10 Magnesium 1.5 mg/dL (1.7-2.9) L 03/13/21 04:10 Iron 20 ug/dL (50-175) L 03/11/21 14:48 Transferrin 183 mg/dL (202-364) L 03/11/21 14:48 Ferritin 119 ng/mL (8-252) 03/11/21 14:48 Total Bilirubin 0.30 mg/dL (0.2-1.0) 03/13/21 04:10 AST 19 Units/L (15-37) 03/13/21 04:10 ALT 12 Units/L (12-78) 03/13/21 04:10 Alkaline Phosphatase 60 Units/L (46-116) 03/13/21 04:10 Total Protein 6.2 g/dL (6.4-8.2) L 03/13/21 04:10 Albumin 2.1 g/dL (3.4-5.0) L 03/13/21 04:10 Globulin 4.1 g/dL (2.5-4.5) 03/13/21 04:10 Albumin/Globulin Ratio 0.5 Ratio (1.1-2.1) L 03/13/21 04:10 Vitamin B12 796 pg/mL (193-986) 03/11/21 14:48 Folate 15.9 ng/mL (>8.6) 03/11/21 14:48 Specimen Type Catherized urine 03/11/21 16:05 Urine Color Dark yellow (YELLOW) 03/11/21 16:05 Urine Appearance Cloudy (CLEAR) 03/11/21 16:05 Urine pH 8.0 (5.0 - 8.0) 03/11/21 16:05 Ur Specific [place] 1.015 (1.000-1.030) 03/11/21 16:05 Urine Protein 3+ (NEGATIVE) 03/11/21 16:05 Urine Glucose (UA) Negative (NEGATIVE) 03/11/21 16:05 Urine Ketones 1+ (NEGATIVE) 03/11/21 16:05 Urine Occult Blood 5+ (NEGATIVE) 03/11/21 16:05 Urine Nitrite Positive (NEGATIVE) 03/11/21 16:05 Urine Bilirubin Negative (NEGATIVE) 03/11/21 16:05 Urine Urobilinogen Normal (NORMAL) 03/11/21 16:05 Ur Leukocyte Esterase 3+ (NEGATIVE) 03/11/21 16:05 Urine RBC 30-50 /HPF (0-3) A 03/11/21 16:05 Urine WBC 20-30 /HPF (0-5) A 03/11/21 16:05 Ur Squamous Epith Cells Rare /HPF (NEGATIVE) 03/11/21 16:05 Amorphous Sediment 4+ /HPF (NEGATIVE) 03/11/21 16:05 Urine Bacteria 4+ /HPF (NEGATIVE) 03/11/21 16:05 Ur Culture Indicated? Yes/culture set up 03/11/21 16:05 SARS CoV-2 RNA Rapid TINY Negative (NEGATIVE) 03/11/21 17:42 - Assessment and Plan 1: GI bleeding propably errosive gastritis . ( subsiding ) . oropharyngeal dysphagia .. having further eval by speech Tx . d/w family the benefits of Endoscopy and PEG placement . meanwhile will try small meals of mechanical soft diet . - Problem Patient Problems: Patient Problems Sepsis (Acute) A41.9 Acute UTI (Acute) N39.0
[2021-03-13] MEDS: K-RIDER 10 MEQ/NS 100 ML 10 MEQ/100 ML BAG IV PRN ×2 (21:49→23:00)
[2021-03-13] MEDS: VALIUM INJ IVP PRN (22:20)
--- NOTE | 2021-03-13 22:29 | PCM.PROG ---
Progress Note Progress Note for Day of Date of Exam: 03/13/21 Subjective Subjective: Patient seen at bedside. Patient has not had any more emesis, Hgb has stabilized at 8.3 this morning. Discussed with patient and daughter speech therapy evaluation and recommendations of NPO. Discussed risks related to oral intake and aspiration. Patient and daughter understand the risk of aspiration and would like to continue with mechanical soft diet. Patient is failure to thrive with decreased appetite and poor oral intake. CEA was elevated in the past but no further work up was done due to patient's chronic comorbidities including severe COPD and chronic hip fracture. Labs: Hgb 8.3 Plt 485 K: 2.9 Na: 144 BUN/Cr: 20/0.75 Plan: discussed with daughter about additional imaging including CT-head and CTAP. Daughter agreed for imaging. Will order CT-head and CTAP to evaluate further. Patient was at home with hospice prior to this admission. Discussed hospice care with daughter and patient and they will be continuing hospice care after discharge. Continue IV meropenem, follow urine and blood Cx. Dr. Steiner will also be discussing goals of care with patient and her daughter including PEG tube placement. Replace potassium as per protocol. Continue IV protonix. Monitor AM labs and imaging. Past Medical Family Social History Past Med/Fam/Surg Hx: No changes since H&P Allergies: Allergies ceftriaxone [From Rocephin] Allergy (Verified 01/22/18 15:54) dexamethasone [From Decadron] Allergy (Verified 01/22/18 15:54) Penicillins Allergy (Verified 01/22/18 15:54) Sulfa (Sulfonamide Antibiotics) [SULFA] Allergy (Verified 01/22/18 15:54) Review of Systems ROS: No change since H&P Vital Signs and I&O's Vital Signs: Temperature 98.1 F Pulse Rate 96 Respiratory Rate 20 Blood Pressure [Left Calf] 110/68 Blood Pressure [Right Calf] 126/81 Blood Pressure [Left Arm] 159/76 Blood Pressure 159/79 O2 Sat by Pulse Oximetry 100 Intake and Output: Intake & Output 03/10/21 03/11/21 03/12/21 03/13/21 23:59 23:59 23:59 23:59 Intake Total 393 / 393 3120 / 3120 2071 / 2071 Output Total 325 / 325 1550 / 1550 1450 / 1450 Balance 68 / 1570 / 1570 622 / 622 Physical Exam Oriented: Normal Eyes: Normal Ear: Normal Nose: Normal Throat: Normal Respiratory: Generalized and Diminished Cardiovascular: Tachycardia Auscultation: Bowel Sounds: Normal Tenderness: Normal Skin: Other (decubitus ulcer right buttocks) Musculoskeletal: Normal Psychiatric: Normal Mood Description: Calm and Appropriate Affect: Normal Speech Pattern: Clear and Appropriate Laboratory and Diagnostics Result Diagrams: 03/13/21 04:10 03/13/21 19:01 Labs: 03/11/21 16:05 Urine,Catheterized Urine Culture - Final Escherichia Coli 03/11/21 21:00 Buttock Wound Culture - Final Escherichia Coli Laboratory WBC 13.2 X10^3/uL (3.6-10.0) H 03/13/21 04:10 RBC 2.69 X10^6/uL (3.5-5.4) L 03/13/21 04:10 Hgb 8.3 g/dL (12.0-16.0) L 03/13/21 04:10 Hct 24.9 % (36.0-47.0) L 03/13/21 04:10 MCV 92.6 fL (80.0-100.0) 03/13/21 04:10 MCH 30.9 pg (27.0-34.0) 03/13/21 04:10 MCHC 33.4 g/dL (33.0-35.0) 03/13/21 04:10 RDW 12.9 % (11.6-16.5) 03/13/21 04:10 Plt Count 485 X10^3/uL (150.0-450.0) H 03/13/21 04:10 Plt Count Comment Increased (ADEQUATE) A 03/11/21 14:48 MPV 6.4 fL (7.4-11.0) L 03/13/21 04:10 Neut % (Auto) 84.5 % (42.0-75.0) H 03/13/21 04:10 Lymph % (Auto) 10.3 % (21.0-51.0) L 03/13/21 04:10 [place] % (Auto) 5.0 % (0.0-13.0) 03/13/21 04:10 Eos % (Auto) 0.0 % (0.9-2.9) L 03/13/21 04:10 Baso % (Auto) 0.2 % (0.2-1.0) 03/13/21 04:10 Neut # (Auto) 11.1 x10^3/uL (2.2-4.8) H 03/13/21 04:10 Lymph # (Auto) 1.4 X10^3/uL (1.3-2.9) 03/13/21 04:10 [place] # (Auto) 0.7 x10^3/uL (0.3-0.8) 03/13/21 04:10 Eos # (Auto) 0.0 x10^3/uL (0.0-0.2) 03/13/21 04:10 Baso # (Auto) 0.0 X10^3/uL (0.0-0.1) 03/13/21 04:10 Absolute Nucleated RBC 0.0 /100WBC 03/13/21 04:10 Total Counted 100 03/11/21 14:48 Neutrophils % (Manual) 91 % (39-76) H 03/11/21 14:48 Band Neutrophils % 6 % (0-10) 03/11/21 14:48 Lymphocytes % (Manual) 2 % (13-43) L 03/11/21 14:48 Monocytes % (Manual) 1 % (4-9) L 03/11/21 14:48 Plt Morphology Comment Normal (NORMAL) 03/11/21 14:48 RBC Morphology Abnormal (NORMAL) A 03/11/21 14:48 Hypochromasia Slight A 03/11/21 14:48 Anisocytosis 1+ A 03/11/21 14:48 Sodium 144 mmol/L (136-145) 03/13/21 04:10 Corrected Sodium TNP 03/13/21 04:10 Potassium 2.9 mmol/L (3.5-5.1) L* 03/13/21 19:01 Chloride 103 mmol/L (98-107) 03/13/21 04:10 Carbon Dioxide 35.9 mmol/L (21-32) H 03/13/21 04:10 BUN 20 mg/dL (7-18) H 03/13/21 04:10 Creatinine 0.75 mg/dL (0.55-1.02) 03/13/21 04:10 Est GFR (MDRD) Af Amer > 60 (>60) 03/13/21 04:10 Est GFR (MDRD) Non-Af > 60 (>60) 03/13/21 04:10 Glucose 94 mg/dL (65-99) 03/13/21 04:10 POC Glucose (mg/dL) 84 mg/dL (65-99) 03/13/21 20:00 Lactic Acid 0.9 mmol/L (0.4-2.0) 03/12/21 04:20 Calcium 9.2 mg/dL (8.5-10.1) 03/13/21 04:10 Corrected Calcium 10.7 mg/dL (8.5-10.1) H 03/13/21 04:10 Magnesium 1.5 mg/dL (1.7-2.9) L 03/13/21 04:10 Iron 20 ug/dL (50-175) L 03/11/21 14:48 Transferrin 183 mg/dL (202-364) L 03/11/21 14:48 Ferritin 119 ng/mL (8-252) 03/11/21 14:48 Total Bilirubin 0.30 mg/dL (0.2-1.0) 03/13/21 04:10 AST 19 Units/L (15-37) 03/13/21 04:10 ALT 12 Units/L (12-78) 03/13/21 04:10 Alkaline Phosphatase 60 Units/L (46-116) 03/13/21 04:10 Total Protein 6.2 g/dL (6.4-8.2) L 03/13/21 04:10 Albumin 2.1 g/dL (3.4-5.0) L 03/13/21 04:10 Globulin 4.1 g/dL (2.5-4.5) 03/13/21 04:10 Albumin/Globulin Ratio 0.5 Ratio (1.1-2.1) L 03/13/21 04:10 Vitamin B12 796 pg/mL (193-986) 03/11/21 14:48 Folate 15.9 ng/mL (>8.6) 03/11/21 14:48 Specimen Type Catherized urine 03/11/21 16:05 Urine Color Dark yellow (YELLOW) 03/11/21 16:05 Urine Appearance Cloudy (CLEAR) 03/11/21 16:05 Urine pH 8.0 (5.0 - 8.0) 03/11/21 16:05 Ur Specific [place] 1.015 (1.000-1.030) 03/11/21 16:05 Urine Protein 3+ (NEGATIVE) 03/11/21 16:05 Urine Glucose (UA) Negative (NEGATIVE) 03/11/21 16:05 Urine Ketones 1+ (NEGATIVE) 03/11/21 16:05 Urine Occult Blood 5+ (NEGATIVE) 03/11/21 16:05 Urine Nitrite Positive (NEGATIVE) 03/11/21 16:05 Urine Bilirubin Negative (NEGATIVE) 03/11/21 16:05 Urine Urobilinogen Normal (NORMAL) 03/11/21 16:05 Ur Leukocyte Esterase 3+ (NEGATIVE) 03/11/21 16:05 Urine RBC 30-50 /HPF (0-3) A 03/11/21 16:05 Urine WBC 20-30 /HPF (0-5) A 03/11/21 16:05 Ur Squamous Epith Cells Rare /HPF (NEGATIVE) 03/11/21 16:05 Amorphous Sediment 4+ /HPF (NEGATIVE) 03/11/21 16:05 Urine Bacteria 4+ /HPF (NEGATIVE) 03/11/21 16:05 Ur Culture Indicated? Yes/culture set up 03/11/21 16:05 SARS CoV-2 RNA Rapid TINY Negative (NEGATIVE) 03/11/21 17:42 Plan (1) Acute UTI: Status: Acute Plan: Urine culture pending Antibiotics:Meropenem (2) Intractable nausea and vomiting: Status: Acute (3) Sepsis: Status: Acute Qualifiers: Sepsis acute organ dysfunction status: without acute organ dysfunction Sepsis type: Escherichia coli Qualified Code(s): A41.51 - Sepsis due to Esche richia coli [E. coli] (4) Failure to thrive: Status: Acute Qualifiers: Failure to thrive age range: in adult Qualified Code(s): R62.7 - Adult failure to thrive (5) Hypokalemia: Status: Acute (6) Generalized pain: Status: Chronic (7) Elevated CEA: Status: Acute (8) Closed hip fracture: Status: Acute Qualifiers: Encounter type: initial encounter Laterality: right Qualified Code(s): S72.001A - Fracture of unspecified part of neck of right femur, initial encounter for closed fracture (9) Immobility: Status: Acute (10) Chronic respiratory failure: Status: Acute Qualifiers: Respiratory failure complication: hypoxia and hypercapnia Qualified Cod e(s): J96.11 - Chronic respiratory failure with hypoxia; J96.12 - Chronic respiratory failure with hypercapnia (11) Diabetes mellitus: Status: Chronic Qualifiers: Diabetes mellitus complication status: with hyperglycemia Diabetes mellitus keno terminal operator insulin use: with [facility] use Diabetes mellitus type: type 2 Qualified Code(s): E11.65 - Type 2 diabetes mellitus with hyperglycemia; Z79.4 - parts counterman (current) use of insulin
[2021-03-14] MEDS: K-RIDER 10 MEQ/NS 100 ML 10 MEQ/100 ML BAG IV PRN ×4 (01:07→02:55)
[2021-03-14] MEDS: LOPRESSOR INJ 5 MG AMP IVP SCH ×2 (03:55→09:08)
[2021-03-14] MEDS: MORPHINE SULFATE INJ 2 MG INJ IVP PRN ×2 (04:16→09:49)
[2021-03-14] MEDS: MERREM VIAL 500 MG in NS 100 ML IV + SPIKE MINIBAG* 100 ML IV SCH (05:06)
[2021-03-14] MEDS: D5W 1000 ML IV 1,000 ML IV SCH (05:06)
[2021-03-14 06:21] LABS: BASOPHILS % (AUTO) 0.4 % (0.2-1.0); EOSINOPHILS # (AUTO) 0.2 x10^3/uL (0.0-0.2); EOSINOPHILS % (AUTO) 1.8 % (0.9-2.9); HEMATOCRIT 24.4 % (36.0-47.0); HEMOGLOBIN 8.2 g/dL (12.0-16.0); LYMPHOCYTES # (AUTO) 1.6 X10^3/uL (1.3-2.9); LYMPHOCYTES % (AUTO) 17.2 % (21.0-51.0); MEAN CORPUSCULAR HGB CONC 33.6 g/dL (33.0-35.0); MEAN CORPUSCULAR VOLUME 92.3 fL (80.0-100.0); MEAN PLATELET VOLUME 6.2 fL (7.4-11.0); MONOCYTES # (AUTO) 0.8 x10^3/uL (0.3-0.8); MONOCYTES % (AUTO) 8.2 % (0.0-13.0); NEUTROPHILS # (AUTO) 6.7 x10^3/uL (2.2-4.8); NEUTROPHILS % (AUTO) 72.4 % (42.0-75.0); PLATELET COUNT 455 X10^3/uL (150.0-450.0); RED BLOOD COUNT 2.64 X10^6/uL (3.5-5.4); WHITE BLOOD COUNT 9.3 X10^3/uL (3.6-10.0)
[2021-03-14 06:27] LABS: ALANINE AMINOTRANSFERASE 14 Units/L (12-78); ALKALINE PHOSPHATASE 60 Units/L (46-116); ASPARTATE AMINO TRANSFERASE 21 Units/L (15-37); BLOOD UREA NITROGEN 10 mg/dL (7-18); CALCIUM 8.9 mg/dL (8.5-10.1); CARBON DIOXIDE 34.4 mmol/L (21-32); CHLORIDE 102 mmol/L (98-107); COR CA(FOR HYPOALB) 10.5 mg/dL (8.5-10.1); CREATININE 0.75 mg/dL (0.55-1.02); MAGNESIUM 1.7 mg/dL (1.7-2.9); SODIUM 139 mmol/L (136-145); TOTAL PROTEIN 5.8 g/dL (6.4-8.2); eGFR NON BLACK RACES > 60 (>60)
[2021-03-14] MEDS: PROTONIX INJ 40 MG VIAL IVP SCH (09:06)
[2021-03-14] MEDS: PEPCID 20 MG IV PREMIX* 20 MG/50 ML BAG IV SCH (09:08)
[2021-03-14] MEDS: MAGNESIUM SULFATE 1 GRAM/100 mL PREMIX 1 GM/100 ML BAG IV PRN (09:46)
--- NOTE | 2021-03-14 09:54 | W.DIS.FURT ---
Summary of Discharge Discharge Summary of Date Date of Exam: 03/14/21 Admission Date Date of Admission: 03/11/21 Admission Diagnosis Patient Problems (Updated 03/13/21 @ 22:29 by Ashutosh Baron) Sepsis (Acute) A41.9 Acute UTI (Acute) N39.0 Hospital Course: Patient is a 65 year old female admitted after having dark emesis and found also to have an acute UTI. Hospital course initially involved NPO, PPI, antiemetics, and trending Hgb which did stabilize and pt did not have any further episodes while inpatient. Surgery consulted, likely erosive gastritis. Speech therapy evaluation after noticing patient having difficulty with oral feeding. Recommendations of NPO until further studies. Discussed risks related to oral intake and aspiration, as well as options such as PEG tube with its associated b enefits and risk. Patient and daughter understand the risk of aspiration and would like to continue with mechanical soft diet. Patient does have failure to thrive with decreased appetite and poor oral intake. CEA was elevated in the past but no further work up was done due to patient's chronic comorbidities including severe COPD and chronic hip fracture. CT-head and CTAP was obtained but did not reveal any definitive diagnostic findings. Patient was at home with hospice prior to this admission. Discussed hospice care with daughter and patient and they will be continuing hospice care after discharge. Pt received IV meropenem for cystitis that is also likely chronic, urine culture positive for pansensitive E. coli. Rx ciprofloxacin. Pt discharged with home hospice. Vital Signs: Vital Signs (72 hours) 03/11/21 14:21 03/11/21 14:29 03/11/21 14:30 Temperature 98.3 F Pulse Rate 156 H 160 H 162 H Respiratory Rate 22 21 20 Blood Pressure 125/68 124/72 O2 Sat by Pulse Oximetry 98 100 97 03/11/21 15:00 03/11/21 15:15 03/11/21 15:30 Temperature Pulse Rate 160 H 175 H 156 H Respiratory Rate 29 H 28 H 26 H Blood Pressure 114/85 122/87 O2 Sat by Pulse Oximetry 99 100 100 03/11/21 15:45 03/11/21 15:59 03/11/21 16:00 Temperature Pulse Rate 150 H 153 H Respiratory Rate 24 24 Blood Pressure 139/81 O2 Sat by Pulse Oximetry 98 98 03/11/21 16:02 03/11/21 16:15 03/11/21 16:30 Temperature Pulse Rate 164 H 151 H 247 H Respiratory Rate 30 H 30 H 44 H Blood Pressure O2 Sat by Pulse Oximetry 95 03/11/21 16:45 03/11/21 16:48 03/11/21 17:00 Temperature Pulse Rate 256 H 186 H 156 H Respiratory Rate 39 H 30 H 35 H Blood Pressure 139/84 111/68 O2 Sat by Pulse Oximetry 79 L 03/11/21 17:15 03/11/21 17:30 03/11/21 17:45 Temperature Pulse Rate 162 H 168 H 167 H Respiratory Rate 32 H 29 H 36 H Blood Pressure 131/80 O2 Sat by Pulse Oximetry 03/11/21 18:00 03/11/21 18:15 03/11/21 18:30 Temperature Pulse Rate 157 H 168 H 166 H Respiratory Rate 34 H 34 H 39 H Blood Pressure 143/85 128/79 O2 Sat by Pulse Oximetry 03/11/21 18:45 03/11/21 19:30 03/11/21 20:00 Temperature 99.2 F Pulse Rate 168 H 155 H 168 H Respiratory Rate 35 H 28 H Blood Pressure 120/78 121/82 O2 Sat by Pulse Oximetry 100 96 03/11/21 21:00 03/11/21 22:00 03/11/21 23:00 Temperature Pulse Rate 154 H 159 H 131 H Respiratory Rate 26 H 26 H 22 Blood Pressure 128/77 160/90 120/77 O2 Sat by Pulse Oximetry 100 100 100 03/12/21 00:00 03/12/21 01:00 03/12/21 02:00 Temperature 100.2 F H Pulse Rate 147 H 145 H 130 H Respiratory Rate 20 22 28 H Blood Pressure 139/82 129/85 146/80 O2 Sat by Pulse Oximetry 99 99 98 03/12/21 03:00 03/12/21 04:00 03/12/21 05:00 Temperature 99.3 F Pulse Rate 115 H 126 H 144 H Respiratory Rate 28 H 28 H 34 H Blood Pressure 132/72 148/99 146/95 O2 Sat by Pulse Oximetry 100 100 100 03/12/21 06:00 03/12/21 07:00 03/12/21 08:00 Temperature 100.0 F H Pulse Rate 116 H 136 H 120 H Respiratory Rate 20 18 24 Blood Pressure 134/71 124/81 140/66 O2 Sat by Pulse Oximetry 100 100 100 03/12/21 08:15 03/12/21 08:30 03/12/21 09:00 Temperature Pulse Rate 128 H 130 H 130 H Respiratory Rate 27 H 30 H 19 Blood Pressure 115/72 O2 Sat by Pulse Oximetry 100 100 98 03/12/21 10:00 03/12/21 10:23 03/12/21 11:00 Temperature Pulse Rate 122 H 106 H Respiratory Rate 22 22 26 H Blood Pressure 159/64 140/67 O2 Sat by Pulse Oximetry 100 100 03/12/21 11:23 03/12/21 12:00 03/12/21 13:01 Temperature 98.8 F Pulse Rate 156 H 116 H Respiratory Rate 26 H 32 H 22 Blood Pressure 150/83 131/93 O2 Sat by Pulse Oximetry 70 L 98 03/12/21 14:00 03/12/21 14:16 03/12/21 14:46 Temperature Pulse Rate 117 H Respiratory Rate 22 24 20 Blood Pressure 145/83 O2 Sat by Pulse Oximetry 100 03/12/21 15:00 03/12/21 16:01 03/12/21 17:00 Temperature 98.7 F Pulse Rate 127 H 126 H 114 H Respiratory Rate 24 17 17 Blood Pressure 131/87 150/72 147/95 O2 Sat by Pulse Oximetry 100 100 100 03/12/21 18:00 03/12/21 18:21 03/12/21 18:51 Temperature Pulse Rate 113 H Respiratory Rate 13 18 20 Blood Pressure 133/74 O2 Sat by Pulse Oximetry 100 03/12/21 19:00 03/12/21 20:00 03/12/21 21:00 Temperature 97.9 F Pulse Rate 101 H 108 H 108 H Respiratory Rate 20 18 18 Blood Pressure 126/94 157/81 144/88 O2 Sat by Pulse Oximetry 100 100 100 03/12/21 22:00 03/12/21 22:17 03/12/21 22:47 Temperature Pulse Rate 112 H Respiratory Rate 16 20 20 Blood Pressure 116/64 O2 Sat by Pulse Oximetry 100 03/12/21 23:00 03/13/21 00:00 03/13/21 01:00 Temperature 99.4 F Pulse Rate 104 H 110 H 155 H Respiratory Rate 18 16 16 Blood Pressure 138/78 152/67 122/78 O2 Sat by Pulse Oximetry 100 100 100 03/13/21 01:32 03/13/21 01:36 03/13/21 02:00 Temperature Pulse Rate 178 H Respiratory Rate 22 Blood Pressure 122/78 122/78 130/68 O2 Sat by Pulse Oximetry 100 03/13/21 02:11 03/13/21 02:41 03/13/21 03:00 Temperature Pulse Rate 153 H Respiratory Rate 22 16 20 Blood Pressure 122/64 O2 Sat by Pulse Oximetry 100 03/13/21 04:00 03/13/21 05:00 03/13/21 06:00 Temperature 98.8 F Pulse Rate 141 H 124 H 109 H Respiratory Rate 16 19 21 Blood Pressure 117/83 91/67 119/56 O2 Sat by Pulse Oximetry 100 100 100 03/13/21 07:00 03/13/21 07:30 03/13/21 08:01 Temperature 99.0 F Pulse Rate 100 H 99 H 91 H Respiratory Rate 18 16 20 Blood Pressure 96/51 109/54 O2 Sat by Pulse Oximetry 99 100 100 03/13/21 09:00 03/13/21 10:00 03/13/21 11:00 Temperature Pulse Rate 92 H 94 H 92 H Respiratory Rate 18 19 22 Blood Pressure 120/66 139/98 166/107 O2 Sat by Pulse Oximetry 100 100 100 03/13/21 11:22 03/13/21 11:30 03/13/21 12:19 Temperature 97.9 F Pulse Rate 106 H 98 H 114 H Respiratory Rate 19 24 14 Blood Pressure 146/62 O2 Sat by Pulse Oximetry 100 100 100 03/13/21 12:47 03/13/21 13:05 03/13/21 13:17 Temperature Pulse Rate 90 Respiratory Rate 22 25 H 22 Blood Pressure 144/56 O2 Sat by Pulse Oximetry 100 03/13/21 14:01 03/13/21 15:00 03/13/21 16:00 Temperature 98.2 F Pulse Rate 90 91 H 95 H Respiratory Rate 22 19 19 Blood Pressure 140/58 153/120 158/71 O2 Sat by Pulse Oximetry 100 100 100 03/13/21 17:00 03/13/21 18:00 03/13/21 19:00 Temperature Pulse Rate 99 H 98 H 124 H Respiratory Rate 18 13 19 Blood Pressure 153/67 161/67 179/78 O2 Sat by Pulse Oximetry 100 100 100 03/13/21 19:15 03/13/21 19:45 03/13/21 20:00 Temperature 98.1 F Pulse Rate 96 H Respiratory Rate 20 20 15 Blood Pressure 180/93 O2 Sat by Pulse Oximetry 100 03/13/21 21:00 03/13/21 21:06 03/13/21 22:00 Temperature Pulse Rate 96 H 95 H Respiratory Rate 20 23 Blood Pressure 159/79 159/79 144/63 O2 Sat by Pulse Oximetry 100 100 03/13/21 23:00 03/13/21 23:19 03/13/21 23:30 Temperature Pulse Rate 112 H 94 H Respiratory Rate 23 18 25 H Blood Pressure 157/68 163/77 O2 Sat by Pulse Oximetry 99 100 03/13/21 23:49 03/14/21 00:00 03/14/21 00:02 Temperature 98.3 F Pulse Rate 105 H Respiratory Rate 19 18 Blood Pressure 178/81 189/72 O2 Sat by Pulse Oximetry 100 03/14/21 00:30 03/14/21 00:31 03/14/21 00:34 Temperature Pulse Rate 106 H 102 H 97 H Respiratory Rate 28 H 16 24 Blood Pressure 194/73 158/74 O2 Sat by Pulse Oximetry 100 100 100 03/14/21 01:00 03/14/21 01:01 03/14/21 01:30 Temperature Pulse Rate 117 H 112 H 99 H Respiratory Rate 22 21 24 Blood Pressure 171/72 189/79 O2 Sat by Pulse Oximetry 100 100 100 03/14/21 01:31 03/14/21 02:00 03/14/21 02:02 Temperature Pulse Rate 94 H 102 H 102 H Respiratory Rate 35 H 20 22 Blood Pressure 171/72 190/83 154/72 O2 Sat by Pulse Oximetry 100 100 100 03/14/21 02:30 03/14/21 03:00 03/14/21 03:30 Temperature Pulse Rate 106 H 115 H 108 H Respiratory Rate 35 H 21 21 Blood Pressure 160/69 161/68 183/123 O2 Sat by Pulse Oximetry 100 100 100 03/14/21 03:31 03/14/21 03:55 03/14/21 04:00 Temperature 98.7 F Pulse Rate 105 H 111 H Respiratory Rate 22 22 Blood Pressure 164/75 178/74 180/104 O2 Sat by Pulse Oximetry 100 100 03/14/21 04:02 03/14/21 04:16 03/14/21 04:30 Temperature Pulse Rate 104 H 100 H Respiratory Rate 21 23 19 Blood Pressure 178/74 O2 Sat by Pulse Oximetry 100 100 03/14/21 04:31 03/14/21 04:46 03/14/21 05:00 Temperature Pulse Rate 95 H 104 H Respiratory Rate 19 19 25 H Blood Pressure 169/73 187/91 O2 Sat by Pulse Oximetry 100 100 03/14/21 05:30 03/14/21 05:31 03/14/21 06:00 Temperature Pulse Rate 96 H 97 H 97 H Respiratory Rate 19 22 20 Blood Pressure 163/71 188/75 O2 Sat by Pulse Oximetry 100 100 100 03/14/21 06:30 03/14/21 07:00 03/14/21 07:30 Temperature Pulse Rate 101 H 106 H 109 H Respiratory Rate 20 18 19 Blood Pressure 179/84 185/87 O2 Sat by Pulse Oximetry 100 100 100 03/14/21 08:00 03/14/21 08:01 03/14/21 08:30 Temperature 98.7 F Pulse Rate 99 H 107 H 100 H Respiratory Rate 18 21 16 Blood Pressure 151/93 O2 Sat by Pulse Oximetry 100 100 100 03/14/21 08:31 03/14/21 09:00 03/14/21 09:06 Temperature Pulse Rate 103 H 115 H Respiratory Rate 17 18 Blood Pressure 188/77 185/100 202/95 O2 Sat by Pulse Oximetry 100 100 03/14/21 09:08 03/14/21 09:23 03/14/21 09:49 Temperature Pulse Rate 118 H 98 H Respiratory Rate 20 23 21 Blood Pressure 166/104 125/60 O2 Sat by Pulse Oximetry 100 100 Labs: Laboratory Last Values WBC 9.3 X10^3/uL (3.6-10.0) 03/14/21 06:04 RBC 2.64 X10^6/uL (3.5-5.4) L 03/14/21 06:04 Hgb 8.2 g/dL (12.0-16.0) L 03/14/21 06:04 Hct 24.4 % (36.0-47.0) L 03/14/21 06:04 MCV 92.3 fL (80.0-100.0) 03/14/21 06:04 MCH 31.0 pg (27.0-34.0) 03/14/21 06:04 MCHC 33.6 g/dL (33.0-35.0) 03/14/21 06:04 RDW 13.0 % (11.6-16.5) 03/14/21 06:04 Plt Count 455 X10^3/uL (150.0-450.0) H 03/14/21 06:04 Plt Count Comment Increased (ADEQUATE) A 03/11/21 14:48 MPV 6.2 fL (7.4-11.0) L 03/14/21 06:04 Neut % (Auto) 72.4 % (42.0-75.0) 03/14/21 06:04 Lymph % (Auto) 17.2 % (21.0-51.0) L 03/14/21 06:04 [place] % (Auto) 8.2 % (0.0-13.0) 03/14/21 06:04 Eos % (Auto) 1.8 % (0.9-2.9) 03/14/21 06:04 Baso % (Auto) 0.4 % (0.2-1.0) 03/14/21 06:04 Neut # (Auto) 6.7 x10^3/uL (2.2-4.8) H 03/14/21 06:04 Lymph # (Auto) 1.6 X10^3/uL (1.3-2.9) 03/14/21 06:04 [place] # (Auto) 0.8 x10^3/uL (0.3-0.8) 03/14/21 06:04 Eos # (Auto) 0.2 x10^3/uL (0.0-0.2) 03/14/21 06:04 Baso # (Auto) 0.0 X10^3/uL (0.0-0.1) 03/14/21 06:04 Absolute Nucleated RBC 0.1 /100WBC 03/14/21 06:04 Total Counted 100 03/11/21 14:48 Neutrophils % (Manual) 91 % (39-76) H 03/11/21 14:48 Band Neutrophils % 6 % (0-10) 03/11/21 14:48 Lymphocytes % (Manual) 2 % (13-43) L 03/11/21 14:48 Monocytes % (Manual) 1 % (4-9) L 03/11/21 14:48 Plt Morphology Comment Normal (NORMAL) 03/11/21 14:48 RBC Morphology Abnormal (NORMAL) A 03/11/21 14:48 Hypochromasia Slight A 03/11/21 14:48 Anisocytosis 1+ A 03/11/21 14:48 Sodium 139 mmol/L (136-145) 03/14/21 06:04 Corrected Sodium TNP 03/14/21 06:04 Potassium 4.0 mmol/L (3.5-5.1) 03/14/21 06:04 Chloride 102 mmol/L (98-107) 03/14/21 06:04 Carbon Dioxide 34.4 mmol/L (21-32) H 03/14/21 06:04 BUN 10 mg/dL (7-18) 03/14/21 06:04 Creatinine 0.75 mg/dL (0.55-1.02) 03/14/21 06:04 Est GFR (MDRD) Af Amer > 60 (>60) 03/14/21 06:04 Est GFR (MDRD) Non-Af > 60 (>60) 03/14/21 06:04 Glucose 71 mg/dL (65-99) 03/14/21 06:04 POC Glucose (mg/dL) 76 mg/dL (65-99) 03/14/21 06:25 Lactic Acid 0.9 mmol/L (0.4-2.0) 03/12/21 04:20 Calcium 8.9 mg/dL (8.5-10.1) 03/14/21 06:04 Corrected Calcium 10.5 mg/dL (8.5-10.1) H 03/14/21 06:04 Magnesium 1.7 mg/dL (1.7-2.9) 03/14/21 06:04 Iron 20 ug/dL (50-175) L 03/11/21 14:48 Transferrin 183 mg/dL (202-364) L 03/11/21 14:48 Ferritin 119 ng/mL (8-252) 03/11/21 14:48 Total Bilirubin 0.20 mg/dL (0.2-1.0) 03/14/21 06:04 AST 21 Units/L (15-37) 03/14/21 06:04 ALT 14 Units/L (12-78) 03/14/21 06:04 Alkaline Phosphatase 60 Units/L (46-116) 03/14/21 06:04 Total Protein 5.8 g/dL (6.4-8.2) L 03/14/21 06:04 Albumin 2.0 g/dL (3.4-5.0) L 03/14/21 06:04 Globulin 3.8 g/dL (2.5-4.5) 03/14/21 06:04 Albumin/Globulin Ratio 0.5 Ratio (1.1-2.1) L 03/14/21 06:04 Vitamin B12 796 pg/mL (193-986) 03/11/21 14:48 Folate 15.9 ng/mL (>8.6) 03/11/21 14:48 Specimen Type Catherized urine 03/11/21 16:05 Urine Color Dark yellow (YELLOW) 03/11/21 16:05 Urine Appearance Cloudy (CLEAR) 03/11/21 16:05 Urine pH 8.0 (5.0 - 8.0) 03/11/21 16:05 Ur Specific [place] 1.015 (1.000-1.030) 03/11/21 16:05 Urine Protein 3+ (NEGATIVE) 03/11/21 16:05 Urine Glucose (UA) Negative (NEGATIVE) 03/11/21 16:05 Urine Ketones 1+ (NEGATIVE) 03/11/21 16:05 Urine Occult Blood 5+ (NEGATIVE) 03/11/21 16:05 Urine Nitrite Positive (NEGATIVE) 03/11/21 16:05 Urine Bilirubin Negative (NEGATIVE) 03/11/21 16:05 Urine Urobilinogen Normal (NORMAL) 03/11/21 16:05 Ur Leukocyte Esterase 3+ (NEGATIVE) 03/11/21 16:05 Urine RBC 30-50 /HPF (0-3) A 03/11/21 16:05 Urine WBC 20-30 /HPF (0-5) A 03/11/21 16:05 Ur Squamous Epith Cells Rare /HPF (NEGATIVE) 03/11/21 16:05 Amorphous Sediment 4+ /HPF (NEGATIVE) 03/11/21 16:05 Urine Bacteria 4+ /HPF (NEGATIVE) 03/11/21 16:05 Ur Culture Indicated? Yes/culture set up 03/11/21 16:05 SARS CoV-2 RNA Rapid TINY Negative (NEGATIVE) 03/11/21 17:42 Reason For Visit: UTI, UROSEPSIS Discharge Date Discharge Date: 03/14/21 Discharge Diagnosis All Active Problems (Updated 03/13/21 @ 22:29 by Ashutosh Baron) Hypokalemia (Acute) Elevated CEA (Acute) Failure to thrive (Acute) Intractable nausea and vomiting (Acute) UTI (urinary tract infection) (Acute) Wound cellulitis (Acute) Closed hip fracture (Acute) Sepsis (Acute) Acute UTI (Acute) Immobility (Acute) Chronic respiratory failure (Acute) Hip fracture, right (Acute) Respiratory distress (Acute) COPD (chronic obstructive pulmonary disease) (Acute) Bronchitis (Chronic) Diabetes mellitus (Chronic) Anxiety (Chronic) Generalized pain (Chronic) Streptococcus pneumoniae infection (Acute) E-coli UTI (Acute) Hypoalbuminemia (Acute) Headache (Acute) Shingles (Acute) Hip fracture, right (Acute) Hypoxia (Acute) Plan of Treatment: Continue with present treatment and follow up plan. Pt is to keep follow up appointment as instructed and take medications as ordered. Discharge Medications Discharge Medications: ceftriaxone [From Rocephin] Allergy (Verified 01/22/18 15:54) dexamethasone [From Decadron] Allergy (Verified 01/22/18 15:54) Penicillins Allergy (Verified 01/22/18 15:54) Sulfa (Sulfonamide Antibiotics) [SULFA] Allergy (Verified 01/22/18 15:54) CONTINUE taking the following medications chlorpromazine 10 mg PO TID 03/12/21 [History] docusate sodium 100 mg PO DAILY 03/12/21 [History] hydroxyzine pamoate 25 mg PO TID PRN 03/12/21 [History] metoprolol succinate 12.5 mg PO BID 03/12/21 [History] ondansetron HCl [Zofran] 4 mg PO BID 03/12/21 [History] oxycodone [Roxicodone] 15 mg PO Q4H PRN 03/12/21 [History] sennosides [senna] 8.6 mg PO BID PRN 03/12/21 [History] verapamil 120 mg PO BID 03/12/21 [History] New Prescriptions ciprofloxacin HCl 500 mg PO BID 5 Days #10 tab 03/14/21 [Rx] oxycodone 5 mg PO Q4H PRN 14 Days #84 tab MDD 6 tabs 03/14/21 [Rx] sucralfate 1 g PO ACHS 30 Days #420 ml 03/14/21 [Rx] Follow up and Referral Follow Up: 1 Week Discharge Disposition Discharge Disposition: Home Discharge Condition: Stable Discharge Plan Discharge Plan Hospital Course: Patient is a 65 year old female admitted after having dark emesis and found also to have an acute UTI. Hospital course initially involved NPO, PPI, antiemetics, and trending Hgb which did stabilize and pt did not have any further episodes while inpatient. Surgery consulted, likely erosive gastritis. Speech therapy evaluation after noticing patient having difficulty with oral feeding. R ecommendations of NPO until further studies. Discussed risks related to oral intake and aspiration, as well as options such as PEG tube with its associated benefits and risk. Patient and daughter understand the risk of aspiration and would like to continue with mechanical soft diet. Patient does have failure to thrive with decreased appetite and poor oral intake. CEA was elevated in the past but no further work up was done due to patient's chronic comorbidities including severe COPD and chronic hip fracture. CT-head and CTAP was obtained but did not reveal any definitive diagnostic findings. Patient was at home with hospice prior to this admission. Discussed hospice care with daughter and patient and they will be continuing hospice care after discharge. Pt received IV meropenem for cystitis that is also likely chronic, urine culture positive for pansensitive E. coli. Rx ciprofloxacin. Pt discharged with home hospice. Patient Disposition: 50 DISCHARGED TO HOSPICE -HOME Condition: Stable Health Concerns: Post Hospitalization: new medications and changes needed to prevent readmission or further decline. Pt educated and given instructions on all concerns. Plan of Treatment: Continue with present treatment and follow up plan. Pt is to keep follow up appointment as instructed and take medications as ordered. Prescription drug monitoring program results: PDMP reviewed and no concerns identified Prescriptions: New ciprofloxacin HCl 500 mg tablet 500 mg PO BID 5 Days Qty: 10 RF: 0 sucralfate 100 mg/mL Suspension 1 g PO ACHS 30 Days Qty: 420 RF: 1 oxycodone 5 mg Tablet 5 mg PO Q4H MDD 6 tabs PRN (Reason: pain) 14 Days Qty: 84 RF: 0 Continued alprazolam 0.25 MG tablet 0.25 mg PO TID PRN (Reason: Anxiety) RF: 0 lansoprazole 30 MG capsule,delayed release(DR/EC) 30 mg PO DAILY RF: 0 gabapentin 100 MG capsule 100 mg PO TID RF: 0 atorvastatin 10 MG tablet 10 tab PO HS RF: 0 aspirin 81 mg Tablet,Chewable 81 mg PO DAILY RF: 0 montelukast 10 MG tablet 10 mg PO HS RF: 0 metoprolol succinate 25 MG tablet extended release 24 hr 12.5 mg PO HS RF: 0 zolpidem 10 MG tablet 1 tab PO HS RF: 0 cyclobenzaprine 10 mg Tablet 10 mg PO BID PRN (Reason: MUSCLE SPASMS) RF: 0 theophylline 400 mg Tablet Extended Release 24 Hr 400 mg PO HS RF: 0 insulin aspart U-100 [Novolog Flexpen U-100 Insulin] 100 unit/mL (3 mL) In sulin Pen See Rx Instructions .ROUTE .COMPLEX RF: 0 olopatadine 0.2 % Drops 1 drp OPHTHALMIC (EYE) DAILY PRN (Reason: ALLERGIES) RF: 0 Linzess 145 mcg Capsule 145 mcg PO DAILY RF: 0 Anoro Ellipta 62.5-25 mcg/actuation Blister With Device 2 inh INHALATION DIRECTED RF: 0 meclizine 25 mg tablet 25 mg PO TID PRNRF: 0 oxycodone [Roxicodone] 15 mg Tablet 15 mg PO Q4H PRNRF: 0 metoprolol succinate 25 mg Tablet Extended Release 24 Hr 12.5 mg PO BID RF: 0 verapamil 120 mg Tablet Extended Release 120 mg PO BID RF: 0 sennosides [senna] 8.6 mg Tablet 8.6 mg PO BID PRNRF: 0 ondansetron HCl [Zofran] 4 mg Tablet 4 mg PO BID RF: 0 chlorpromazine 10 mg Tablet 10 mg PO TID RF: 0 docusate sodium 100 mg Capsule 100 mg PO DAILY RF: 0 hydroxyzine pamoate 25 mg Capsule 25 mg PO TID PRNRF: 0 Discontinued nitrofurantoin monohyd/m-cryst [Macrobid] 100 mg Capsule 100 mg PO DAILY RF: 0 Follow ups/Referrals Follow ups/Referrals: NEREIDA CRISTINA [Primary Care Provider] - 3 days Instructions Instructions: Hypokalemia, Thickening Liquids for Dysphagia Diet, Chronic Obstructive Pulmonary Disease Exacerbation, [id number], Nausea and Vomiting, Adult, [id number], Urinary Tract Infection, Adult, [id number], Type 2 Diabetes Mellitus, Diagnosis, Adult, [id number] Stand Alone Forms: Excuse From Work or School, Precautions for COVID19, Patient Portal, Social Distancing
[2021-03-14 12:52] VITALS: BP 172/70
== END 2021-03-14 13:00 | disposition hospice, home (50) | DRG 884 ==
LOC: ER 14:21 → ICU 19:08
PROVIDERS: ADMIT Internal Medicine; ATTEND Internal Medicine
DX: Z74.01 Bed confinement status; N39.0 Urinary tract infection, site not specified; R41.89 Other symptoms and signs involving cognitive functions and awareness; Z66 Do not resuscitate; B96.29 Other Escherichia coli [E. coli] as the cause of diseases classified elsewhere; R79.89 Other specified abnormal findings of blood chemistry; Z20.822 Contact with and (suspected) exposure to COVID-19; R13.11 Dysphagia, oral phase; J44.9 Chronic obstructive pulmonary disease, unspecified; J96.12 Chronic respiratory failure with hypercapnia; S72.001A Fracture of unspecified part of neck of right femur, initial encounter for closed fracture; R97.0 Elevated carcinoembryonic antigen [CEA]; R11.2 Nausea with vomiting, unspecified; Z79.4 Long term (current) use of insulin; L89.512 Pressure ulcer of right ankle, stage 2; E11.65 Type 2 diabetes mellitus with hyperglycemia; J96.11 Chronic respiratory failure with hypoxia; E87.6 Hypokalemia; X58.XXXA Exposure to other specified factors, initial encounter; R94.31 Abnormal electrocardiogram [ECG] [EKG]; L89.314 Pressure ulcer of right buttock, stage 4; R62.7 Adult failure to thrive; I10 Essential (primary) hypertension